=== PATIENT | male | born 1965 | race Caucasian/White ===

== ENCOUNTER → 2017-12-05 08:01 | Outpatient (CLI) | payer OTHER, SELFPAY | PROVIDERS: Family Provider Family Medicine; PCP Family Medicine; Visit Provider Family Medicine | DX: R07.89 Other chest pain (principal) | CPT/HCPCS: 93017 ==

== ENCOUNTER → 2019-05-27 16:21 | Outpatient (CLI) | payer OTHER, SELFPAY ==
--- NOTE | 2019-05-27 16:26 | XR_ITS ---
PROCEDURE: XR HAND LT MIN 3V CLINICAL INDICATION: LT HAND INJURY Crush injury to the left hand to the 4th digit COMPARISON: No exams were available for comparison FINDINGS: No obvious fracture or dislocation. There are osteoarthritic changes of the scapho trapezium and scapho trapezoid joint. A small calcific density is present lateral to the distal aspect of the scaphoid and may be due to some dystrophic periarticular calcification. Please correlate as the patient's area of pain and tenderness. There are small cystic areas of the lunate and capitate and trapezoid and the ulnar styloid process. There are mild osteoarthritic changes of the 1st metacarpophalangeal joint. Other findings:None. IMPRESSION: No acute fracture. Degenerative changes of the wrist Dictated by: Niall Gauthier MD 05/27/2019 17:05 Electronically signed by Niall Gauthier MD in [place] 05/27/2019 17:05
== END ==
PROVIDERS: PCP Family Medicine; Visit Provider Nurse Practitioner Family
DX: S69.90XA Unspecified injury of unspecified wrist, hand and finger(s), initial encounter (principal)
CPT/HCPCS: 73130

== ENCOUNTER 2019-09-26 20:03 | Emergency (ER) | payer OTHER, SELFPAY ==
[2019-09-26 20:03] VITALS: BP 145/97; PULSE 89; RESP 16; O2SAT 97; BMI 30.8
[2019-09-26 20:24] VITALS: BP 145/97; PULSE 89; RESP 16; TEMP 36.8; O2SAT 97; BMI 30.8
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
[2019-09-26 20:52] VITALS: BP 145/97; PULSE 89; RESP 16; TEMP 36.8; O2SAT 97
== END 2019-09-26 20:55 | disposition home or self-care (01) ==
LOC: ER 20:05 → UTC 20:18
PROVIDERS: Emergency Provider Nurse Practitioner; PCP Family Medicine
DX: S60.521A Blister (nonthermal) of right hand, initial encounter (principal); L08.9 Local infection of the skin and subcutaneous tissue, unspecified; E11.9 Type 2 diabetes mellitus without complications
CPT/HCPCS: 99201

== ENCOUNTER 2019-10-14 08:00 | Outpatient (RCR) | payer OTHER, SELFPAY ==
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
== END 2019-10-14 08:05 | disposition home or self-care (01) ==
LOC: PT 08:00
PROVIDERS: PCP Family Medicine; Visit Provider Family Medicine
DX: M50.30 Other cervical disc degeneration, unspecified cervical region (principal)
CPT/HCPCS: 97010; 97012; 97014; 97110; 97140; 97163; 97530; G0283

== ENCOUNTER → 2020-09-13 11:38 | Outpatient (CLI) | payer OTHER, SELFPAY ==
--- NOTE | 2020-09-13 11:45 | CT_ITS ---
PROCEDURE: CT ABDOMEN PELVIS WO CON CLINICAL INDICATION: ABD PAIN Right groin and right flank pain COMPARISON: CT ABDPELW/O CT ABD PELVIS W/O CONTRAST from 11/20/2012 TECHNIQUE: Axial images obtained with sagittal and coronal reformats. All CT scans at the facility use one or more dose reduction, viz: automated exposure control, ma/kV adjustment per patient size (including targeted exams where dose is matched to indication, i.e. head), or iterative reconstruction technique. FINDINGS: LOWER THORAX: There is minimal thickening of the pericardium anteriorly and inferiorly. 16 mm soft tissue density is noted in the subpleural fat in the right lung base and may be due to a lymph node. ABDOMEN & PELVIS: The liver, spleen, adrenal glands, and pancreas have an unremarkable appearance. Mild to moderate right hydronephrosis and right hydroureter noted secondary to a 7 mm stone in the mid aspect of the right ureter at the L4-5 level. There is mild stranding of the right perinephric and proximal periureteral fat. There are numerous bilateral renal calculi at 4 mm or less in both kidneys. No left ureteral calculi evident. Unremarkable appendix. No intestinal obstruction or free air. No pelvic mass or abnormal fluid collection. Tiny umbilical hernia containing fat. There are postsurgical changes of the lumbar spine at L4-5 with significant artifact. There is degenerative disc disease in the lower thoracic spine and lumbar spine. Metallic implantable device is present in the right paraspinal region at L2-L3 with a lead or catheter to the posterior paraspinal area at this region. There are degenerative changes of the hips. IMPRESSION: 1. 7 mm right mid ureteral stone with mild to moderate right hydroureteronephrosis and bilateral nephrolithiasis. 2. Postsurgical and degenerative changes of the lumbar spine as described above. Dictated by: Niall Gauthier MD 09/13/2020 12:33 Niall Gauthier MD in [place] 09/13/2020 12:33
== END ==
PROVIDERS: PCP Family Medicine; Visit Provider Nurse Practitioner Family
DX: R10.9 Unspecified abdominal pain (principal)
CPT/HCPCS: 74176

== ENCOUNTER → 2020-09-17 14:34 | Outpatient (CLI) | payer OTHER, SELFPAY ==
--- NOTE | 2020-09-17 14:39 | XR_ITS ---
PROCEDURE: XR KUB CLINICAL INDICATION: kidney stone COMPARISON: CT CT ABDOMEN PELVIS WO CON from 09/13/2020 FINDINGS: There are numerous bilateral small renal calculi. The largest stone on the left is approximately 6 mm. Stones on the right are 3-4 mm.. Degenerative changes are present in the lumbar spine with lumbar curvature convex left. There postsurgical changes at L4-5 and a neurostimulator device is also noted. The bowel gas pattern is nonspecific. IMPRESSION: Bilateral nephrolithiasis Dictated by: Niall Gauthier MD 10/27/2020 13:48 Niall Gauthier MD in [place] 10/27/2020 13:48
== END ==
PROVIDERS: PCP Family Medicine; Visit Provider Urology
DX: N20.0 Calculus of kidney (principal)
CPT/HCPCS: 74018

== ENCOUNTER → 2020-09-18 08:45 | Outpatient (CLI) | payer OTHER, SELFPAY ==
[2020-09-18 08:48] LABS: MANUAL DIFFERENTIAL MANUAL DIFFERENTIAL (MANUAL DIFF)
[2020-09-18 09:11] LABS: Basophils # 0.1 K/mm3 (0-0.2); Eosinophils # 0.7 K/mm3 (0.0-0.4); Eosinophils % 9.3 % (0.1-12.0); Hematocrit 44.3 % (42.0-52.0); Hemoglobin 14.9 g/dL (14.1-18.0); Lymphocytes # 2.5 K/mm3 (0.7-4.5); Lymphocytes % 31.3 % (10-50); Mean Corpuscular HGB Conc 33.7 g/dL (31.8-35.4); Mean Corpuscular Hemoglobin 30.2 pg (27.0-31.2); Mean Corpuscular Volume 89.5 fl (80-94); Mean Platelet Volume 8.6 fl (7.4-10.4); Monocytes # 0.5 K/mm3 (0.1-1.0); Monocytes % 6.3 % (1.7-9.3); Neutrophils # 4.1 K/mm3 (1.8-7.8); Neutrophils % 52.1 % (37.0-80.0); Platelet Count 180 K/mm3 (142-424); Red Blood Count 4.95 M/mm3 (4.60-6.20); Red Cell Distribution Width 12.8 % (11.5-17.5); White Blood Count 7.8 K/mm3 (4.8-10.8)
[2020-09-18 10:00] LABS: Chloride 105 mmol/L (98-107); Potassium 4.5 mmoL/L (3.5-5.1); Sodium 139 mmol/L (136-145)
[2020-09-18 10:03] LABS: Anion Gap 15.5 mEq/L (5-15); Blood Urea Nitrogen 41 mg/dl (9-20); Carbon Dioxide 23 mmol/L (22.0-30.0); Estimated Glomerular Filt Rate 52 ml/min (>60); GFR (African American) 63 ML/MIN (>60); Glucose 133 mg/dl (74-100)
[2020-09-18 10:10] LABS: Eosinophils % 5 % (0-3); Lymphocytes % 24 % (10-50); Monocytes % 10 % (2-9); Neutrophils % 61 % (42-76); Platelet Estimate Normal; RBC Morphology Normal; Total Cells Counted 100
== END ==
PROVIDERS: Visit Provider Urology
DX: Z01.812 Encounter for preprocedural laboratory examination (principal); Z11.52 Encounter for screening for COVID-19; N20.0 Calculus of kidney
CPT/HCPCS: 36415; 80048; 85007; 85014; 85018; 85048; 85049; U0003

== ENCOUNTER 2020-09-20 11:16 | Day surgery (SDC) | payer OTHER, SELFPAY ==
[2020-09-20] VITALS (10 sets, daily range): BP systolic 116–148; BP diastolic 57–94; PULSE 70–94; RESP 12–18; TEMP 36.7–38; O2SAT 90–97; BMI 32.7
[2020-09-20 12:27] LABS: POC Glucose,Bedside 139 (70-110)
--- NOTE | 2020-09-20 16:47 | FL_ITS ---
PROCEDURE: FLUORO UP TO 1 HOUR CLINICAL INDICATION: STONE RETRACTION COMPARISON: No exams were available for comparison FINDINGS: Fluoroscopy time: 2.7 minutes Two images are submitted during the procedure and nerve limited diagnostic quality. Ureteral stent has been placed with the proximal aspect curled in the right upper abdomen in the distal aspect of the lower pelvis on the right. Please correlate with fluoroscopic findings. IMPRESSION: Status post right ureteral stent placement Dictated by: Niall Gauthier MD 09/22/2020 07:43 Niall Gauthier MD in [place] 09/22/2020 07:43
[2020-09-20 16:58] LABS: POC Glucose,Bedside 139 (70-110)
--- NOTE | 2020-09-20 17:05 | P.OP_ITS ---
Date of procedure: 09/20/20 Pre-op Diagnosis:: Right proximal ureteral calculus Post-op Diagnosis:: Same Procedure performed:: Right ureteroscopy, laser lithotripsy, stone extraction, right stent placement Surgeon:: Onofre Harding MD FABRICATION MACHINE OPERATOR:: Other (che phillpis) Anesthesia: LMA Estimated blood loss (mL): 0 Clinical Note:: 55-year-old white male seen last week with history of right renal colic noted to have a 7 mm proximal right ureteral calculus on CT scan. He presents today for urologic management. Operative findings:: 7 mm stone still present in the upper right ureter. Right ureteroscopy was performed and the stone was fragmented and couple fragments were removed the smaller stone fragments should pass. Operative note:: Patient taken to the operating room after informed consent was obtained. He was placed on the operating table in the supine position and general anesthesia administered. Preoperative antibiotics and sequential compression devices were placed. Was then placed into the dorsal lithotomy position prepped draped in the standard surgical fashion. The 22 Rojelio passed into the urethral meatus and into the bladder without difficulty. The bladder was examined in a systematic fashion and there was no evidence of mucosal normalities, stones, diverticula or trabeculation. The ureteral orifices in their normal anatomic position. A 0.035 guidewire was passed through the scope and into the right ureteral orifice and under fluoroscopy the wire passed up to the level of the stone and is bladder was manipulated by the stone with minimal difficulty. A second wire was then placed. A 13/15 navigator ureteral sheath was then passed over one of the wires and the wire removed. Our flexible ureteroscope passed through the sheath and up to the level of the stone. There was some tortuosity right at the stone and still difficult to get up to it. Once we were able to get up to the stone the 200 nm laser fiber was passed through the scope and the stone broke and then the several smaller fragments. 1stone passed more proximally into the renal pelvis and couple of the smaller stones in the ureter were grasped with a 1.9 Mongolian nitinol stone basket and removed. The other stone fragments were deemed small enough to pass on their own. The ureteroscope then removed and our cystoscope was replaced and backloaded over the safety wire. A 6 x 26 Mongolian stent was passed over the wire and under fluoroscopy the wire removed and a good curl was noted proximally and distally. The string was left on for later removal. Urojet placed into the urethra. The patient tolerated seizure well there are no complications. Condition: stable Disposition: PACU Specimens:: Stone not sent Complications:: None
--- NOTE | 2020-09-20 17:21 | HMH.ANESCL ---
[facility] Anesthesia Checklist - Patient Identification Patient Identification: Arm Band - Structural Data Admitted From: Home Planned Operative Procedure/s: Ureterscopy Consent for Planned Operative Procedure(s) Verified: Yes Verified Documents: Surgical Consent, History and Physical - NPO Status Verified Time NPO: 00:00 - Additional verifications Anesthesia Reactions: No Hx Blood Transfusions: Yes Blood Transfusion Reaction: No - Airway Assessment C-Spine Mobility Assessed: Yes TMJ Mobility Assessed: Yes Dentition: Good Dentition - Neurological Assessment Level of Consciousness: Awake, Alert - Anesthesia Plan Anesthesia Risk discussed: Yes Anesthesia Plan: Verified ASA Class: III Anesthesia Type: General [facility] History Medical History: Reports:: Diabetes Mellitus Type 2 Denies:: Cancer, Diabetes Mellitus Type 1, Internal Pacemaker, MRSA, Seizures *Have you ever received a pneumonia vaccine?: No *Have you received a flu vaccine this season?: Yes Other Medical History: Denies: Blood Transfusion Reaction Anesthesia experience/problems:: None Laterality Cases: Bilateral: Tonsillectomy Other Surgeries: Yes: No Previous Surgery, Colonoscopy. No: Pacemaker Amputation: No Fractures: No - *Social History Last grade of school completed: High school graduate Smoking Status: Former smoker Smoking End Date: 06/2020 Alcohol Intake: former Substance Use Type: denies use *Occupational Status:: unemployed Housing: house Household Members: none *Travel in the last 8 weeks: None Family Hx:: Unable to obtain
--- NOTE | 2020-09-20 17:23 | HMH.ANESI ---
[facility] Anesthesia Record Part I Intake, IV Amount: 800 Estimated blood loss (mL): 5 Urine output (mL): 0 Blood Pressure: 141/78 SaO2: 93 Pulse Rate: 94 Respiratory Rate: 12 Temperature: 98.4 F Patient is:: Awake, Drowsy Stable to PACU at:: 16:55
--- NOTE | 2020-09-21 07:16 | P.PN_ITS ---
[facility] Anesthesia Record Part II Discharge Time: 17:15 Destination: Surgical Day Care (OP Surgery) PACU nurse assessment reviewed?: Yes Patient Condition:: Good Anesthesia Complications:: None Swallowing reflex intact?: Yes Cyanosis?: No Blood Pressure: 116/64 Pulse Rate: 77 Temperature: 98.4 F Mental Status: Alert & Oriented Pain level:: 0 Nausea and/or vomitting:: None Intake, IV Amount: 800
[2020-09-21 07:17] VITALS: BP 116/64; PULSE 77; TEMP 36.9
== END 2020-09-20 17:48 ==
PROVIDERS: PCP Family Medicine; Visit Provider Urology
PROC: (CPT 52352; principal; 2020-09-20 13:00)
DX: N20.1 Calculus of ureter (principal); E11.9 Type 2 diabetes mellitus without complications; Z79.899 Other long term (current) drug therapy; Z87.891 Personal history of nicotine dependence
CPT/HCPCS: 52353; 76000; 82962; 96374; C2617; J0131; J2405

== ENCOUNTER → 2020-09-28 11:10 | Outpatient (CLI) | payer OTHER, SELFPAY ==
--- NOTE | 2020-09-28 11:13 | XR_ITS ---
PROCEDURE: XR KUB CLINICAL INDICATION: CALCULUS OF KIDNEY COMPARISON: CT CT ABDOMEN PELVIS WO CON from 09/13/2020 CR XR KUB from 09/17/2020 FINDINGS: There are bilateral renal calculi as noted from the recent CT scan. A right ureteral stent is in place. Faint calcific density is present along the proximal portion of the stent suggesting a ureteral stone or small stone fragments measuring 3 and 4 mm to the right and to the left the ureteral stent. Degenerative changes lumbar spine with neurostimulator device and prior lumbar surgery at the L4-5 level. Lumbar scoliosis convex left. IMPRESSION: Bilateral nephrolithiasis. Right ureteral stent is in place with suspected small stones or stone along the proximal aspect of the right ureter Dictated by: Niall Gauthier MD 09/28/2020 12:43 Niall Gauthier MD in [place] 09/28/2020 12:43
== END ==
PROVIDERS: PCP Family Medicine; Visit Provider Urology
DX: N20.0 Calculus of kidney (principal)
CPT/HCPCS: 74018

== ENCOUNTER → 2020-10-22 12:54 | Outpatient (CLI) | payer OTHER, SELFPAY ==
--- NOTE | 2020-10-22 12:56 | XR_ITS ---
PROCEDURE: XR KUB CLINICAL INDICATION: KIDNEY STONE COMPARISON: CT CT ABDOMEN PELVIS WO CON from 09/13/2020 CR XR KUB from 09/28/2020 FINDINGS: There are numerous bilateral renal calculi. The right ureteral stent has been removed. No definite ureteral calculus apparent. Degenerative and postsurgical changes are present in the lumbar spine as before. IMPRESSION: Bilateral nephrolithiasis. No obvious ureteral calculus. Dictated by: Niall Gauthier MD 10/22/2020 13:38 Niall Gauthier MD in [place] 10/22/2020 13:38
== END ==
PROVIDERS: PCP Family Medicine; Visit Provider Urology
DX: N20.0 Calculus of kidney (principal)
CPT/HCPCS: 74018

== ENCOUNTER → 2021-05-30 09:37 | Outpatient (CLI) | payer OTHER, SELFPAY ==
[2021-05-31 06:41] LABS: Covid-19 Nasal PCR Sendout Lex NOT DETECTED
== END ==
PROVIDERS: PCP Family Medicine; Visit Provider Nurse Practitioner
DX: Z20.822 Contact with and (suspected) exposure to COVID-19 (principal)
CPT/HCPCS: C9803; U0004; U0005

== ENCOUNTER → 2022-04-28 11:52 | Outpatient (CLI) | payer OTHER, SELFPAY ==
--- NOTE | 2022-04-28 12:03 | XR_ITS ---
FINAL REPORT CLINICAL HISTORY: COVID FINDINGS: The heart size is normal. The mediastinum is within normal limits. There is mild bibasilar atelectasis or pneumonia. There is no pleural effusion. There is no pneumothorax. The bony thorax is intact. IMPRESSION: Mild bibasilar atelectasis or pneumonia. Reviewed, Interpreted and Dictated by Jose Roberto Aguilar III, MD Transcribed by Oscar Delgado Authenticated and [facility]
[2022-04-28 12:13] LABS: Influenza A, PCR Not Detected (NotDetected); Influenza B, PCR Not Detected (NotDetected)
[2022-04-28 12:52] LABS: Coronavirus 19, PCR Detected (NotDetected)
== END ==
PROVIDERS: PCP Family Medicine; Visit Provider Physician Assistant
DX: U07.1 COVID-19 (principal)
CPT/HCPCS: 71045; C9803; U0003; U0005

== ENCOUNTER → 2023-01-22 15:16 | Outpatient (CLI) | payer OTHER, SELFPAY ==
--- NOTE | 2023-01-22 15:23 | CT_ITS ---
FINAL REPORT TECHNIQUE: Thin section axial images were obtained through the lungs using a low-dose technique per lung cancer screening protocol. Reconstruction images were obtained using the axial data. Exam was performed using dose reduction technique. CLINICAL HISTORY: NICOTINE USE FORMER SMOKER, CURRENTLY VAPES, QUIT SMOKING 6 YRS AGO, SMOKED 2 PKS PER DAY X 20 YRS COMPARISON: None FINDINGS: CTDLvol: 2.9 DLP: 118.81 Former smoker pack year history Lungs: No acute pulmonary abnormality. No suspicious nodules. Evidence of prior granulomatous disease is present in the lung alvarado. Lymph nodes: No thoracic lymphadenopathy. Mediastinum: Heart size is normal. Pleura/pericardium: No pleural or pericardial effusion. Other: A nonobstructing right renal stone is noted. IMPRESSION: No suspicious pulmonary nodule or mass. Lung RADS: 1 Recommendation: 12-month follow-up LDCT Reviewed, Interpreted and Dictated by Tiffanie Shi MD Transcribed by Regine Olsen Authenticated and . [facility]
== END ==
PROVIDERS: PCP Family Medicine; Visit Provider Family Medicine
DX: Z72.0 Tobacco use (principal)
CPT/HCPCS: 71271

== ENCOUNTER 2023-06-14 07:57 | Day surgery (SDC) | payer OTHER, SELFPAY ==
[2023-06-13 10:51] VITALS: BMI 29.2
[2023-06-14] MEDS: LACTATED RINGERS 1000ML 1,000 ML 100 ML IV (08:20)
[2023-06-14 08:23] VITALS: BP 125/68; PULSE 77; RESP 18; TEMP 36.5; O2SAT 99
--- NOTE | 2023-06-14 08:34 | P.PNANES_ITS ---
[facility] Disclaimer: The information contained in this section may have been updated after the patient was seen, as this information can be updated by other users. Medical History Diabetes mellitus, type 2 History of COVID-19 History of gastroesophageal reflux (GERD) Hyperlipidemia Surgical History History of nasal surgery History of surgery Hx of colonoscopy Family History Other No significant family history Social History Smoking Status: Current every day smoker alcohol intake: former substance use type: denies use current occupational status: employed Travel in the last 8 weeks: None household members: none housing: house current occupational exposures/hazards: No caffeine: Yes [facility] Anesthesia Checklist Patient Identification Patient Identification: Arm Band and Verbal (Name & ) Structural Data Admitted From: Home Planned Operative Procedure/s: Colonoscopy Consent for Planned Operative Procedure(s) Verified: Yes NPO Status Verified Time NPO: 00:00 Additional verifications Anesthesia Reactions: No Hx Blood Transfusions: Yes Blood Transfusion Reaction: No Airway Assessment Mallampati Score:: Class II C-Spine Mobility Assessed: Yes TMJ Mobility Assessed: Yes Dentition: Good Dentition Neurological Assessment Level of Consciousness: Awake Hx Seizures: No Numbness or tingling in extremities: No Anesthesia Plan Anesthesia Risk discussed: Yes Anesthesia Plan: Verified ASA Class: II Anesthesia Type: MAC
[2023-06-14 09:01] VITALS: O2SAT 95
--- NOTE | 2023-06-14 09:11 | HMH.SCOPE ---
Procedure: Date: 06/14/23 Patient Date of :: 1965 Procedure Performed:: Screening Colonoscopy Indications:: Colon cancer screening Performing Provider:: Forest Staton MD Referring Provider:: Damon Smith Sedation:: Propofol Procedure:: After placing the patient in the left lateral decubitus position, the colonoscopy was gently inserted into the rectum and under direct visualization advanced to the cecum which was identified by transillumination in the right lower quadrant, identification of the ileocecal valve, appendiceal orifice, and cecal strap. Color, texture, mucosa, and anatomy of the colon were carefully examined with the scope. Findings:: Anal canal: normal Rectum: normal Sigmoid colon: normal without polyps or inflammatory changes Descending colon: normal without polyps or inflammatory changes Splenic flexure: normal Transverse colon: normal without polyps or inflammatory changes Hepatic flexure: normal Ascending colon: normal without polyps or inflammatory changes Cecum: normal Terminal ileum: not visualized Impression: Normal colonoscopy Recommendations:: Follow up examination in about TEN years or so, sooner if clinically indicated. Complications:: None Estimated blood obtained (mL): 0 Colonoscopy Component Colonoscopy Component Was a colonoscopy performed during today's procedure?: Yes Recommended follow up colonoscopy of at least 10 years?: Yes
[2023-06-14 09:13] VITALS: BP 109/66; PULSE 82; RESP 14; TEMP 36.4; O2SAT 92
[2023-06-14 09:23] VITALS: BP 90/66; PULSE 87; RESP 17; O2SAT 95
[2023-06-14 09:33] VITALS: BP 97/53; PULSE 86; RESP 17; O2SAT 96
[2023-06-14 09:41] VITALS: BP 97/56; PULSE 86; RESP 17; O2SAT 96
[2023-06-14 10:58] LABS: POC Glucose,Bedside 104 (70-110)
== END 2023-06-14 09:47 | disposition home or self-care (01) ==
PROVIDERS: PCP Psychiatry & Neurology Sleep Medicine; Visit Provider Internal Medicine Gastroenterology
PROC: (CPT 45378; principal; 2023-06-14 09:00)
DX: Z12.11 Encounter for screening for malignant neoplasm of colon (principal); E11.9 Type 2 diabetes mellitus without complications
CPT/HCPCS: 45378; 82962

== ENCOUNTER 2023-09-06 14:28 | Outpatient (CLI) | payer OTHER, SELFPAY ==
--- NOTE | 2023-09-06 14:38 | XR_ITS ---
FINAL REPORT CLINICAL HISTORY: RT SACROILIAC JOINT PAIN COMPARISON: None FINDINGS: 4 images of the right hip were obtained. There is no evidence of fracture or dislocation. There is moderate right hip degenerative change, mild left hip degenerative change. There is mild degenerative change of the sacroiliac joints bilaterally. Postoperative changes are noted in the lower lumbar spine. There is no soft tissue abnormality identified. IMPRESSION: Moderate right hip degenerative change, mild left hip degenerative change. There are also mild degenerative changes of the SI joints bilaterally. Postoperative changes lower lumbar spine. Reviewed, Interpreted and Dictated by Jose Roberto Aguilar III, MD Transcribed by Regine Olsen Authenticated and [facility]
== END 2023-09-06 23:59 | disposition home or self-care (01) ==
LOC: RAD 14:29
PROVIDERS: PCP Family Medicine; Visit Provider Family Medicine
DX: M25.551 Pain in right hip (principal); M53.3 Sacrococcygeal disorders, not elsewhere classified
CPT/HCPCS: 73502

== ENCOUNTER 2023-10-03 06:02 | Day surgery (SDC) | payer OTHER, SELFPAY ==
[2023-10-01 12:58] VITALS: BMI 29.9
--- NOTE | 2023-10-03 | XR_ITS ---
FINAL REPORT CLINICAL HISTORY: HIP INJ IN OR FT 7 SECONDS 2.01 mGy FINDINGS: FLUOROSCOPY LESS THAN 1 HOUR HISTORY: Fluoroscopy guidance. Fluoroscopic guidance was provided for hip injection in the OR. A single spot film was obtained. A total of 7 seconds of fluoroscopy time were used. Total DAP: 2.01 mGy IMPRESSION: As above. Reviewed, Interpreted and Dictated by Jose Roberto Aguilar III, MD Transcribed by María Ruiz Authenticated and . [facility]
[2023-10-03] MEDS: LACTATED RINGERS 1000ML 1,000 ML 25 ML IV (06:20)
[2023-10-03 06:25] VITALS: BP 117/74; PULSE 63; RESP 18; TEMP 36.6; O2SAT 97
[2023-10-03 06:41] LABS: POC Glucose,Bedside 162 (70-110)
[2023-10-03] MEDS: LIDOCAINE 1% 20ML MDV 20 ML (07:41)
[2023-10-03] MEDS: TRIAMCINOLONE ACET 40MG/ML VIAL 80 MG (07:41)
[2023-10-03 07:50] VITALS: BP 146/76; PULSE 77; RESP 18; TEMP 36.9; O2SAT 93
--- NOTE | 2023-10-03 07:52 | EXP.OP.NOTE ---
Date of procedure: 10/03/23 Pre-op Diagnosis:: Right hip osteoarthritis Post-op Diagnosis:: Same Procedure performed:: Right hip injection with arthrogram x-ray guidance for needle placement Surgeon:: Alistair Rivas DO MACHINE SKIVER:: Neri Up Anesthesia: MAC Estimated blood loss (mL): 0 Operative findings:: See dictation Operative note:: Patient is identified preoperatively. Right hip marked with yes my initials. Transferred operative suite placed upon the radiolucent bed. Right hip was then prepped and draped normal sterile fashion. Once prepped and draped final operative timeout performed to identify proper patient procedure and extremity. Everyone involved the case agreed. No counter indications to beginning. X-ray machine was brought into identify the right hip capsule. 18-gauge spinal needle was then directed on the proper trajectory into the hip capsule. Contrast with Isovue was injected and confirmed proper placement of the needle within the hip capsule. Once confirmed 80 mg of Kenalog 3 cc of 1% lidocaine injected to the hip capsule without complication. Needle removed Band-Aid placed. Patient waken from sedation taken recovery stable condition Condition: stable Disposition: PACU Complications:: None apparent
[2023-10-03 08:00] VITALS: BP 98/59; PULSE 76; RESP 18; TEMP 36.9; O2SAT 95
--- NOTE | 2023-10-03 08:08 | P.PNANES_ITS ---
[facility] Disclaimer: The information contained in this section may have been updated after the patient was seen, as this information can be updated by other users. Medical History History of COVID-19 History of gastroesophageal reflux (GERD) Diabetes mellitus, type 2 Hyperlipidemia Surgical History History of surgery BONE FUSION History of nasal surgery Hx of colonoscopy Family History Other No significant family history Social History Smoking Status: Current every day smoker alcohol intake: former substance use type: denies use current occupational status: employed Travel in the last 8 weeks: None household members: none housing: house current occupational exposures/hazards: No caffeine: Yes [facility] Anesthesia Checklist Patient Identification Patient Identification: Arm Band Structural Data Admitted From: Home Planned Operative Procedure/s: Right Hip Injection with Arthrogram Consent for Planned Operative Procedure(s) Verified: Yes Verified Documents: Surgical Consent and History and Physical NPO Status Verified Time NPO: 00:00 Additional verifications Anesthesia Reactions: No Hx Blood Transfusions: No Blood Transfusion Reaction: No Airway Assessment Mallampati Score:: Class II C-Spine Mobility Assessed: Yes TMJ Mobility Assessed: Yes Dentition: Good Dentition Neurological Assessment Level of Consciousness: Awake, Alert and Appropriate Anesthesia Plan Anesthesia Risk discussed: Yes Anesthesia Plan: Verified ASA Class: II Anesthesia Type: MAC
[2023-10-03 08:10] VITALS: BP 132/77; PULSE 66; RESP 18; TEMP 36.9; O2SAT 96
[2023-10-03 08:20] VITALS: BP 132/70; PULSE 63; RESP 18; TEMP 36.9; O2SAT 93
== END 2023-10-03 08:20 | disposition home or self-care (01) ==
PROVIDERS: PCP Family Medicine; Visit Provider Orthopaedic Surgery
PROC: (CPT 20610; principal; 2023-10-03 07:30)
DX: M16.11 Unilateral primary osteoarthritis, right hip (principal); E11.9 Type 2 diabetes mellitus without complications; Z79.84 Long term (current) use of oral hypoglycemic drugs; Z79.899 Other long term (current) drug therapy
CPT/HCPCS: 20610; 73502; 76000; 82962; J7120

== ENCOUNTER 2023-10-19 16:00 | Outpatient (RCR) | payer OTHER, SELFPAY ==
--- NOTE | 2023-09-18 09:14 | HMH.PTOPEV ---
PT Outpatient Evaluation Rehab PT Outpatient Evaluation Start: 09/18/23 07:54 Freq: Status: Active Protocol: Document 09/18/23 07:54 MALIKHedy (Rec: 09/18/23 09:14 ARCHANA [id number]) E-signed By Balbina Parker, PT Outpatient Therapy Subjective History Subjective History Pt is a 58 y/o male who reports onset of right-sided low back pain at least 6 months ago with gradual worsening overtime. Pt reports pain was localized in the right posterior hip for a couple weeks then he experienced onset of intermittent brief radiating pain down the right lateral leg to the ankle. Pt denies numbness/tingling or b/b dysfunction. Pt reports radiating pain occurs with certain movements such as repositioning himself in bed but does not occur that often. Pt had a right hip xray on 09/06/23 with impression of Moderate right hip degenerative change, mild left hip degenerative change. There are also mild degenerative changes of the SI joints bilaterally. Postoperative changes lower lumbar spine. Pt reports he was prescribed lidocaine patches and steroids which he states did not seem to help much with overall pain. Pt reports he is scheduled to see Dr. Rivas today regarding R hip pain. 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 Pt reports pain improves with application of ice to his back and resting his hands on his knees while at work. Medical History: Type II Diabetes, Hx lumbar fusion L5- S1 per pt (pt states he had a bone stimulator place >20 years ago he never had removed ) New diagnosis of cancer in past 12 No months? Chief Complaint Pain Symptom Type Throb,Sharp,Burning,Shooting Symptoms Relieved By Ice,Prescription Meds Symptoms Aggravated By Standing,Physical Activity, Walking,Lifting Current Functional Limitations Lifting,Housework,Sleeping, Standing,Squatting,Walking, Stairs Symptom Description Constant but Variable Level of pain today (0-10) 6 Pain scale - at its best (0-10) 6 Pain scale - at its worst (0-10) 8 Lumbopelvic Eval Posture Lumbar Spine Posture Standing Position Decreased Lordosis Gait Observation General Gait Pattern Observation Antalgic Gait Palapation tenderness bilateral lumbar spinal tenderness Yes buttock tenderness Yes: R piriformis, glute med/ min, hip flexor Lumbar/Sacral Palpation Findings Tenderness Accessory Movement L-spine Vertebrae Accessory Movements Central P/A [place] that Elicit Symptoms L4 bilateral L5 bilateral S1 bilateral Range of Motion Lumbar Spine Active Flexion Range of 75 Motion (degrees) Lumbar Spine Active Extension Range of 10 Motion (degrees) Left Lumbar Spine Lateral Flexion Active 10 Range of Motion (degrees) Right Lumbar Spine Lateral Flexion 10 Active Range of Motion (degrees) Manual Muscle Test Left Knee Extension Strength Grade 5 Normal Knee Flexion Strength Grade 5 Normal Hip Flexion Strength Grade 5 Normal Hip Abduction Strength Grade 4 Good Hip Adduction Strength Grade 4 Good Hip Extension Strength Grade 4- Good- Ankle Dorsiflexion Strength Grade 5 Normal Right Knee Extension Strength Grade 4 Good Knee Flexion Strength Grade 4 Good Hip Flexion Strength Grade 4 Good Hip Abduction Strength Grade 4- Good- Hip Adduction Strength Grade 4- Good- Hip Extension Strength Grade 4- Good- Ankle Dorsiflexion Strength Grade 5 Normal DTR Rt Patellar 1+ Lt Patellar 2+ Rt Gastroc/Soleus 2+ Lt Gastroc/Soleus 2+ Altered Sensation Bilateral Comment equal and intact to light touch sensation bilaterally Special Tests Hip Scouring (Quadrant) Test Positive Right Hip Piriformis Test Positive Right Unilateral Straight Leg Raise (Lasegue) Negative Left,Positive Right Test Gerber Test Positive Lumbar Long [place] Distraction Test/Manual Positive Traction Hip/Knee Eval ROM right Hip Flexion w/Knee Flexed Active Range 100 of Motion (degrees) Hip External Rotation Active Range of 32 Motion (degrees) Hip Internal Rotation Active Range of 20 Motion (degrees) Oswestry Index Section 1 Pain Intensity The pain comes and goes and is severe Section 2 Personal Care (Washing,Dresing) my way of washing or dressing even though it causes some pain Section 3 Lifting I can lift heavy weights, but it gives me extra pain Section 4 Walking I cannot walk more than 1/4 mile without increasing pain Section 5 Sitting Pain prevents me from sitting for more than one hour Section 6 Standing I cannot stand more than 1 hour without increasing pain Section 7 Sleeping Because of pain, my normal nights sleep is less than 2 hours sleep Section 8 Social Life Pain has restricted my social life and I do not go out often Section 9 Traveling I get extra pain while traveling, but it does not compel me to seek al Section 10 Changing Degreee of Pain My pain is gradually getting worse Score and Risk Level Oswestry Sc 27 Oswestry Risk Level Severe Disability Outpatient Therapy Assessment Impairments Problems/Impairmments Palpation Tenderness,Impaired Range of Motion,Impaired Strength,Impaired Walking, Impaired Standing,Impaired Lifting,Impaired Household Care,Impaired Stair Climbing, Impaired Squatting,Impaired Work Activities,Subjective C/O Pain,Impaired Self Care/Self Management Prognosis Rehab Potential Good Clinical Impression Consistent with Diagnosis Yes Short Term Goals Number of Weeks 3 Decrease Subjective C/O Pain Yes: Improve pain at worst to 6/10 to improve overall QOL Improve Self Care/Self Management Yes Patient to be Ind w/ HEP Yes Longterm Goals Number of Weeks 6 Increase Range of Motion Yes: Improve lumbar AROM flex to 80-90, ext & LF to 15-20; R hip IR to 30 Increase Strength Yes: Improve RLE MMT to 4+/5 grossly to assist with function Improve Gait Pattern without Assistive Yes: non-antalgic to decrease Device fall risk Improve Ability to Climb Stairs Yes: 1 flight with HR reciprocally to assist with community navigation Improve Oswestry Score Yes: Improve score to 22 or less to improve overall QOL Decrease Subjective C/O Pain Yes: Improve pain at worst to 4/10 to improve overall QOL Outpatient Therapy Plan of Care Treatment Plan May Include Therapeutic Exercise Including Home Yes Exercise Program Manual Therapy Techniques Yes Neuromuscular Re-education Yes Therapeutic Activities to Return to Yes Previous Functional/Work Level ADL/Self Care Education Yes Dry Needling Yes Thermal Modalities Yes Electrical Stimulation Yes Ultrasound/Phonophoresis Yes Iontophoresis Yes Massage Yes Eval/Re-Eval Yes Frequency Times per week 2 Duration Number of Weeks 4-6 Addendums This patient is a candidate for social No or vocational rehab? Patient/Guardian verbally acknowledges Yes understanding of treatment program and consents to further treatment? Patient/Guardian verbally acknowledges Yes understanding of diagnosis, prognosis and goals for treatment? Eval Complexity PT Charges 97236 - Low Complexity Shoulder/Elbow Eval Shoulder Objective Measurements Elbow Objective Measurements PHYSICIAN CERTIFICATION: I certify the specified therapy services for Anson Brown are required, authorized, and reviewed every 30 days.
== END 2023-10-19 17:00 | disposition home or self-care (01) ==
LOC: PT 16:00
PROVIDERS: Visit Provider Family Medicine
DX: M53.3 Sacrococcygeal disorders, not elsewhere classified (principal); M25.551 Pain in right hip
CPT/HCPCS: 97010; 97014; 97110; 97140; 97163; G0283

== ENCOUNTER 2024-01-17 14:34 | Outpatient (CLI) | payer OTHER, SELFPAY ==
--- NOTE | 2024-01-17 14:40 | XR_ITS ---
FINAL REPORT CLINICAL HISTORY: LEFT ELBOW PAIN SWOLLEN COMPARISON: None FINDINGS: LEFT ELBOW: 3 images of the left elbow were obtained. There is no evidence of fracture or dislocation. There is mild hypertrophic change of the medial joint margin. An ossific structure is adjacent to the lateral epicondyle, well-corticated, that may represent the sequela of prior trauma. There is soft tissue swelling posterior to the olecranon, measuring 1.5 cm in thickness. IMPRESSION: Soft tissue swelling posterior to the olecranon, measuring 1.5 cm in thickness. Mild degenerative change as described. Reviewed, Interpreted and Dictated by Kenneth Colunga MD Transcribed by Regine Olsen Authenticated and [facility]
== END 2024-01-17 23:59 | disposition home or self-care (01) ==
LOC: RAD 14:35
PROVIDERS: PCP Family Medicine; Visit Provider Physician Assistant
DX: M25.522 Pain in left elbow (principal); L03.114 Cellulitis of left upper limb
CPT/HCPCS: 73080

== ENCOUNTER 2024-02-05 14:11 | Outpatient (CLI) | payer OTHER, SELFPAY ==
--- NOTE | 2024-02-05 14:16 | XR_ITS ---
FINAL REPORT CLINICAL HISTORY: right hip pain COMPARISON: 09/06/2023 FINDINGS: RIGHT HIP Two views of the right hip demonstrate no acute fracture or dislocation. There is severe right hip degenerative change, slightly worse than seen in the prior exam of August 2023. There is mild lateral subluxation of the femoral head. No acute bony abnormality is identified. Postoperative and degenerative changes present in the lumbar spine. No soft tissue abnormality is seen. IMPRESSION: Severe degenerative change of the right hip, slightly worse than seen on the prior exam of August 2023. Reviewed, Interpreted and Dictated by Jose Roberto Aguilar III, MD Transcribed by Regine Olsen Authenticated and [facility]
== END 2024-02-05 23:59 | disposition home or self-care (01) ==
LOC: RAD 14:12
PROVIDERS: PCP Family Medicine; Visit Provider Physician Assistant Surgical
DX: M16.11 Unilateral primary osteoarthritis, right hip (principal)
CPT/HCPCS: 73502

== ENCOUNTER 2024-04-01 11:05 | Outpatient (CLI) | payer OTHER, SELFPAY ==
--- NOTE | 2024-04-01 11:12 | XR_ITS ---
FINAL REPORT CLINICAL HISTORY: left knee pain COMPARISON: None FINDINGS: Three views of the left knee reveal no evidence of fracture or dislocation. The bony alignment is normal. There is moderate degenerative change. Lateral subluxation of the tibia is seen in relation to the distal femur. There is severe medial compartment narrowing. A small joint effusion is present. No localized soft tissue abnormality is seen. IMPRESSION: Moderate to severe degenerative/chronic changes as above. Reviewed, Interpreted and Dictated by Jose Roberto Aguilar III, MD Transcribed by María Ruiz Authenticated and [facility]
--- NOTE | 2024-04-01 11:12 | XR_ITS ---
FINAL REPORT CLINICAL HISTORY: right knee pain COMPARISON: None FINDINGS: Three views of the right knee reveal no evidence of fracture or dislocation. The bony alignment is normal. There is mild degenerative change. There is no evidence of joint effusion. No localized soft tissue abnormality is identified. IMPRESSION: Mild degenerative change without acute abnormality identified. Reviewed, Interpreted and Dictated by Jose Roberto Aguilar III, MD Transcribed by María Ruiz Authenticated and [facility]
== END 2024-04-01 23:59 | disposition home or self-care (01) ==
LOC: RAD 11:06
PROVIDERS: PCP Family Medicine; Visit Provider Orthopaedic Surgery
DX: M25.562 Pain in left knee (principal); M17.11 Unilateral primary osteoarthritis, right knee
CPT/HCPCS: 73562

== ENCOUNTER 2024-09-30 06:41 | Outpatient (CLI) | payer OTHER, SELFPAY ==
--- NOTE | 2024-09-30 06:47 | CT_ITS ---
FINAL REPORT CLINICAL HISTORY: TOBACCO USE, former smoker, quit 10 years ago, smoked for 15 years, smoked 2ppd when pt smoked COMPARISON: 01/22/2023 FINDINGS: CTDI vol (mGy): 2.90 DLP: 106.[address] images of the chest were obtained using the low-dose protocol for screening. There is no evidence of mediastinal or hilar mass or adenopathy. No axillary mass or adenopathy is identified. On the lung window images, no pulmonary mass or suspicious nodule is identified. Linear opacity is seen in the posterior left upper lobe, favor atelectasis. There is no consolidation or pleural effusion. Prominent coronary artery calcifications are noted. Limited imaging of the upper abdomen demonstrates a stable, nonobstructing right renal stone. IMPRESSION: Lung RADS category 1 s . Recommend 12 month followup low-dose CT for further evaluation. Prominent coronary artery calcifications. Reviewed, Interpreted and Dictated by Tiffanie Shi MD Transcribed by Justyna Pickett Authenticated and [facility]
== END 2024-09-30 23:59 | disposition home or self-care (01) ==
LOC: RAD 06:42
PROVIDERS: PCP Family Medicine; Visit Provider Physician Assistant
DX: R91.8 Other nonspecific abnormal finding of lung field (principal); I25.10 Atherosclerotic heart disease of native coronary artery without angina pectoris; Z72.0 Tobacco use
CPT/HCPCS: 71271

== ENCOUNTER 2024-10-23 13:50 | Outpatient (RCR) | payer OTHER, SELFPAY | END 2024-10-23 23:59 | disposition home or self-care (01) | LOC: PT 13:50 | PROVIDERS: Visit Provider Orthopaedic Surgery | DX: Z47.89 Encounter for other orthopedic aftercare (principal); Z96.641 Presence of right artificial hip joint | CPT/HCPCS: 97162 ==

== ENCOUNTER 2024-11-18 11:00 | Outpatient (RCR) | payer OTHER, SELFPAY | END 2024-11-18 23:59 | disposition home or self-care (01) | LOC: PT 11:00 | PROVIDERS: Visit Provider Orthopaedic Surgery | DX: Z47.89 Encounter for other orthopedic aftercare (principal); Z96.641 Presence of right artificial hip joint | CPT/HCPCS: 97110; 97116; 97530 ==

== ENCOUNTER 2024-11-26 13:32 | Outpatient (CLI) | payer OTHER, SELFPAY ==
--- OUTSIDE RECORDS SUMMARY | 2024-11-10 07:15 | XMS_ITS ---
Author Organization [facility] Address [address] [place] [id number] Care Team Providers Care Rebeamer Name Role Phone Burke Smith Primary Care Provider Allergies No Known Allergies Results Component Value Reference Range Notes Glycohemoglobin A1c (in hous e) Reviewed date:11/10/2024 02:31:57 PM Interpretation: Performing Lab: Notes/Report: glycohemoglobin 6.9% 5 - 6.5 % REASON FOR VISIT 6 month checkup, Needs colon cancer screening, diabetic eye exam, & shingles vaccine Medications Medication SIG (Take, Route, Frequency, Duration) Notes Start Date End Date Status Tamsulosin HCl 0.4 MG TAKE 1 CAPSULE BY MOUTH AT BEDTIME; Duration: 30 Active traZODone HCl 50 MG 1 tablet at bedtime as needed Orally Once a day; Duration: 90 days Active Neurontin 600 MG 1 tablet Orally Four times a day; Duration: 30 days 10/17/2024 Active Triamterene-HCTZ 37.5-25 MG 1 tab(s) Orally Once a day; Duration: 90 days Active Atorvastatin Calcium 20 MG 1 tablet Orally Once a day; Duration: 90 days Active Ozempic (1 MG/DOSE) 4 MG/3ML INJECT 1 MG ONCE A WEEK SUBCUTANEOUSLY Subcutaneous once a week Active Omeprazole 40 MG TAKE 1 CAPSULE BY MO [facility] ONCE DAILY; Duration: 30 Active metFORMIN HCl 500 MG TAKE 1 TABLET BY MO UT ONCE DAILY; Duration: 30 Active Celecoxib 200 MG TAKE 1 CAPSULE BY MO UT ONCE DAILY WITH FOOD; Duration: 30 Active Albuterol Sulfate HFA 108 (90 Base) MCG/ACT INHALE 2 PUFF(S) BY MOUTH EVERY 6 HOURS NEEDED; Duration: 25 Active Mupirocin 2 % 1 application [place] ally Twice a day; Duration: 5 day(s) 05/12/2024 Active Fluticasone Propionate 50 MCG/ACT as directed in each nostril once a day; Duration: 30 day(s) 03/06/2022 Active Problems Problem Type SNOMED Code ICD Code Onset Dates Problem Status W/U Status Risk Notes Problem History of right hip replacement ([id number] [id number]) Status post right hip replacement (Z96.641) Active confirmed Vital Signs Weight 236.2 lbs 11/10/2024 Blood pressure systolic 120 mm Hg 11/11/19 25 Blood pressure diastolic 70 mm Hg 025 Heart Rate 63 /min 11/10/2024 Height 73 in 11/10/2024 BMI 31.16 kg/m2 11/10/2024 Encounters Encounter Location Date Provider Diagnosis [facility] [address] [place] [address] [address] [facility] [address] [place] [id number] 11/10/2024 Burke Smith Type 2 diabetes mellitus without complication, without long-term current use of insulin E11.9 and Status post right hip replacement Z96.641 Assessments Encounter Date Diagnosis (ICD Code) Assessment Notes Treatment Notes Treatment Clinical Notes Section Notes 11/10/2024 Type 2 diabetes mellitus without complication, without long-term current use of insulin (ICD-10 - E11.9) 11/10/2024 Status post right hip replacement (ICD-10 - Z96.641) Plan Of Treatment Next Appt Details Provider Name:Burke Waller , 11/27/2024 03:30:00 PM, Lorenzo Vera [facility] 36 [facility] [address], [place], [phone], Provider Name:Burke Waller , 01/12/2025 10:45:00 AM, [place] [address], [place], [phone], Progress Notes * ARRON BROWNDOB:[birth year] (59 yo M)Acc No.[id number]:11/10/2024 Progress Notes Patient: ARRON JACKSON Provider: Burke Smith M.D. :1965 A ge:59 Y S ex:Male Date:11/10/2024 Address:[address] [place] [address] [id number] Subjective: * Chief Complaints: * 1 . 6 month checkup. 2. Needs colon cancer screening, diabetic eye exam, & shingles vaccine. * HPI: H PI: 59 year old male presents with c/o Patient is here today for?Pt is here today for a 6 month check up. Pt sts he is doing well and has no concerns at this time. Pt sts he did have his hip replaced and sts he is doing very well after the surgery and sts he no longer has a limp when walking. Pt sts he is very happy. * ROS: D ERMATOLOGY: no R ivory. [...] - dr Harding 09/2020, colonoscopy, Dr. Staton, [facility] , , [facility] 10/22/2024. * Hospitalization/Major Diagno stic Procedure: H ER [...] application Externally Twice a day , Taking Albuterol Sulfate HFA 108 (90 [...] A WEEK SUBCUTANEOUSLY Subcutaneous once a week , Taking Tamsulosin HCl 0.4 MG Capsule TAKE 1 CAPSULE BY MOUTH AT BEDTIME , Taking Atorvastatin Calcium 20 MG Tablet 1 tablet Orally Once a day , Taking Triamterene-HCTZ 37.5-25 MG Tablet 1 tab(s) Orally Once a day , Taking Neurontin 600 MG Tablet 1 tablet Orally Four times a day , Taking traZODone HCl 50 MG Tablet 1 tablet at bedtime as needed Orally Once a day , Medication List reviewed and reconciled with the patient * Allergies: N .K.D.A. Objective: * Vitals: W t: 236.2, Temp: 98.6, BP: 120/70, HR: 63, Nurse: [facility], Ht: 73, BMI:31.16. * Examination: G eneral Examination: General Appearance: N AD. H EENT: u nremarkable, TM's pink and suggest effusion. O ral cavity: n o lesions, mucosa moist and WNL, no erythema.?Neck: s upple, no lymphadenopathy. C hest: n ormal shape and expansion. H eart: R SR. L ungs: c lear to auscultation. N eurologic Exam: I ntact, gait normal.?Peripheral pulses: n ormal . B ack: n ontender . Assessment: * Assessment: 1. T ype 2 diabetes mellitus without complication, without long-term current use of insulin - E11.9 (Primary) 2 . S tatus post right hip replacement - Z96.641 Plan: * Treatment: Value Reference Range g lycohemoglobin 6.9% 5 - 6.5 % * Malena Monet 11/10/2024 12 :44:53 PM EDT > Provider reviewed results while patient in office. * Procedure Codes: 8 3036 GLYCATED HEMOGLOBIN TEST, Modifiers: QW , [address] CAPILLARY BLOOD DRAW, 1036F TOBACCO NON-USER, 3044F HG A1C LEVEL LT 7.0%, G8783 BP SCR PRFRM RCMDD DEFIND SCR INTVL, 3074F SYST BP LT 130 MM HG, 3078F DIAST BP < 80 MM HG * Images: Billing Information: * Visit Code: 29921 Office Visit, Est Pt., Level 3. * Procedure Codes: 59573 GLYCATED HEMOGLOBIN TEST. Modifiers: QW [address]4525 CAPILLARY BLOOD DRAW. 1036F TOBACCO NON-USER. 3044F HG A1C LEVEL LT 7.0%. G8783 BP SCR PRFRM RCMDD DEFIND SCR INTVL. 3074F SYST BP LT 130 MM HG. 3078F DIAST BP < 80 MM HG. * Electronic signature of Burke Smith MD on 11/26/2024 at 01:35 PM EDT Sign off status: Pending * Provider: Burke Smith M.D. Date: 11/10/2024 Generated for Cecilio fofana/Blake/Parisitting on: 11/26/2024 01:35 PM EDT History and Physical Notes * HPI (History of Present Illness) Category Sub-Category Detail Notes Category Not es HPI Patient is here today for Pt is here today for a 6 month check up. Pt sts he is doing well and has no concerns at this time. Pt sts he did have his hip replaced and sts he is doing very well after the surgery and sts he no longer has a limp when walking. Pt sts he is very happy Examination Category Sub-Category Detail Notes Category Not es General Examination HEENT: unremarkable , TM's pink and suggest effusion Heart: RSR Lungs: clear to auscultatio n General Appearance: NAD Skin: Neurologic Exam: Intact, gait normal Neck: supple, no lymphaden opathy Oral cavity: no lesions, mucosa m oist and WNL, no erythema Peripheral pulses: normal Back: nontender Chest: normal shape and exp ansion
--- OUTSIDE RECORDS SUMMARY | 2024-11-17 06:45 | XMS_ITS ---
Author Organization [facility] Address [address] [facility] [address] [place] [id number] Care Team Providers Care Aquaculture Farm Manager Name Role Phone Burke Smith Primary Care Provider [phone] Haley Hester [phone] REASON FOR VISIT depression Encounters Encounter Location Date Provider Diagnosis [facility] [address] [place] [id number] 11/17/2024 Haley Hester Plan Of Treatment Next Appt Details Provider Name:Burke Waller er, 11/27/2024 03:30:00 PM, [address], [place], [place], [id number], Provider Name:Burke Waller er, 01/12/2025 10:45:00 AM, [address], [address], [place], [place], [phone], Progress Notes * NAOMIARRON CAPPSDOB:[birth year] (59 yo M)Acc No.[id number]:11/17/2024 Progress Notes Patient: ARRON JACKSON Provider: FRANKIE Izquierdo :1965 A ge:59 Y S ex:Male Date:11/17/2024 Address:[address], [place] Pcp:Burke Smith Subjective: * Chief Complaints: * 1 . Depression. * Medical History: Objective: * Vitals: Assessment: Plan: * Treatment: * Images: Billing Information: * Visit Code: * Procedure Codes: * Electronic signature of Stephanie Hester APRN on 11/26/2024 at 01:36 PM EDT Sign off status: Pending * Provider: FRANKIE Izquierdo Date: 11/17/2024 Generated for Cecilio fofana/Blake/Ernesto on: 11/26/2024 01:36 PM EDT
--- OUTSIDE RECORDS SUMMARY | 2024-11-20 06:30 | XMS_ITS ---
Author Organization [facility] Address [address] [place] [id number] Care Team Providers Care Product Communications Manager Name Role Phone Burke Smith Primary Care Provider [phone] Hina Odell Unavailable [phone] Allergies No Known Allergies REASON FOR VISIT patient thinks he is depressed Medications Medication SIG (Take, Route, Frequency, Duration) Notes Start Date End Date Status Albuterol Sulfate HFA 108 (90 Base) MCG/ACT INHALE 2 PUFF(S) BY MOUTH EVERY 6 HOURS NEEDED; Duration: 25 Active Omeprazole 40 MG TAKE 1 CAPSULE BY [facility] ONCE DAILY; Duration: 30 Active Celecoxib [...] 03/06/2022 Active Mupirocin 2 % 1 application Duplicator Punch Set Up Operator ally Twice a day; Duration: 5 day(s) 05/12/2024 Active Problems Problem Type SNOMED Code ICD Code Onset Dates Problem Status W/U Status Risk Notes Problem Mixed anxiety and depressive disorder (360712402) Depression with anxiety (F41.8) Active confirmed Problem Psychophysiologi jean marie insomnia (F51.04) Active confirmed Vital Signs Weight 230.6 lbs 11/20/2024 Blood pressure systolic 130 mm Hg 11/21/19 25 Blood pressure diastolic 70 mm Hg 025 Heart Rate 98 /min 11/20/2024 Height 73 in 11/20/2024 BMI 30.42 kg/m2 11/20/2024 Encounters Encounter Location Date Provider Diagnosis [facility] [address] [facility] [address] [place] [address], [place] [id number] 11/20/2024 Hina Odell Depression with anxi ety [...] Follow Up: 1 Week, Reason: Provider Name:Burke Waller er, 11/27/2024 03:30:00 PM, [address], [address], [place], [id number], Provider Name:Burke Waller er, 01/12/2025 10:45:00 AM, [address], [address], [place], [id number], Progress Notes * ARRON BROWNDOB:[birth year] (59 yo M)Acc No.[id number]:11/20/2024 Progress Notes Patient: ARRON JACKSON Provider: MIA Benitez :1965 A ge:59 Y S ex:Male Date:11/20/2024 Address:[address] [place] [address] [id number] Pcp:Burke Smith Subjective: * Chief Complaints: * [...] 09/2020, colonoscopy, Dr. Staton, [facility] , , [facility] 10/22/2024. * Hospitalization/Major Diagno stic Procedure: [...] F51.04 Plan: * Treatment: * Procedure Codes: 3 6416 CAPILLARY BLOOD DRAW, 76477 CBC WITH AUTO DIFF * Follow Up: 1 Week * Images: Billing Information: * Visit Code: 52900 Office Visit, Est Pt., Level 3. * Procedure Codes: 18930 CAPILLARY BLOOD DRAW. 79478 CBC WITH AUTO DIFF. * Electronic signature of MIA Mccullough on 11/26/2024 at 01:36 PM EDT Sign off status: Pending * Provider: MIA Benitez Date: 11/20/2024 Generated for Cecilio fofana/Blake/eTransmitting on: 11/26/2024 01:36 PM EDT History and Physical Notes * [...]
--- OUTSIDE RECORDS SUMMARY | 2024-11-26 13:35 | XMS_ITS | Encounter Summary ---
Author Organization [facility] Address [address] [place] [address] Care Team Providers Care Duty Engineer Name Role Phone Dany Smith MD Primary Care Provider [phone] Encounter Details Date Type Department Care Team (Late st Contact Info) Description 02/05/2024 Orders Only External Location [address] [place] [address] Provider, External Social History Tobacco Use Types Packs/Day Years Used Date Smoking Tobacco: Former Sex and Gender Information Value Date Recorded Sex Assigned at Male 05/07/2024 4:07 PM EST Legal Sex Male 7:47 PM EDT Gender Identity Not on file Sexual Orientation Not on file documented as of this encounter Plan of Treatment Not on file documented as of this encounter Procedures Procedure Name Priority Date/Time Associated Diagnosis Comments XR OUTSIDE IMAGES 02/05/2024 2:19 PM EDT documented in this encounter Results * XR OUTSIDE IMAGES (02/05/2024 2:19 PM EDT) Anatomical Region Laterality Modality Radiographic Shagufta ging 02/05/2024 2:19 PM EDT us External Provider IMG XR PROCEDURES Final Result documented in this encounter Visit Diagnoses Not on filedocumented in this encounter Care Teams Duty Engineer Relationship Specialty Start Date End Date Dany Smith MD [address] [place] [address] PCP - General 05/07/24 documented as of this encounter
--- OUTSIDE RECORDS SUMMARY | 2024-11-26 13:35 | XMS_ITS | Clinical Summary ---
Author Organization [facility] Address [address] [place] [address] Care Team Providers Care Head Sampler Name Role Phone Dany Smith MD Primary Care Provider [phone] Allergies No known active allergies Medications gabapentin (Neurontin) 300 MG capsule Take 1 capsule (300 mg) by mouth 3 (three) times a day. 08/09/2023 Active metFORMIN (Glucophage) 500 MG tablet TAKE 1 TABLET BY MOUTH ONCE DAILY for 30 10/06/2019 Active Ozempic, 0.25 or 0.5 MG/DOSE, 2 MG/3ML solution pen-injector 1 (one) time per week. On Fridays Active atorvastatin (Lipitor) 20 MG tablet daily. 10/06/2019 Active celecoxib (CeleBREX) 200 MG capsule TAKE 1 CAPSULE BY MOUTH ONCE DAILY WITH FOOD for 30 Active HYDROCHLOROTHIA ZIDE PO Take by mouth 1 (one) time each day. 10/06/2019 Active Neurontin 600 MG tablet Take 1 tablet (600 mg) by mouth 3 (three) times a day. 02/21/2024 Active tamsulosin (Flomax) 0.4 MG 24 hr capsule TAKE 1 CAPSULE BY MOUTH AT BEDTIME for 30 10/06/2019 Active triamterene-hyd roCHLOROthiazid e (Dyazide) 37.5-25 MG capsule Take 1 capsule by mouth daily. Active traZODone (Desyrel) 50 MG tablet Take 1 tablet (50 mg) by mouth nightly. Active omeprazole (PriLOSEC) [address] capsule Take 1 capsule (40 mg) by mouth daily. Do not crush or chew. Active gabapentin (Neurontin) 600 MG tablet Take 1 tablet (600 mg) by mouth 4 (four) times a day as needed. Active Ascorbic Acid (vitamin C) 500 MG tablet Take 1 tablet (500 mg) by mouth daily. Active Multiple Vitamins-Minera ls (MULTIVITAMIN MEN 50+ PO) Take by mouth daily. Active ibuprofen 200 MG tablet Take 2 tablets (400 mg) by mouth every 6 hours as needed for mild pain. Active Active Problems Problem Noted Date Diagnosed Date Primary osteoarthritis of right hip 05/20/2024 Family History Medical History Relation Name Comments Conversions - Other Father Parents mesothelioma Father Conversions - Other Mother Parents Heart attack Mother Anesthesia problems Neg Hx Malig Hyperthermia Neg Hx Relation Name Status Comments Father Mother Social History Tobacco Use Types Packs/Day Years Used Date Smoking Tobacco: Former Cigarettes Smokeless Tobacco: Never Tobacco Cessation:Counseling Given: Not Answered Comments:Quit smoker 2014 Alcohol Use Standard Drinks/Week Comments Not Currently 0 (1 standard drink = 0.6 oz pur e alcohol) alcoholism, 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 Sex and Gender Information Value Date Recorded Sex Assigned at Male 05/07/2024 4:07 PM EST Legal Sex Male 7:47 PM EDT Gender Identity Not on file Sexual Orientation Not on file Last Filed Vital Signs Vital Sign Reading Time Taken Comments Blood Pressure 117/75 06/16/2024 1:18 PM EST Pulse 102 06/16/2024 1:18 PM EST Temperature 37.3 C (99.1 F) 06/16/2024 1:18 PM EST Respiratory Rate 16 06/16/2024 1:18 PM EST Oxygen Saturation 95% 06/16/2024 1:18 PM EST Inhaled Oxygen Concentration - - Weight 109 kg (241 lb 2.9 oz) 06/16/2024 1:18 PM EST Height 188 cm (6' 2 ) 06/16/2024 1:18 PM EST Body Mass Index 30.97 06/16/2024 1:18 PM EST Plan of Treatment Health Maintenance Due Date Last Done Comments [facility]-Depression Screening 1965 [facility]-HIV Screening 1965 [facility]-Hepatitis C Screening 1965 [facility]-/Child/Adol SDOH Screenings 1965 [facility]- SDOH Screenings 1981 [facility]-Adult SDOH Screenings 1981 CT Colonography 2008 Colonoscopy 2008 FIT-DNA 2008 FIT 2008 FOBT 2008 Sigmoidoscopy 2008 [facility]-Colorectal Cancer Screening 2008 [facility]-Zoster Vaccines (1 of 2) 2013 [facility]-Pneumococcal Vaccine: 50+ Years (2 of 2 - PCV) 08/22/2018 08/22/2017 [id number] Vaccine (3 - Moderna risk series) 09/22/2020 08/25/2020, 07/28/2020 [facility]-RSV Vaccine: 60+ Years or (1 - Risk 60-74 years 1-dose series) 2023 [facility]-Influenza Vaccine (#1) 12/29/202401/31, 02/04/2022, 02/20/2021, Additional history exists [facility]-DTaP,Tdap,and Td Vaccines (2 - Td or Tdap) 08/23/2027 08/22/2017 [facility]-Obesity Intervention Completed 05/20/2024 HPV Vaccines Aged Out No longer eligi ble based on patient's age to complete this topic [facility]-HIB Vaccines Aged Out No longer e ligible based on patient's age to complete this topic [facility]-Hepatitis A Vaccines Aged Out No longer eligible based on patient's age to complete this topic [facility]-IPV Vaccines Aged Out No longer e ligible based on patient's age to complete this topic [facility]-Rotavirus Vaccines Aged Out No lo nger eligible based on patient's age to complete this topic Insurance [facility] Care Teams Head Sampler Relationship Specialty Start Date End Date Dany Smith MD [address] [place] [address] PCP - General 05/07/24
--- OUTSIDE RECORDS SUMMARY | 2024-11-26 13:35 | XMS_ITS | Encounter Summary ---
Author Organization [facility] Address [address] [place] [address] Care Team Providers Care Watch Repairer Name Role Phone Dany Smith MD Primary Care Provider [phone] Reason for Referral * Consultation (Routine) - Closed Specialty Diagnoses / Procedures Referred By Ifrah phelan Referred To Contact Orthopaedic Surgery Diagnoses Primary osteoarthritis of right hip Alistair Rivas DO [address] [place] [address] Phone: tel: fax: Jose Ang MD [address] [address] Phone: tel: fax: Referral ID Status Reason Start Date Expiration Date Visits Re quested Visits Authorized [id number] Closed 05/06/2024 11/05/2025 1 1 Encounter Details Date Type Department Care Team (Latest Contact Info) Description 05/06/2024 Community [facility] [address] [place] [address] Alistair Rivas DO [address] [place] [address] Primary osteoarthritis of right hip (Primary Dx) Social History Tobacco Use Types Packs/Day Years Used Date Smoking Tobacco: Former Sex and Gender Information Value Date Recorded Sex Assigned at Male 05/07/2024 4:07 PM EST Legal Sex Male 7:47 PM EDT Gender Identity Not on file Sexual Orientation Not on file documented as of this encounter Plan of Treatment Scheduled Referrals Name Type Priority Associated Diagnoses Orde r Schedule Ambulatory referral to Orthopaedics Joint Reconstruction Outpatient Referral Routine Primary osteoarthritis of right hip Expected: 05/06/2024 (Approximate), Expires: 05/06/2025 documented as of this encounter Visit Diagnoses Diagnosis Primary osteoarthritis of right hip- Primary documented in this encounter Care Teams Watch Repairer Relationship Specialty Start Date End Date Dany Smith MD [address] [place] [address] PCP - General 05/07/24 documented as of this encounter
--- OUTSIDE RECORDS SUMMARY | 2024-11-26 13:36 | XMS_ITS | Encounter Summary ---
Author Organization [facility] Address [address] [place] [address] Care Team Providers Care Tax Agent Name Role Phone Dany Smith MD Primary Care Provider [phone] Encounter Details Date Type Department Care Team (Late st Contact Info) Description 10/03/2023 Orders Only External Location [address] [place] [address] Alistair Rivas DO [address] [place] [id number] Social History Tobacco Use Types Packs/Day Years [...] Date/Time Associated Diagnosis Comments XR OUTSIDE IMAGES 10/03/2023 12:00 AM EDT documented in this encounter Results * XR OUTSIDE IMAGES (10/03/2023 12:00 AM EDT) Anatomical Region Laterality Modality Radiographic Shagufta ging 10/03/2023 us Alistair Rivas DO IMG XR PROCEDURES Final Result documented in this encounter Visit Diagnoses Not on filedocumented in this encounter Care Teams Tax Agent Relationship Specialty Start Date End Date Dany Smith MD [address] [place] [address] [place] [address] PCP - General 05/07/24 documented as of this encounter
--- OUTSIDE RECORDS SUMMARY | 2024-11-26 13:36 | XMS_ITS | Patient Health Record ---
Author Organization [facility] Address [address] [place] [id number] Care Team Providers Care Maid Supervisor Name Role Phone Burke Smith Primary Care Provider Klaudia Potts Unavailable [phone] Suraj Wiseman Unavailable [phone] Haley Hester Unavailable [phone] Hina Odell Unavailable [phone] Allergies No Known Allergies Results Component Value [...] - 38 platlet 190 100 - 400 P-Comprehensive Metabolic Pa rob (CMP) Reviewed date:09/18/2024 12:35:55 PM Interpretation: Performing Lab: Notes/Report: Test performed by [facility], [place] [address] [place] [address] , [address], [place] [address] Colton Cruz MD, Physical Plant Manager CLIA: [id number] Sodium 141 135-145 mmol/L Potassium 4.2 3.5-5.3 [...] Interpretation: Performing Lab: Notes/Report: Test performed by [facility], [address] , [address], [place] [address] Colton Cruz MD, Physical Plant Manager CLIA: [id number] Cholesterol 178 <200 mg/dL Triglycerides 193 <150 [...] developed and its performance characteristics determined by [facility]. It has not been cleared or approved by the [place] Food and Drug Administration. This test was performed in a CLIA certified laboratory and is intended for clinical purposes. Performed By: [facility] [address] [place] [address] Physical Plant Manager: Anders Wooten MD, PhD CLIA Number: [id number] Cotinine, Serum/Plasma <5 CT SCAN : CHEST, LUNG CANCER SCREENING LOW DOSE Reviewed date:10/10/2024 11:27:07 AM Interpretation: Performing Lab: Notes/Report: Glycohemoglobin A1c (in hous e) Reviewed date:11/10/2024 02:31:57 PM Interpretation: Performing Lab: Notes/Report: glycohemoglobin 6.9% 5 - 6.5 % Glycohemoglobin A1c (in hous e) Reviewed date:09/18/2024 12:35:55 PM Interpretation:7.8% Performing Lab: Notes/Report: 7.8% glycohemoglobin 7.8% 5 - 6.5 % P-Culture, Wound Aerobic w/G debbie Stain Reviewed date:01/30/2024 04:09:19 PM Interpretation:No growth Performing Lab: Notes/Report: Test performed by [facility] [address] [place], [place] [address] [place] , [address], [place] [address] Colton Cruz MD, Physical Plant Manager CLIA: [id number] Specimen Source Elbow - left elbow Gram Stain See Below Rare Polymorphonuclear leukocytes No organisms seen Culture, Wound Aerobic w/Gram Stain See Below Preliminary Report : No growth, reincubate Final Report : No growth X ray : Elbow, left Reviewed date:01/22/2024 10:55:04 AM Interpretation:soft tissue swelling, mild degenerative changes Performing Lab: Notes/Report: soft tissue swelling, mild degenerative changes P-Uric Acid Reviewed date:01/22/2024 03:47:20 PM Interpretation:Normal Performing Lab: Notes/Report: Test performed by [facility] [address] [place], [place] [address] [address], [address], [place] [address] Colton Cruz MD, Physical Plant Manager CLIA: [id number] Uric Acid 8.0 3.4-8.0 mg/dL P-Sed Rate (ESR) Reviewed date:01/22/2024 03:47:32 PM Interpretation:21 Performing Lab: Notes/Report: Test performed by [facility] [address] [place] [address] , [address], [place] [address] Colton Cruz MD, Physical Plant Manager CLIA: [id number] Erythrocyte Sedimentation Rate (ESR), Automated 21 <21 mm/hr CBC Venipuncture (in house) Reviewed date:01/18/2024 12:14:54 AM Interpretation: Performing Lab: Notes/Report: wbc 9.3 3.5 - 10 lymph 11.8 15 - 50 mid 3.6 2 - 15 gran 84.6 35 - 80 rbc 4.21 3.5 - 5.5 hgb 12.7 11.5 - 16.5 hct 37.9 35 - 55 mcv 89.9 75 - 100 mch 30.2 25 - 35 mchc 33.6 31 - 38 platlet 159 100 - 400 Glycohemoglobin A1c (in hous e) Reviewed date:05/12/2024 12:08:40 PM Interpretation: Performing Lab: Notes/Report: glycohemoglobin 6.9% 5 - 6.5 % P-Comprehensive Metabolic Pa rob (CMP) Reviewed date:05/14/2024 08:42:20 AM Interpretation:gluc 188, bun 27 Performing Lab: Notes/Report: Test performed by [facility] [address] [place] [address] , [place] [address] Colton Cruz MD, Physical Plant Manager CLIA: [id number] Sodium 138 135-145 mmol/L Potassium 4.1 3.5-5.3 mmol/L Chloride 102 97-108 mmol/L CO2 26 22-32 mmol/L Glucose 188 65-99 mg/dL BUN 27 8-23 mg/dL Creatinine 1.10 0.70-1.30 mg/dL Calcium 10.1 8.6-10.4 mg/dL eGFR by Creatinine 76 >59 mL/min/1.73m2 Protein 6.6 6.0-8.3 g/dL Albumin 4.3 3.5-5.3 g/dL Alkaline Phosphatase 73 40-129 IU/L ALT (SGPT) 12 <5-55 IU/L AST (SGOT) 12 <5-46 IU/L Bilirubin, Total 0.4 <0.2-1.2 mg/dL A/G Ratio 1.9 1.1-2.5 P-Lipid Panel Reviewed date:05/14/2024 08:42:20 AM Interpretation:hdl 37, chol/hdl 5.05, non-hdl 150, ldl/hdl 3.3 Performing Lab: Notes/Report: Test performed by [facility] [place] [address] [place] [address] , [address], [place] [address] Colton Cruz MD, Physical Plant Manager CLIA: [id number] Cholesterol 187 <200 mg/dL Triglycerides 141 <150 mg/dL HDL Cholesterol 37 >39 mg/dL Cholesterol / HDL Ratio 5.05 0.00-4.99 Ratio Non-HDL Cholesterol 150 <130 mg/dL LDL Cholesterol (Calculation) 122 <130 mg/dL LDL Cholesterol Levels* Less than 100 mg/dL Optimal 100 to 129 mg/dL Near Optimal/ Above Optimal 130 to 159 mg/dL Borderline High 160 to 189 mg/dL High 190 mg/dL and above Very High * Categories as recommended by the 2004 ATPIII guidelines LDL/HDL Ratio 3.3 <3.3 Ratio LDL Cholesterol Patient History Test Date: 10/18/2022 LDL Results: SEE COMMENT Units: mg/dL % Change: - Test Date: 05/12/2024 LDL Results: 122 Units: mg/dL % Change: - P-PSA Reviewed date:05/14/2024 08:42:20 AM Interpretation: Normal Performing Lab: Notes/Report: Test performed by [facility] [address] [place] [address] , [address], [place] [id number] Colton Cruz MD, Physical Plant Manager CLIA: [id number] PSA 0.32 <4.00 ng/mL Please note this is an ultrasensitive PSA assay with a lower limit of detection of 0.014 ng/mL. This test is performed by the [employer] ECLIA methodology. Values obtained with different assay methods or kits cannot be directly compared. P-Microalbumin/Creatinine, R andom Urine Sample Reviewed date:05/14/2024 08:42:20 AM Interpretation: Normal Performing Lab: Notes/Report: Test performed by [facility] [address] [place] [address] , [address], [place] [address] Colton Cruz MD, Physical Plant Manager CLIA: [id number] Albumin/Creatinine Ratio, Urine 6 0-30 ug/mg Microalbumin, Urine, Random 0.7 Creatinine, Urine 112.6 Reason For Referral Diagnosis 1 Coronary artery calc ification (I25.10) Referral Organization [facility] Referring Provider First Name Hina Referring Provider Last Name Jose R Referring Provider Speciality Physician Plant Health Manager Referred Provider Specialty Cardiovascul ar Disease General Notes Kailey Temple 2024 08:43:10 AM > faxed to [facility] Cardiology Referral Priority Routine Medications Medication SIG (Take, Route, Frequency, Duration) Notes Start Date End Date Status Zoloft 100 MG 1/2 tab x 2 weeks th en increase to 1 tab daily Orally Once a day; Duration: 30 days 11/20/2024 Active Neurontin 600 MG 1 tablet Orally Four times a day; Duration: 30 days 10/17/2024 Active hydrOXYzine HCl 25 MG 1 tab Orally 4 consuelo es a day, prn 11/20/2024 Active Atorvastatin Calcium 20 MG 1 tablet Orally Once a day; Duration: 90 days Active Triamterene-HCTZ 37.5-25 MG 1 tab(s) Orally Once a day; Duration: 90 days Active Albuterol Sulfate HFA 108 (90 Base) MCG/ACT INHALE 2 PUFF(S) BY MOUTH EVERY 6 HOURS NEEDED; Duration: 25 Active Omeprazole 40 MG TAKE 1 CAPSULE BY MO UT ONCE DAILY; Duration: 30 Active Celecoxib 200 MG 1 capsule Orally Onc e a day; Duration: 30 days Active Ozempic (1 MG/DOSE) 4 MG/3ML INJECT 1 MG ONCE A WEEK SUBCUTANEOUSLY Subcutaneous once a week Active Tamsulosin HCl 0.4 MG TAKE 1 CAPSULE BY MOUTH AT BEDTIME; Duration: 30 Active Fluticasone Propionate 50 MCG/ACT as directed in each nostril once a day; Duration: 30 day(s) 03/06/2022 Active metFORMIN HCl 500 MG 1 tablet with a fartun l Orally Once a day; Duration: 30 days Active Mupirocin 2 % 1 application Prop Setter ally Twice a day; Duration: 5 day(s) 05/12/2024 Active Immunizations Vaccine Route Administration Date Status Comme nts Tetanus Tdap-Adacel (over 7yrs) IM Intramuscular 08/22/2017 Administered PNEUMOVAX 23 VACCINE IM Intramuscular 08/22/2017 Administe red Fluzone Quad (6months&older) IM Intramuscular 02/07/2018 Administered Fluzone Quad (6months&older) IM Intramuscular 02/24/2019 Administered Fluzone PF Quad (6-35 months) Unknown 02/20/2021 Administered Fluzone PF Quad (6-35 months) Unknown 02/04/2022 Administered Fluzone PF Quad (6-35 months) Unknown 01/31/2023 Administered COVID 19 Moderna Unknown 07/28/2020 Administered COVID 19 Moderna Unknown 08/25/2020 Administered Problems Problem Type SNOMED Code ICD Code Onset Dates Problem Status W/U Status Risk Notes Problem Weight gain (812312329) Weight gain (R63.5) Active confirmed Problem Hypokalemia (75743900) Hypokalemia (E87.6) Active confirmed Problem Essential hypertension (18909735) Essential hypertension (I10) Active confirmed Problem Osteoarthritis of knee (831463501) DJD (degenerative joint disease) of knee (M17.9) Active confirmed Problem Cervical radiculopathy (88510076) Cervical radiculopathy (M54.12) Active confirmed Problem Mixed anxiety and depressive disorder (098465951) Depression with anxiety (F41.8) Active confirmed Problem BMI 30+ - obesity (679575926) BMI 32.0-32.9,adult (Z68.32) Active confirmed Problem Acute constipation (639058650) Acute constipation (K59.00) Active confirmed Problem Acute exacerbation of chronic obstructive airways disease (609806694) COPD exacerbation (J44.1) Active confirmed Problem Actinic keratosis (603956) Actinic keratosis (L57.0) Active confirmed Problem Mixed hyperlipidemia (229949702) Mixed hyperlipidemia (E78.2) Active confirmed Problem Primary insomnia (9496067) Primary insomnia (F51.01) Active confirmed Problem Osteoarthritis of hip (254113383) Osteoarthritis of hip, unspecified (M16.9) Active confirmed Problem Degeneration of cervical intervertebral disc (34084708) Degenerative disc disease, cervical (M50.30) Active confirmed Problem Disorder of prostate (94267163) Benign prostatic disease (N42.9) Active confirmed Problem Reactive depression (situational) (16351262) Situational depression (F43.21) Active confirmed Problem Chronic fatigue syndrome (22780085) Chronic fatigue (R53.82) Active confirmed Problem COPD - Chronic obstructive pulmonary disease (29150356) Chronic obstructive pulmonary disease, unspecified COPD type (J44.9) Active confirmed Problem Insomnia disorder related to another mental disorder (73203191) Psychophysiological insomnia (F51.04) Active confirmed Problem Carpal tunnel syndrome of left wrist (088840384311885) Carpal tunnel syndrome of left wrist (G56.02) Active confirmed Problem Dyslipidemia (341316377) Dyslipidemia (E78.5) Active confirmed Problem Low back pain (278881381) Acute left-sided low back pain without sciatica (M54.5) Active confirmed Problem Type II diabetes mellitus without complication (141656225) Type 2 diabetes mellitus without complication, without long-term current use of insulin (E11.9) Active confirmed Problem Pain in right sacroiliac joint (7875075027689531 7) Pain of right sacroiliac joint (M53.3) Active confirmed Problem Atrophic gastritis (56016662) Chronic gastritis without bleeding, unspecified gastritis type (K29.50) Active confirmed Problem Benign prostatic hypertrophy without outflow obstruction (056241406) Benign prostatic hyperplasia without lower urinary tract symptoms (N40.0) Active confirmed Problem History of right hip replacement (8604763168414780 ) Status post right hip replacement (Z96.641) Active confirmed Problem Anxiety depression (632752370) Anxiety with depression (F41.8) Active confirmed Problem Arthritis of right hip (0765220906707789 ) Arthritis of right hip (M16.11) Active confirmed Problem Osteoarthritis of knee (885615903) Arthropathy of knee (M17.10) Active confirmed Problem Allergic rhinitis (10670661) Allergic rhinitis, unspecified seasonality, unspecified trigger (J30.9) Active confirmed Problem Neck sprain (163267214) Neck sprain, initial encounter (S13.9XXA) Active confirmed Problem Chronic alcoholism in remission (917585351) Alcoholism in remission (F10.21) Active confirmed Problem Atherosclerotic heart disease of [place] coronary artery without angina pectoris (304440793736547) Coronary artery calcification (I25.10) Active confirmed Vital Signs Heart Rate 98 /min 11/20/2024 Blood pressure diastolic 70 mm Hg 11/20/2024 Height 73 in 11/20/2024 Blood pressure systolic 130 mm Hg 11/20/2024 Weight 230.6 lbs 11/20/2024 BMI 30.42 kg/m2 11/20/2024 Encounters Encounter Location Date Provider Diagnosis [facility] [address] [place], [place] [id number] 01/17/2024 Hina Crowdy Cellulitis of left e lbow L03.114 and Left elbow pain M25.522 [facility] [address] [place], [place] [id number] 01/18/2024 Suraj Cecil Left arm cellulitis L03.114 and Pain in left arm M79.602 [facility] [address] [place], [place] [id number] 01/24/2024 Burke Smith Olecranon bursitis o f left elbow M70.22 [facility] [address] [place], [place] [id number] 02/04/2024 Haley Hester [facility] L03.114 [facility] [address] [place] [id number] 05/12/2024 Burke Smith Type 2 diabetes sae itus without complication, without long-term current use of insulin E11.9 ; Benign prostatic disease N42.9 ; Essential hypertension I10 ; Alcoholism in remission F10.21 ; Arthritis of right hip M16.11 ; History of tobacco use Z87.891 ; Scalp abscess L02.811 and Mixed hyperlipidemia E78.2 [facility] 1210 [facility] [address] [place], [place] [id number] 07/18/2024 Burke Smith DJD (degenerative adolph int disease) of knee M17.9 [facility] [address] [place], [place] [id number] 08/12/2024 R Gopi Potts Tobacco use disorder Z72.0 and Osteoarthritis of hip, unspecified M16.9 [facility] [address] [place], [place] [id number] 09/10/2024 Hina Odell Osteoarthritis of hi p, unspecified M16.9 ; Type 2 diabetes mellitus without complication, without long-term current use of insulin E11.9 ; Essential hypertension I10 ; Mixed hyperlipidemia E78.2 ; Anxiety with depression F41.8 ; Chronic obstructive pulmonary disease, unspecified COPD type J44.9 ; Tobacco use disorder Z72.0 ; Primary insomnia F51.01 and BMI 32.0-32.9,adult Z68.32 [facility] [address] [place], [place] [id number] 11/10/2024 Burke Smith Type 2 diabetes sae itus without complication, without long-term current use of insulin E11.9 and Status post right hip replacement Z96.641 [place] [address] [address] [place], [place] [id number] 11/20/2024 Hina Odell Depression with anxi ety F41.8 and Psychophysiological insomnia F51.04 [facility] [address] [place] [id number] 11/25/2024 Burke Smith [facility] [address] [place], [place] [id number] 12/18/2023 J Damon Smith [facility] [address] [place], [place] [id number] 01/22/2024 Hina Odell [facility] [address] [place] [id number] 02/05/2024 J Damon Smith [facility] [address] [place], [place] [id number] 02/20/2024 J Damon Smith Degenerative disc di sease, cervical M50.30 [facility] [address] [place], [place] [id number] 02/20/2024 J Damon Smith [facility] [address] [place] [id number] 03/19/2024 J Damon Smith [facility] [address] [place] [id number] 05/09/2024 J Damon Smith [facility] [address] [place], [place] [id number] 05/14/2024 J Damon Smith [facility] [address] [place] [id number] 06/19/2024 J Damon Smith Degenerative disc di sease, cervical M50.30 [facility] [address] [place], [place] [id number] 07/14/2024 J Damon Smith [facility] [address] [place] [id number] 07/28/2024 J Damon Smith [facility] [address] [place] [id number] 08/25/2024 J Damon Smith [facility] [address] [place] [id number] 09/15/2024 Hina Odell [facility] [address] [place] [id number] 09/18/2024 Hinachris Odell [facility] [address] [place], [place] [id number] 10/10/2024 Hina Odell [facility] [address] [place], [place] [id number] 10/14/2024 Burke Smith Degenerative disc di sease, cervical M50.30 [facility] [address] [place], [place] [id number] 10/17/2024 Burke Smith Primary insomnia F51 .01 Assessments Encounter Date Diagnosis (ICD Code) Assessment Notes Treatment Notes Treatment Clinical Notes Section Notes 01/17/2024 Left elbow pain (ICD -10 - M25.522) 01/17/2024 Cellulitis of left elbow (ICD-10 - L03.114) CBC has a left shift and patient is running a LGF. The areas of redness were marked on his arm. He will start on abx, get an x-ray, and refrain from working tomorrow and f/u with Dr. Wiseman. 01/18/2024 Pain in left arm (ICD-10 - M79.602) 01/18/2024 Left arm cellulitis (ICD-10 - L03.114) 01/24/2024 Olecranon bursitis o f left elbow (ICD-10 - M70.22) 02/04/2024 Left arm cellulitis (ICD-10 - L03.114) Uric Acid noted to be 8; pt's elbow also assessed by Dr. Smith; suggessted to wear soft restraint with padding on the elbow 02/20/2024 Degenerative disc disease, cervical (ICD-10 - M50.30) 05/12/2024 Benign prostatic disease (ICD-10 - N42.9) 05/12/2024 Type 2 diabetes mellitus without complication, without long-term current use of insulin (ICD-10 - E11.9) 06/19/2024 Degenerative disc disease, cervical (ICD-10 - M50.30) 07/18/2024 DJD (degenerative adolph int disease) of knee (ICD-10 - M17.9) 08/12/2024 Tobacco use disorder (ICD-10 - Z72.0) He agrees to discontinue vaping. He feels he can do this on his own and does not want medication. He will return in 1 month for blood work to check his nicotine level. 08/12/2024 Osteoarthritis of hi p, unspecified (ICD-10 - M16.9) 09/10/2024 Osteoarthritis of hi p, unspecified (ICD-10 - M16.9) 09/10/2024 Type 2 diabetes mellitus without complication, without long-term current use of insulin (ICD-10 - E11.9) 10/14/2024 Degenerative disc disease, cervical (ICD-10 - M50.30) 10/17/2024 Primary insomnia (ICD-10 - F51.01) 11/10/2024 Type 2 diabetes mellitus without complication, without long-term current use of insulin (ICD-10 - E11.9) 11/10/2024 Status post right hi p replacement (ICD-10 - Z96.641) 11/20/2024 Depression with anxi ety (ICD-10 - F41.8) Patient will start on 1/2 tab daily x 2 weeks and then increase to a whole tab daily. Will stop the trazodone and try hydroxyzine. 11/20/2024 Psychophysiological insomnia (ICD-10 - F51.04) 09/10/2024 Essential hypertensi on (ICD-10 - I10) 05/12/2024 Essential hypertensi on (ICD-10 - I10) 05/12/2024 Alcoholism in remiss ion (ICD-10 - F10.21) 09/10/2024 Mixed hyperlipidemia (ICD-10 - E78.2) 09/10/2024 Anxiety with depress ion (ICD-10 - F41.8) 05/12/2024 Arthritis of right h ip (ICD-10 - M16.11) 05/12/2024 History of tobacco u se (ICD-10 - Z87.891) 09/10/2024 Chronic obstructive pulmonary disease, unspecified COPD type (ICD-10 - J44.9) 05/12/2024 Scalp abscess (ICD-1 0 - L02.811) 09/10/2024 Tobacco use disorder (ICD-10 - Z72.0) He has been off of nicotine for 30 days. Will check a level today. 09/10/2024 Primary insomnia (ICD-10 - F51.01) 09/10/2024 BMI 32.0-32.9,adult (ICD-10 - Z68.32) 05/12/2024 Mixed hyperlipidemia (ICD-10 - E78.2) Plan Of Treatment Pending Test Test Name Order Date Cologuard 03/06/2022 Next Appt Details Provider Name:Burke De Leon er, 11/27/2024 03:30:00 PM, [address], [address], [place], [id number], Provider Name:Burke Jose [facility] er, 01/12/2025 10:45:00 AM, [address], [address], [place], [id number], Insurance Providers Payer Name Payer Address Payer Phone Subscriber Number Group Number Insured Name Patient Relationship to Insured Coverage Start Date Coverage End Date [facility] [address] [place], [place] [id number] ARRON SALGADO Self - patient is the insured Medications Administered Medication Instructions Date of Administration Dosage Notes Depo- Medrol 40 mg/ml 11/03/2022 1.5 mL Medical (General) History Medical History History ICD Code recovering alcoholic and addict degenerative disc disease of the cervica l spine, diffuse Type 2 Diabetes mellitus COVID 19 vaccine, Jun/July 2020, Modern a 7mm renal stone right, with lithotripsy and removal, Dr. Harding Flu shot 2021 Surgical History Surgery Date(Month/Year) bone fusion in lower back left knee surgery nasal surgery kidney stone - dr Harding 09/2020 colonoscopy, Dr. Staton, [facility] , [facility] 10/22/2024 Hospitalization History Reason Date(Month/Year) [facility] ER Right hand/arm red, swollen, and infected 09/26/2019
--- OUTSIDE RECORDS SUMMARY | 2024-11-26 13:36 | XMS_ITS | Encounter Summary ---
Author Organization Healthcare Address [address] [place] [address] Care Team Providers Care Abalone Fisherman Name Role Phone Dany Smith MD Primary Care Provider [phone] Encounter Details Date Type Department Care Team (Late st Contact Info) Description 09/06/2023 Orders Only External Location [address] [place] [address] Provider, External Social History Tobacco Use Types [...] Date/Time Associated Diagnosis Comments XR OUTSIDE IMAGES 09/06/2023 2:48 PM EDT documented in this encounter Results * XR OUTSIDE IMAGES (09/06/2023 2:48 PM EDT) Anatomical Region Laterality Modality Radiographic Shagufta ging 09/06/2023 2:48 PM EDT External Provider IMG XR PROCEDURES Final Result documented in this encounter Visit Diagnoses Not on filedocumented in this encounter Care Teams Abalone Fisherman Relationship Specialty Start Date End Date Dany Smith MD [address] [place] [address] PCP - General 05/07/24 documented as of this encounter
--- NOTE | 2024-11-26 13:45 | CA_ITS ---
APPROVED REPORT EXAM: Comprehensive 2D, Doppler, and color-flow Echocardiogram Pediatric Orthodontist: Mayra Mcdowell RT(R) Ht: 6 ft 2 in Wt: 233lbs BSA: 2.32 BP: 127/77 mmHg Indications: Shortness of air 2D Dimensions LVEF (Hernandez's) 62.70 % M: 52 - 72 LV Volume 99.30 mL M: 62 - 150 LV Volume Index 42.8 mL/m2 M: 34 - 74 LA Volume 38.00 mL LA Volume Index 16.38 mL/m2 (M/F) 16-34 EF AP4 63.20 % EF AP2 62.2 % EF BP 62.7 % GL Strain -14.8 % M-Mode Dimensions RVDd 3.46 cm (0.9-2.6) LA Diam 4.57 cm (1.9-4.0) LVDd 3.28 cm (3.5-5.7) LVDs 2.11 cm (3.5-5.7) IVSd 0.84 cm (0.6-1.1) PWd 0.98 cm (0.6-1.1) EF (Teich) 66.40% FS 35.70% EDV (Teich) 43.50 mL ESV (Teich) 14.60 mL LV Diastology E Decel Time 227 (160-240 msec) E/A Ratio 0.7 Mitral Valve MV E Max Jagdeep. 72.0 (40-130 cm/s) MV A Velocity 109.0 (40-130 cm/s) E/A Ratio 0.66 MV PHT 66.0 ms Tricuspid Valve TR P. Velocity 260.00 cm/s Left Ventricle The left ventricle is normal size. Left ventricular systolic function is normal. The left ventricular ejection fraction is within the normal range. There is increased left ventricular wall thickness. There is normal LV segmental wall motion. Transmitral Doppler flow pattern suggests impaired LV relaxation. LVEF is 60%. Right Ventricle The right ventricle is normal size. The right ventricular systolic function is normal. Atria The left atrium size is normal. The right atrium size is normal. There is no color Doppler evidence of interatrial shunt. Aortic Valve The aortic valve is mildly thickened. There is no hemodynamically significant aortic valvular stenosis. No aortic regurgitation is present. Mitral Valve The mitral valve is normal in structure. No evidence of mitral valve stenosis. Trace mitral regurgitation is present. Tricuspid Valve The tricuspid valve leaflets are thin and pliable. Mild tricuspid regurgitation. RVSP is 25-30 mmHg. Pulmonic Valve The pulmonary valve is grossly normal in structure. Trace pulmonic valve regurgitation is present. Great Vessels The aortic root is normal in size. The ascending aorta is mildly dilated, measuring 3.9 cm in diameter. IVC is normal in size and collapses >50% with inspiration. Pericardium There is no pericardial effusion. Other Information Study Quality: Fair Conclusion Normal biventricular systolic function. Mild TR. Ascending aorta is mildly dilated, measuring 3.9 cm in diameter. Correlation with new or recent CTA chest is suggested. Electronically signed by : Eileen Lam MD 11/27/2024 11:46:07
== END 2024-11-26 23:59 | disposition home or self-care (01) ==
LOC: RT 13:32
PROVIDERS: PCP Family Medicine; Visit Provider Nurse Practitioner Family
DX: I07.1 Rheumatic tricuspid insufficiency (principal); I77.810 Thoracic aortic ectasia; I25.10 Atherosclerotic heart disease of native coronary artery without angina pectoris; R94.31 Abnormal electrocardiogram [ECG] [EKG]
CPT/HCPCS: 93306

== ENCOUNTER 2024-11-27 09:44 | Outpatient (CLI) | payer OTHER, SELFPAY ==
--- OUTSIDE RECORDS SUMMARY | 2024-10-16 10:42 | XMS_ITS | Encounter Summary ---
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 (08/28/2024) Alcohol Use Standard Drinks/Week Comments Not Asked 0 (1 standard drink = 0.6 oz pur e alcohol) not now Sex and Gender Information Value Date Recorded Sex Assigned at Not on file Legal Sex Male 1:46 PM CDT Gender Identity Not on file Sexual Orientation Not on file documented as of this encounter Last Filed Vital Signs Vital Sign Reading Time Taken Comments Blood Pressure 151/87 10/16/2024 10:58 AM EDT Pulse 82 10/16/2024 10:58 AM EDT Temperature 36.8 C (98.3 F) 10/16/2024 10:58 AM EDT Respiratory Rate 20 10/16/2024 10:58 AM EDT Oxygen Saturation 97% 10/16/2024 10:58 AM EDT Inhaled Oxygen Concentration - - Weight 108 kg (238 lb) 10/16/2024 10:58 AM EDT Height 188 cm (6' 2 ) 10/16/2024 10:58 AM EDT Body Mass Index 30.56 10/16/2024 10:58 AM EDT documented in this encounter Medications at Time of Discharge albuterol 90 mcg/actuation inhaler Inhale 2 puffs by mouth every 6 (six) hours as needed for shortness of breath. atorvastatin (LIPITOR) 20 MG tablet Take 1 tablet (20 mg total) by mouth daily. celecoxib (CeleBREX) 200 MG capsule Take 1 capsule (200 mg total) by mouth daily. gabapentin (NEURONTIN) 600 MG tablet Take 1 tablet (600 mg total) by mouth 3 (three) times daily. ibuprofen (MOTRIN) 200 MG tablet Take 1 tablet (200 mg total) by mouth every 6 (six) hours as needed for pain. metFORMIN (GLUCOPHAGE) 500 MG tablet Take 1 tablet (500 mg total) by mouth daily. mupirocin (BACTROBAN) 2 % ointment Apply 1 Application topically 3 (three) times daily. naproxen (NAPROSYN) 220 MG tablet Take 1 tablet (220 mg total) by mouth 2 (two) times daily with breakfast and dinner. omeprazole (PriLOSEC) 40 MG capsule Take 1 capsule (40 mg total) by mouth daily. Ozempic 1 mg/dose (4 mg/3 mL) pnij Inject 4 mg as directed once a week. tamsulosin (FLOMAX) 0.4 mg cap 24 hr capsule Take 1 capsule (0.4 mg total) by mouth daily. traZODone (DESYREL) 50 MG tablet Take 1 tablet (50 mg total) by mouth nightly. triamterene-hydr oCHLOROthiazide (MAXZIDE-25) 37.5-25 mg per tablet Take 1 tablet by mouth daily. documented as of this encounter H&P Notes * Rebecca Vazquez PA-C - 10/16/2024 11:00 AM EDT History of Present Illness History Of Present Illness Anson Brown is a pleasant 59 y.o. male presenting for preoperative clearance for Procedure Laterality Anesthesia RIGHT TOTALHIP ARTHROPLASTY, DIRECT ANTERIOR APPROACH Right General in setting of severe DJD. This has been ongoing for years but is getting progressively worse. Pain described as severe , sharp, stabs, unstable. Patient has failed conservative/nonoperative therapy therapy including: injections, nsaids. They have not fallen. They have not required the use of an assistive device. It is now to the point that it is affecting activities their of daily living and overall quality of life. The patient was evaluated by Dr. Aragon and was offered above and agreed to the procedure. Past Medical History Pertinent Positives: He has a past medical history of Arthritis, Diabetes mellitus (HCC), Enlarged prostate, Former cigarette smoker, GERD (gastroesophageal reflux disease), High cholesterol, Historyof alcohol abuse, History of bacterial meningitis in childhood, History of kidney stones, History of nicotine vaping, Hypertension, Insomnia, and Neuropathy. Pertinent Negatives: History of VTE, PE, malignant hyperthermia, or complications associated with general anesthesia. Surgical History He has a past surgical history that includes Colonoscopy; Lumbar fusion; Spinal cord stimulator implant; and Kidney stone surgery. Social History He reports that he has quit smoking. His smoking use included cigarettes. He does not have any smokeless tobacco history on file. No history on file for alcohol use and drug use. Family History Mom , questionable cardiac issues Dad , mesothelioma positive for right hip pain Denies family history of sudden cardiac arrest, CAD under age 50 in men, 55 in women. Denies familyhistory of coagulopathies. Allergies Patient has no known allergies. Medications Current Outpatient Medications Medication Instructions albuterol 90 mcg/actuation inhaler 2 puffs, inhalation, Every 6 hours PRN atorvastatin (LIPITOR) 20 mg, oral, Daily celecoxib (CELEBREX) 200 mg, oral, Daily gabapentin (NEURONTIN) 600 mg, oral, 3 times daily ibuprofen (MOTRIN) 200 mg, oral, Every 6 hours PRN metFORMIN (GLUCOPHAGE) 500 mg, oral, Daily mupirocin (BACTROBAN) 2 % ointment 1 Application, topical, 3 times daily naproxen (NAPROSYN) 220 mg, oral, 2 times daily with breakfast and dinner omeprazole (PRILOSEC) 40 mg, oral, Daily Ozempic 4 mg, injection, Weekly tamsulosin (FLOMAX) 0.4 mg, oral, Daily traZODone (DESYREL) 50 mg, oral, Every Night triamterene-hydroCHLOROthiazide (MAXZIDE-25) 37.5-25 mg per tablet 1 tablet, oral, Daily Review of Systems Endorses Denies chest pain, palpitations, or SOB. METS >4. Denies headaches, dizziness, and falls. Denies cough, Denies fever. Denies NVD. Denies easy bleeding or bruising. Denies recent illnesses. Denies sick contacts. Comprehensive ROS is otherwise negative. Vitals Blood pressure (!) 151/87, pulse 82, temperature 98.3 ??F (36.8 ??C), temperature source Temporal Artery, resp. rate 20, height 1.88 m (6' 2 ), weight 108 kg (238 lb), SpO2 97%. Physical Exam Physical Exam Constitutional: He is oriented to person, place, and time. He is positive for obesity. HENT: Head: Normocephalic. Nose: Nose normal. Mouth/Throat: Mucous membranes are moist. Eyes: Conjunctivae are normal. Cardiovascular: Normal rate and regular rhythm. No murmur heard. Pulmonary/Chest: Effort normal and breath sounds normal. Abdominal: Normal appearance. Musculoskeletal: Comments: Limping gait, walks slow Neurological: He is alert and oriented to person, place, and time. Psychiatric: His behavior is normal. Mood normal. Nursing note and vitals reviewed. Laboratory and Diagnostics Diagnostic Results Results for orders placed or performed during the hospital encounter of 10/16/24 MRSA Screen Specimen: Nares; Nasal Result Value Ref Range MRSA by PCR [facility] MRSA Detected by PCR (A) MRSA Not Detected by PCR aPTT Result Value Ref Range aPTT 25.0 22.0 - 32.0 seconds CBC with automated diff Result Value Ref Range WBC 6.3 3.9 - 10.0 K/??L RBC 4.43 (L) 4.63 - 6.08 M/??L Hemoglobin 12.9 11.2 - 15.7 GM/DL Hematocrit 39.1 (L) 40.1 - 51.0 % MCV 88 79 - 95 fL MCH 29.1 25.6 - 32.2 pg MCHC 33.0 32.3 - 36.5 GM/DL RDW 13.8 11.6 - 14.4 % Platelets 163 163 - 369 K/CU MM MPV 12.3 9.4 - 12.4 fL % Neutros 58 34 - 68 % % Lymphs 24 19 - 53 % % Monos 9 4 - 13 % % Eos 7 1 - 7 % % Baso 2 (H) 0 - 1 % # Neutros 3.66 1.56 - 6.13 K/??L # Lymphs 1.54 1.18 - 3.74 K/??L # Monos 0.57 0.24 - 0.82 K/??L # Eos 0.45 0.04 - 0.54 K/??L # Baso 0.10 (H) 0.01 - 0.08 K/??L Immature Granulocytes-Relative 0.20 0.00 - 0.60 % # IG 0.01 0.00 - 0.05 K/uL Comprehensive metabolic panel Result Value Ref Range Sodium 139 136 - 146 meq/L Potassium 4.1 3.5 - 5.1 meq/L Chloride 108 102 - 112 meq/L CO2 27 21 - 32 meq/L Calcium 10.1 8.5 - 10.1 mg/dL Glucose 144 (H) 74 - 106 mg/dL BUN 26 (H) 7 - 22 mg/dL Creatinine 1.12 0.70 - 1.30 mg/dL BUN/Creatinine 23 (H) 8 - 20 Albumin 4.1 3.4 - 5.0 g/dL Alkaline Phosphatase 85 27 - 136 U/L ALT 27 12 - 78 U/L AST 11 5 - 37 U/L Total Bilirubin 0.4 0.2 - 1.3 mg/dL Protein, Total 7.5 6.4 - 8.2 gm/dL Anion Gap 8 (L) 9 - 20 A/G Ratio 1.2 1.1 - 2.5 Globulin 3.4 1.5 - 4.5 g/dL Osmolality Calc 284.8 mOsm/kg eGFR (mL/min/1.73m2) >60 >=60 mL/min/1.73m2 Fructosamine(SENDOUT) Result Value Ref Range Fructosamine 307 (H) 205 - 285 umol/L Hemoglobin A1c Result Value Ref Range Hemoglobin A1C 7.0 (H) 4.2 - 6.3 % eAVG Glucose 154.2 mg/dL Prealbumin Result Value Ref Range Prealbumin 39 20 - 40 mg/dL Prothrombin time/INR Result Value Ref Range Protime 10.2 9.0 - 12.0 seconds INR 0.93 0.80 - 1.10 Vitamin D, 25-Hydroxy Result Value Ref Range Vitamin D 25-Hydroxy 46.42 30.0 - 100.0 ng/mL ECG 12 lead Result Value Ref Range VENTRICULAR RATE EKG/MIN 72 BPM ATRIAL RATE (MCT) 72 BPM AK Interval 164 ms QRS-INTERVAL (MSEC) 98 ms QT Interval 362 ms QTC Interval 396 ms P [place] 26 degrees R AXIS (MCT) -20 degrees T Wave [place] 62 degrees [place] Diagnosis Normal sinus rhythm Normal ECG Confirmed by Alycia LOPEZ SUZANNE ([id number]) on 10/17/2024 10:35:14 AM Assessment and Plan Assessment & Plan Active Problems: Preop examination 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 This Provider utilized the following risk calculators: STOPBANG score 4 RCRI score 1 pt is intermediate risk for intermediate risk surgery. EKG as interpreted by this provider as normal sinus rhythm. Severe DJD: Right hip pain: Patient offered surgical intervention as above. Instructed to discontinue NSAIDs 10days preoperatively, and transition to APAP/narcotics, if prescribed. Recovering alcoholic - Been sober for 15 years prior tobacco abuse, quit COPD -Denies home oxygen - Aware to bring inhaler day of procedure Hyperlipidemia - Continue statin neuropathy - Continue gabapentin Diabetes mellitus - Check A1c and fructosamine - Hold metformin 48 hours - Hold Ozempic 1 week per anesthesia guidelines GERD - Continue Prilosec History of kidney stones - On Flomax. Encouraged him to talk to primary care about needing it daily. He denies history of BPH Hypertension - Hold Maxide day of procedure Insomnia - Uses trazodone nightly Degenerative disc disease of the lumbar spine +mrsa swab, surgeon and team notified. Nicotine/cotinine pending to be followed by surgeon Proceed with surgery as scheduled on 10/[address] Aragon pending labs. Electronically signed by: Rebecca Vazquez PA-C, 10/16/2024 Attending: Dr Sheila Preston Cosigned by Deandre Preston MD at 10/28/2024 12:55 PM EDT documented in this encounter Procedure Notes * Opal Markham RN - 10/16/2024 11:00 AM EDTSummary: Meds albuterol 90 mcg/actuation inhaler Notes to patient: May use the morning of surgery if needed. Bring to hospital the day of surgery. atorvastatin 20 MG tablet Commonly known as: LIPITOR Medication Adjustments for Surgery: Continue until night before surgery celecoxib 200 MG capsule Commonly known as: CeleBREX Notes to patient: Stop today gabapentin 600 MG tablet Commonly known as: NEURONTIN Medication Adjustments for Surgery: Continue until night before surgery ibuprofen 200 MG tablet Commonly known as: MOTRIN Notes to patient: Stop Today metFORMIN 500 MG tablet Commonly known as: GLUCOPHAGE Medication Adjustments for Surgery: Stop 2 days before surgery Notes to patient: Last dose on 10/19/2024 mupirocin 2 % ointment Commonly known as: BACTROBAN Notes to patient: Apply thin layer of ointment to each nostril 3 times per day. Start on 10/17/2024 naproxen 220 MG tablet Commonly known as: NAPROSYN Notes to patient: Stop today omeprazole 40 MG capsule Commonly known as: PriLOSEC Medication Adjustments for Surgery: Continue until night before surgery Ozempic 1 mg/dose (4 mg/3 mL) Pnij Generic drug: semaglutide Medication Adjustments for Surgery: Stop 7 days before surgery Notes to patient: Last dose was 10/10/2024. Do not use any Ozempic injection until instructed to byyour doctor. tamsulosin 0.4 mg Cap 24 hr capsule Commonly known as: FLOMAX Medication Adjustments for Surgery: Continue until night before surgery traZODone 50 MG tablet Commonly known as: DESYREL Medication Adjustments for Surgery: Continue until night before surgery triamterene-hydroCHLOROthiazide 37.5-25 mg per tablet Commonly known as: MAXZIDE-25 Medication Adjustments for Surgery: Continue until night before surgery PRE-OPERATIVE BATHING INSTRUCTIONS Put clean sheets on your bed the night before surgery. Wear clean pajamas the night before surgery. Follow the Bethany-hex instructions given during your PAT visit. Please stop the following over the counter medication 10 days prior to surgery. Nonsteroidal Anti-Inflammatory Drugs (NSAIDs) Examples: Motrin, Advil, Ibuprofen, Naproxen, Aleve All non-essential vitamins and supplements especially garlic, vitamin E, multivitamin, fish oil If you have questions about specific medication not mentioned please ask or call your surgeon. You may take Tylenol for pain unless allergic or contraindicated by your surgeon. documented in this encounter Miscellaneous Notes * Plan of Care - Lali Santamaria RN - 10/16/2024 11:00 AM EDT Pre_Admit Note: 59 y/o Male scheduled for a Right Total Anterior Hip per Dr. Aragon on 10/22/24. Met and spoke with the patient to discuss discharge needs and to verify demographics and confirmed patient identify as well as demographics, contact information, pharmacy, and emergency field contact technician and PCP. Patient states friend will be transporting them from the hospital at discharge. STATUS: Patient lives Alone and is iADLS. PLAN: Home with Outpatient PT and patient choose [address] in [place]. DME: Patient has cane and shower chair at home. He will go to [facility] to pick the walker up CM: registered nurse hh case manager will continue to follow from surgery to discharge. TRANS: family will transport patient home Chronic Narcotic Use greater than 3 months: NO Current pain scale: 8/10 Signed by:Lali Santamaria RN * Plan of Care - Lali Santamaria RN - 10/16/2024 11:00 AM EDT Modified Risk Assessment and Predication Tool (RAPT) for therapy plan. Please Fill out the form andbring it with you to [facility]. Thank you! What is your age group?50- 65 years = 2 Gender : Male =2 How far on average can you walk? Two block or more =2 (A block is about 200 yards) Which Gait aid do you use? None =2 (More often than not) How often do you use outside help or None or one per week =1 rely on family members to assist with activities of daily living? (Home health, [id number], Sitter or shuttlecock assembler service) Will someone stay with you after surgery? (If not, please Yes =3 Notify a friend or family member that you will be needing Help for approximately 3 to 5 days after your total joint Replacement.) Total:12 Signed by: Lali Santamaria RN * Plan of Care - Lali Santamaria RN - 10/16/2024 11:00 AM EDT Orthopedic Nurse Navigator Assessment Attended [facility]:yes [facility] Type:In person [facility] Date: 10/16/24 Joint Charge Lpn Attended [facility]:yes Joint Charge Lpn Name:Suraj (friend) Type of Surgery: Right Total Anterior Hip Does Patient have a Walker?:no Anticipated Discharge Plan: with outpatient physical therapy Patient completed RAPT Score:12 Teaching/Learning Assessment Barriers to Learning: na Individuals Taught: Patient and Friend Baseline Knowledge of Topic:Good Readiness to Learn:Cooperative Learning Style Preferences Patient:Printed Materials and Verbal Explanation Education Topics Educated on Assistive Devices:yes Cell Saver:Verbalizes understanding DVT Prophylaxis:Verbalizes understanding Family Instructions:Verbalizes understanding Herbs/supplement Instructions:Verbalizes understanding Hip Precautions:Verbalizes understanding Lab Studies:Verbalizes understanding Medication Instructions:Verbalizes understanding NPO:Verbalizes understanding Ed-Occupational Therapy:Verbalizes understanding Pain Management:Verbalizes understanding Physical Prep:Verbalizes understanding Physical Therapy:Verbalizes understanding Plan of Care:Verbalizes understanding Positioning:Verbalizes understanding Post-op Activity/Exercise Regimen:Verbalizes understanding Postoperative Home Needs:Verbalizes understanding Post-op Orthopedic Equipment:Verbalizes understanding Procedure Information:Verbalizes understanding Respiratory Care:Verbalizes understanding Surgical Site:Verbalizes understanding Tubes/Drains/IV's:Verbalizes understanding Turn/Cough/Deep Breathe:Verbalizes understanding Weight Bearing:Verbalizes understanding Ed-Orthopedic Pre-Op, Other:Verbalizes understanding Education Topics,Orthopedic Devices, Ortho devices Education, Activity Restrictions:Verbalizes understanding Ambulatory Devices:Verbalizes understanding Elevate Extremity:Verbalizes understanding Hygiene:Verbalizes understanding Ice Application:Verbalizes understanding Immobilizer:Verbalizes understanding Isometric Exercises : Verbalizes understanding Mobility : Verbalizes understanding Pain Management :Verbalizes understanding Positioning : Verbalizes understanding Purpose : Verbalizes understanding Reportable Symptoms : Verbalizes understanding Rest : Verbalizes understanding ROM Exercise : Verbalizes understandingVerbalizes understanding Safety :Verbalizes understanding Self Care : Verbalizes understanding Skin Care : Verbalizes understanding Weight Bearing : Verbalizes understanding Signed by: Lali Santamaria RN documented in this encounter Plan of Treatment Not on file documented as of this encounter Procedures Procedure Name Priority Date/Time Associated Diagnosis Comments CBC W/ AUTO DIFF Routine 10/16/2024 10:5 3 AM EDT Preop examination NICOTINE & METS, S/P, QUANT(SENDOUT) Routine 10/16/2024 10:53 AM EDT Preop examination FRUCTOSAMINE(SENDOUT) Routine 10/16/2024 10:53 AM EDT Preop examination VITAMIN D, 25-HYDROXY Routine 10/16/2024 10:53 AM EDT Preop examination APTT Routine 10/16/2024 10:53 AM EDT Preop examination PROTHROMBIN TIME/INR Routine 10/16/2024 10:53 AM EDT Preop examination MRSA SCREEN Routine 10/16/2024 10:53 AM EDT Preop examination PREALBUMIN Routine 10/16/2024 10:53 AM EDT Preop examination HEMOGLOBIN A1C Routine 10/16/2024 10:53 AM EDT Preop examination COMPREHENSIVE METABOLIC PANEL Routine 10/16/2024 10:53 AM EDT Preop examination FS_MODEL_IP_ECG 12-LEAD Routine 10/16/2024 10:04 AM EDT Preop examination documented in this encounter Results * Vitamin D, 25-Hydroxy (10/16/2024 10:53 AM EDT) Pathologist [facility] Vitamin D 25-Hydroxy 46.42 30.0 - 100.0 ng/mL 10/16/2024 1:49 PM EDT [facility] Blood Venipuncture / Unknown 10/16/2024 10:53 AM EDT 10/16/2024 1:12 PM EDT Luís Thakur MD LAB BLOOD ORDERABLES [facility] Result Performing Organization Address [facility] Phone Number [address] [phone] * Prothrombin time/INR (10/16/2024 10:53 AM EDT) [facility] Protime 10.2 9.0 - 12.0 seconds 10/16/2024 1:31 PM EDT [facility] INR 0.93 0.80 - 1.10 10/16/2024 1:31 PM EDT [facility] Comment: Recommended therapeutic ranges using International Normalized Ratio (INR) are: INR RANGE 2.0 - 3.0 Routine oral anticoagulant therapy 2.5 - 3.5 Oral anticoagulant therapy for patients with thromboembolic events on standard doses of Coumadin and those with mechanical heart valves. Blood Venipuncture / Unknown 10/16/2024 10:53 AM EDT 10/16/2024 1:12 PM EDT Luís Thakur MD LAB BLOOD ORDERABLES [facility] Result Performing Organization Address [facility] [place] Phone Number [facility] [address] [employer] [place] [phone] * Prealbumin (10/16/2024 10:53 AM EDT) Prealbumin 39 20 - 40 mg/dL 10/16/2024 1:49 PM EDT [facility] Blood Venipuncture / Unknown 10/16/2024 10:53 AM EDT 10/16/2024 1:12 PM EDT Luís Thakur MD LAB BLOOD ORDERABLES [facility] Result [facility] [address] [phone] * Nicotine & Mets, S/P, Quant(SENDOUT) (10/16/2024 10:53 AM EDT) Cotinine, S/P, Quant <5 ng/mL 10/24/2024 1:51 AM EDT [facility] Nicotine, S/P, Quant <5 ng/mL 10/24/2024 1:51 AM EDT [facility] Comment: INTERPRETIVE INFORMATION: Nicotine and Metabolites, Serum or [...] developed and its performance characteristics determined by [facility]. It has not been cleared or approved by the [place] Food and Drug Administration. This test was performed in a CLIA certified laboratory and is intended for clinical purposes. Performed By: [facility] [address] [place] [id number] Vacuum Cooker Operator: Anders Wooten MD, PhD CLIA Number: [id number] Blood Venipuncture / Unknown 10/16/2024 10:53 AM EDT 10/16/2024 1:12 PM EDT us Luís Thakur MD LAB BLOOD ORDERABLES [facility] Result [facility] [address] [place] [address] [phone] * (ABNORMAL) MRSA Screen (10/16/2024 10:53 AM EDT) MRSA by PCR [facility] MRSA Detected by PCR(A) MRSA Not Detected by PCR DEVICE ID9 10/16/2024 4:45 PM EDT [facility] Nasal BOTH ANTERIOR NARES / Unknown 10/16/2024 10:53 AM EDT 10/16/2024 1:12 PM EDT us Luís Thakur MD MICROBIOLOGY - GENERAL OR DERABLES Final Result Performing Organization Address City/[facility]/ZIP Co de Phone Number [facility] [address] [place] [address] * (ABNORMAL) Hemoglobin A1c (10/16/2024 10:53 AM EDT) Hemoglobin A1C 7.0(H) 4.2 - 6.3 % 10/16/2024 1:36 PM EDT [facility] Comment: Hemoglobin A1C levels are related to mean glucose during the preceding 2-3 months. Less than 7% demonstrates glycemic control in diabetic patients. Hemoglobin AlC % Suggested Diagnosis > or = 6.5 Diabetic 5.7 - 6.4 Prediabetic <5.7 Non-diabetic eAVG Glucose 154.2 mg/dL 10/16/2024 1:36 PM EDT [facility] Blood Venipuncture / Unknown 10/16/2024 10:53 AM EDT 10/16/2024 1:13 PM EDT us Luís Thakur MD LAB BLOOD ORDERABLES [facility] Result [facility] [address] [place] [address], [facility] [phone] * (ABNORMAL) Fructosamine(SENDOUT) (10/16/2024 10:53 AM EDT) Fructosamine 307(H) 205 - 285 umol/L 10/19/2024 5:25 AM EDT [facility] Comment: INTERPRETIVE INFORMATION: Fructosamine Variations in levels of serum proteins (albumin and immunoglobulins) may affect fructosamine results. Performed By: [facility] [address] [place] [address] Vacuum Cooker Operator: Anders Wooten MD, PhD CLIA Number: [id number] Blood Venipuncture / Unknown 10/16/2024 10:53 AM EDT 10/16/2024 1:12 PM EDT Luís Thakur MD LAB BLOOD ORDERABLES [facility] Result Performing Organization Address City/[facility]/ZIP Co de Phone Number [facility] [address] [place] [address], [facility] [phone] * (ABNORMAL) Comprehensive metabolic panel (10/16/2024 10:53 AM EDT) Sodium 139 136 - 146 meq/L 10/16/2024 1:49 PM EDT [facility] Potassium 4.1 3.5 - 5.1 meq/L 10/16/2024 1:49 PM EDT [facility] Chloride 108 102 - 112 meq/L 10/16/2024 1:49 PM EDT [facility] CO2 27 21 - 32 meq/L 10/16/2024 1:49 PM EDT [facility] Calcium 10.1 8.5 - 10.1 mg/dL 10/16/2024 1:49 PM EDT [facility] Glucose 144(H) 74 - 106 mg/dL 10/16/2024 1:49 PM EDT [facility] BUN 26(H) 7 - 22 mg/dL 10/16/2024 1:49 PM T [facility] Creatinine 1.12 0.70 - 1.30 mg/dL 10/16/2024 1:49 PM T [facility] BUN/Creatinine 23(H) 8 - 20 10/16/2024 1:49 PM T [facility] Albumin 4.1 3.4 - 5.0 g/dL 10/16/2024 1:49 PM T [facility] Alkaline Phosphatase 85 27 - 136 U/L 10/16/2024 1:49 PM T [facility] ALT 27 12 - 78 U/L 10/16/2024 1:49 PM T [facility] AST 11 5 - 37 U/L 10/16/2024 1:49 PM [facility] Total Bilirubin 0.4 0.2 - 1.3 mg/dL 10/16/2024 1:49 PM [facility] Protein, Total 7.5 6.4 - 8.2 gm/dL 10/16/2024 1:49 PM [facility] Anion Gap 8(L) 9 - 20 10/16/2024 1:49 PM [facility] A/G Ratio 1.2 1.1 - 2.5 10/16/2024 1:49 PM [facility] Globulin 3.4 1.5 - 4.5 g/dL 10/16/2024 1:49 PM [facility] Osmolality Calc 284.8 mOsm/kg 1:49 PM [facility] eGFR (mL/min/1.73m2) >60 >=60 mL/min/1.7 3m2 10/16/2024 1:49 PM [facility] Comment:ESTIMATED GFR IS NOT ACCURATE CREATININE CLEARANCE IN PREDICTING GLOMERULAR FILTRATION RATE. ESTIMATED GFR IS NOT APPLICABLE FOR DIALYSIS PATIENTS. Blood Venipuncture / Unknown 10/16/2024 10:53 AM EDT 10/16/2024 1:12 PM EDT Luís Thakur MD LAB BLOOD ORDERABLES [facility] [address] [place] [address], [facility] [phone] * (ABNORMAL) CBC with automated diff (10/16/2024 10:53 AM EDT) WBC 6.3 3.9 - 10.0 K/ L 10/16/2024 1:26 PM EDT [facility] RBC 4.43(L) 4.63 - 6.08 M/ L 10/16/2024 1:26 PM EDT [facility] Hemoglobin 12.9 11.2 - 15.7 GM/DL 10/16/2024 1:26 PM EDT [facility] Hematocrit 39.1(L) 40.1 - 51.0 % 10/16/2024 1:26 PM EDT [facility] MCV 88 79 - 95 fL 10/16/2024 1:26 PM EDT [facility] MCH 29.1 25.6 - 32.2 pg 10/16/2024 1:26 PM EDT [facility] MCHC 33.0 32.3 - 36.5 GM/DL 10/16/2024 1:26 PM EDT [facility] RDW 13.8 11.6 - 14.4 % 10/16/2024 1:26 PM EDT [facility] Platelets 163 163 - 369 K/CU MM 10/16/2024 1:26 PM EDT [facility] MPV 12.3 9.4 - 12.4 fL 10/16/2024 1:26 PM EDT [facility] % Neutros 58 34 - 68 % 10/16/2024 1:26 PM EDT [facility] % Lymphs 24 19 - 53 % 10/16/2024 1:26 PM EDT [facility] % Monos 9 4 - 13 % 10/16/2024 1:26 PM EDT [facility] % Eos 7 1 - 7 % 10/16/2024 1:26 PM EDT [facility] % Baso 2(H) 0 - 1 % 10/16/2024 1:26 PM EDT [facility] # Neutros 3.66 1.56 - 6.13 K/ L 10/16/2024 1:26 PM EDT [facility] # Lymphs 1.54 1.18 - 3.74 K/ L 10/16/2024 1:26 PM EDT [facility] # Monos 0.57 0.24 - 0.82 K/ L 10/16/2024 1:26 PM EDT [facility] # Eos 0.45 0.04 - 0.54 K/ L 10/16/2024 1:26 PM EDT [facility] # Baso 0.10(H) 0.01 - 0.08 K/ L 10/16/2024 1:26 PM EDT [facility] Immature Granulocytes-Re lative 0.20 0.00 - 0.60 % 10/16/2024 1:26 PM EDT [facility] # IG 0.01 0.00 - 0.05 K/uL 10/16/2024 1:26 PM EDT [facility] Blood Venipuncture / Unknown 10/16/2024 10:53 AM EDT 10/16/2024 1:13 PM EDT Narrative [facility] - 10/16/2024 1:26 PM EDT When CBC w/ Auto Diff is ordered the lab will add a Manual Differential as a quality check at no additional charge if: Lymphocytes greater than seventy five percent with normal or increased WBC Monocytes greater than Fifteen percent Basophil greater than four percent Bands >10% or several immature myeloids are seen on scan Blast? Flag noted Atypical Lymph flag noted Luís Thakur MD LAB BLOOD ORDERABLES [facility] [address] [phone] * aPTT (10/16/2024 10:53 AM EDT) aPTT 25.0 22.0 - 32.0 seconds 10/16/2024 1:31 PM EDT [facility] Blood Venipuncture / Unknown 10/16/2024 10:53 AM EDT 10/16/2024 1:12 PM EDT Luís Thakur MD LAB BLOOD ORDERABLES [facility] [address] [place] [address], [facility] [phone] * ECG 12 lead (10/16/2024 10:04 AM EDT) VENTRICULAR RATE EKG/MIN 72 BPM GE MUSE ATRIAL RATE (MCT) 72 BPM GE MUSE AK Interval 164 ms GE MUSE QRS-INTERVAL (MSEC) 98 ms GE MUSE QT Interval 362 ms GE MUSE QTC Interval 396 ms GE MUSE P [place] 26 degrees GE MUSE R AXIS (MCT) -20 degrees GE MUSE T Wave [place] 62 degrees GE MUSE [place] Diagnosis Normal sinus rhythm Normal ECG Confirmed by Alycia LOPEZ SUZANNE ([id number]) on 10/17/2024 10:35:14 AM GE MUSE 10/16/2024 10:0 4 AM EDT 10/17/2024 10:35 AM EDT Luís Thakur MD ECG ORDERABLES Final Res ult Performing Organization Address City/[facility] Co de Phone Number GE MUSE documented in this encounter Visit Diagnoses Diagnosis Preop examination- Primary Unspecified pre-operative examination Preop examination Unspecified pre-operative examination 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) Neuropathy Mononeuritis of unspecified site Kidney stone Calculus of kidney 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) DM (diabetes mellitus) (HCC) Type II or unspecified type diabetes mellitus without mention of complication, not stated as uncontrolled Hyperlipidemia Other and unspecified hyperlipidemia DDD (degenerative disc disease), lumbar Degeneration of lumbar or lumbosacral intervertebral disc COPD (chronic obstructive pulmonary disease) (HCC) Chronic airway obstruction, not elsewhere classified Neuropathy Mononeuritis of unspecified site Kidney stone Calculus of kidney HTN (hypertension) Unspecified essential hypertension documented in this encounter Additional Health Concerns Infection Onset Date Last Indicated Resolved Time 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
--- OUTSIDE RECORDS SUMMARY | 2024-10-22 07:46 | XMS_ITS | Encounter Summary ---
Author Organization [facility] ([place], [place], [place], [place]) Address [address] [place] [address] Care Team Providers Care Pharmacy Salesperson Name Role Phone Dany Smith MD Primary Care Provider [phone] Reason for Visit * Auth/Cert (Routine) Specialty Diagnoses / Procedures Referred By Contac t Referred To Contact Diagnoses Unilateral primary osteoarthritis, right hip M16.11 Procedures NM ARTHRP ACETBLR/PROX FEM PROSTC AGRFT/ALGRFT ARTHROPLASTY, HIP, ANTERIOR APPROACH Geoff Aragon MD [address] [address] Phone: tel: fax: Referral ID Status Reason Start Date Expiration Date Visits Re quested Visits Authorized [id number] 09/29/2024 1 1 Encounter Details Date Type Department Care Team (Late st Contact Info) Description 10/22/2024 7:46 AM EDT - 10/22/2024 4:52 PM EDT Hospital Encounter [facility] Surgery Department [address] [place] [phone] Geoff Aragon MD [facility] [place] [address] Discharge Disposition: Home or Self Care Social History Tobacco Use Types Packs/Day Years Used Date Smoking Tobacco: Former Cigarettes Smokeless Tobacco: Current Tobacco Cessation:Ready to Q uit: Not Asked; Counseling Given: Not Answered Comments:Quit vaping approx 45 [...] Sign Reading Time Taken Comments Blood Pressure 147/76 10/22/2024 4:50 PM EDT Pulse 78 10/22/2024 4:50 PM EDT Temperature 36.4 C (97.5 F) 10/22/2024 3:27 PM EDT Respiratory Rate 16 10/22/2024 4:50 PM EDT Oxygen Saturation 93% 10/22/2024 4:50 PM EDT Inhaled Oxygen Concentration - - Weight 108 kg (238 lb) 10/22/2024 8:30 AM EDT Height - - Body Mass Index 30.56 10/16/2024 10:58 AM EDT documented in this encounter Discharge Instructions * Discharge Instructions* Noy Tovar RN - 10/22/2024 3:12 PM EDT [facility] What to expect after the Procedure: After the procedure, it is common to have: Pain and swelling. A small amount of blood or clear fluid coming from your incision for up to 7 days It is normal to have a moderate amount of bleeding from the site of the drain that was pulled on the morning after surgery. You can hold pressure on the area for 3-5 minutes and cover with a bandage as needed. Diet: Resume usual diet No alcoholic beverages while taking pain medication Drink 8-10 glasses of water a day to prevent constipation from pain medication Increase fiber to help prevent constipation. Straining can cause increased pressure and pain in your incision area Increase protein to promote healing Driving: Do not drive until your health care provider approves. Ask your health care provider when it is safe to drive if you have an immobilizer on your knee. Do not drive or operate heavy machinery while taking prescription pain medicine. Do not drive for 24 hours if you received a sedative. Activity: Do not lift anything that is heavier than 10 lb (4.5 kg) until your health care provider approves. No strenuous activity Avoid high-impact activities, including running, jumping rope, and jumping jacks. Avoid sitting for a long time without moving. Get up and move around at least every few hours. Keep legs elevated while seated and place surgery leg on 2-3 pillows, this will decrease swelling Continue using walker until cleared by physical therapy Bathing: Do not take baths, swim, or use a hot tub for one month after surgery. May shower on the third day after surgery by covering the incision with Glad Brand Press and Seal saran wrap. After showering, dry off completely BEFORE removing saran wrap. Use Press and Seal saran wrap to shower for one month after surgery You must be seated to shower until you are no longer using the walker Other: Use ice therapy for 20-30 minutes at a time and leave off for 20-30 minutes at a time. Always keep a towel or cloth between the ice pack and your skin Continue to use Incentive Spirometer 10 times an hour while awake for one month to help prevent pneumonia Leave Mepilex dressing on until follow-up appointment. ASA 81mg twice a day for 45 days. Contact a health care provider if: You have more redness, swelling, or pain around your incision. You have more fluid or blood coming from your incision. Your incision or drain site feels warm to the touch. You have pus or a bad smell coming from your incision. You have a fever. Your incision breaks open after your health care provider removes your sutures, skin glue, or adhesive tape. Your prosthesis feels loose. You have knee pain that does not go away. Get help right away if you have: Pain or swelling in your calf or thigh Shortness of breath or difficulty breathing chest pain DVT: Blood Clot Blood clots are a common risk after an orthopedic surgery Symptoms: Swelling of your leg or arm, especially if one side is much worse. Warmth and redness of your leg or arm, especially if one side is much worse. Pain in your arm or leg. If the clot is in your leg, symptoms may be more noticeable or worse when you stand or walk. A feeling of pins and needles, if the clot is in the arm. The symptoms of a DVT that has traveled to the lungs (pulmonary embolism, PE) usually start suddenly and include: Shortness of breath while active or at rest. Coughing or coughing up blood or blood-tinged mucus. Chest pain that is often worse with deep breaths. Rapid or irregular heartbeat. Feeling light-headed or dizzy. Fainting. Feeling anxious. Sweating. There may also be pain and swelling in a leg if that is where the blood clot started. How is this prevented? Exercise regularly. For at least 30 minutes every day, engage in: -Activity that involves moving your arms and legs. -Activity that encourages good blood flow through your body by increasing your heart rate. Exercise your arms and legs every hour during long-distance travel (over 4 hours). Drink plenty of water and avoid drinking alcohol while traveling. Avoid sitting or lying in bed for long periods of time without moving your legs. Maintain a weight that is appropriate for your height. Ask your healthcare provider what weight is healthy for you. If you are a woman who is over 35 years of age, avoid unnecessary use of medicines that contain estrogen. These include control pills. Do not smoke, especially if you take estrogen medicines. If you need help quitting, ask your healthcare provider. Wear compression stockings (if told by your healthcare provider) to help prevent blood clots from forming. High Fiber/High Protein Diet High fiber foods: To prevent constipation Grains Whole-grain breads. Multigrain cereal. Oats and oatmeal. Brown rice. Barley. Bulgur wheat. Millet. Bran muffins. Popcorn. Brickeys wafer crackers. Vegetables Sweet potatoes. Spinach. Kale. Artichokes. Cabbage. Broccoli. Green peas. Carrots. Squash. Fruits Berries. Pears. Apples. Oranges. Avocados. Prunes and raisins. Dried figs. Meats and Other Protein Sources [place], kidney, sheldon, and soybeans. Split peas. Lentils. Nuts and seeds. Dairy Fiber-fortified yogurt. Beverages Fiber-fortified soy milk. Fiber-fortified orange juice. Other Fiber bars. High-protein foods: To promote healing High-protein foods contain 4 grams (4 g) or more of protein per serving. They include: Beef, ground sirloin (cooked) -- 3 oz have 24 g of protein. Cheese (hard) -- 1 oz has 7 g of protein. Chicken breast, boneless and skinless (cooked) -- 3 oz have 13.4 g of protein. Cottage cheese -- 1/2 cup has 13.4 g of protein. Egg -- 1 egg has 6 g of protein. Fish, filet (cooked) -- 1 oz has 6-7 g of protein. Garbanzo beans (canned or cooked) -- 1/2 cup has 6-7 g of protein. Kidney beans (canned or cooked) -- 1/2 cup has 6-7 g of protein. Whitney (cooked) -- 3 oz has 24 g of protein. Milk -- 1 cup (8 oz) has 8 g of protein. Nuts (peanuts, pistachios, almonds) -- 1 oz has 6 g of protein. Peanut butter -- 1 oz has 7-8 g of protein. Pork tenderloin (cooked) -- 3 oz has 18.4 g of protein. Pumpkin seeds -- 1 oz has 8.5 g of protein. Soybeans (roasted) -- 1 oz has 8 g of protein. Soybeans (cooked) -- 1/2 cup has 11 g of protein. Soy milk -- 1 cup (8 oz) has 5-10 g of protein. Soy or vegetable stefania -- 1 stefania has 11 g of protein. [place] seeds -- 1 oz has 5.5 g of protein. Tofu (firm) -- 1/2 cup has 20 g of protein. Tuna (canned in water) -- 3 oz has 20 g of protein. Yogurt -- 6 oz has 8 g of protein. Fall Prevention Use night lights. Install grab bars by the toilet and in the tub and shower. Do not use towel bars as grab bars. Use non-skid mats or decals on the floor of the tub or shower. If you need to sit down while you are in the shower, use a plastic, non-slip stool. Keep the floor dry. Immediately clean up any water that spills on the floor. Remove soap buildup in the tub or shower on a regular basis. Remove throw rugs and other tripping hazards from the floor. Place frequently used items in [id number] places Keep electrical cables out of the way. Do not leave any items on the stairs. Make sure that there are handrails on both sides of the stairs. Fix handrails that are broken or loose. Make sure that handrails are as long as the stairways. Check any carpeting to make sure that it is firmly attached to the stairs. Fix any carpet that is loose or worn. Avoid throwing rugs at the top or bottom of stairways, or secure the rugs with carpet tape to prevent them from moving. Wear closed-toe shoes that fit well and support your feet. Wear shoes that have rubber soles or lowheels. Use mobility aids as needed, such as canes, walkers, scooters, and crutches. Turn on lights if it is dark. Replace any light bulbs that burn out. Set up furniture so that there are clear paths. Keep the furniture in the same spot. Be aware of any and all pets. Review your medicines with your healthcare provider. Some medicines can cause dizziness or changes in blood pressure, which increase your risk of falling. Hand Washing You should wash your hands whenever you think they are dirty. You should also wash your hands: After: Working or playing outside. Touching an animal or its toys or leash. Handling livestock. Using the bathroom. Using household scouring train operator or toxic chemicals. Touching or taking out the garbage. Touching anything dirty around your home. Handling soiled clothes or rags. Taking care of a sick child. This includes touching used tissues, toys, and clothes. Sneezing, coughing, or blowing your nose. Using public transportation. Shaking hands. Using a phone, including your mobile phone. Touching money. Before and after: Preparing food. Feeding a baby or young child. Eating. Visiting or taking care of someone who is sick. Changing a diaper. Changing a bandage (dressing) or taking care of an injury or wound. Giving or taking medicine. If soap and clean water are not available, use an alcohol-based wipe, spray, or hand gel. Use a hand-sanitizing agent that contains at least 60% alcohol. If you are preparing food, hand sanitizers are not recommended as a substitute for hand washing. Walker Use To Walk With a Front-Wheeled Walker: 1. Slide your front-wheeled walker one step-length in front of you. Your toes should be further forward than the back legs of your walker. 2. Hold on to the walker for support, and step your weaker (surgery) leg into the middle of the walker. 3. Step your stronger leg forward to land next to your weaker leg. 4. Repeat the process for each step. Always keep both feet within the width of the walker's legs or wheels. When using your walker, you should not feel like you need to lean forward or to the side to keep your hands on the hand ccnp. Make sure you are following any weight-bearing instructions that your health care provider has given you. Be careful not to let the walker get too far ahead of you as you walk. If your walker does not glide well over carpet, consider cutting an X into two tennis balls and placing the balls over the back legs of your walker. To Use a Walker to Step Up: 1. Put all four legs of the walker on the curb or step. 2. Get your feet as close to the curb or step as you can. 3. Test the steadiness of the walker by pressing down on the hand ccnp. 4. If the walker is steady, press down on it with your hands as you step up with your stronger leg. 5. Step up with your weaker leg. To Use a Walker to Step Down: 1. Put all four legs of the walker on the surface that is lower than the curb or step. 2. Get your feet as close to the curb or step as you can. 3. Test the steadiness of the walker by pressing down on the hand ccnp. 4. If the walker is steady, press down on it with your hands as you step down with your weaker leg. 5. Step down with your stronger leg. VERONIQUE DRESSING TEACHING 1. What is a Veronique dressing? a. VERONIQUE negative pressure wound dressings are designed to allow an even distribution of negative pressure on the surface of a closed surgical incision. The system is also designed to be portable. 2. How long does a Veronique dressing stay on? a. The VERONIQUE 7 dressing (with AIRLOCK? Technology) has a wear time of up to 7 days depending on exudate (drainage) levels. 3. Is Veronique dressing a vac dressing? a. VERONIQUE is a canister-free, single-use negative pressure wound therapy system consisting of a single-use sterile pump and two multi-layered adhesive dressings. 4. Can you shower with Veronique dressing? a. The PICOTM Dressing is water resistant. Light showering is permissible; however, the pump should be disconnected (see Precautions) and placed in a safe location where it will not get wet. The dressing should not be exposed to a direct spray or submerged in water. 5. Why does veronique dressing buzz? a. If the green light is flashing, the machine is OK. A constant buzzing may mean: The machine has lost a seal. The battery is . The dressing is saturated (full) and needs to be changed. b. Air leaks. If a high air leak has been detected, an orange leak indicator will flash. You will hear the pump make a buzzing sound as it tries to get to the right vacuum. Smooth down around the outside of your dressing including the strips with your hands to remove any creases. 6. Why is my Veronique dressing blinking green and orangeThe GREEN OK and ORANGE? battery indicators are flashing; this means there is 24 hours or less of battery life remaining. Tochange the batteries: Press/hold the ORANGE Power button to stop the therapy. Remove battery cover (back of the machine) and batteries. 7. The VERONIQUE pumps contain a MAGNET. Keep the VERONIQUE pumps at least 4 inches (10 cm) away from other medical devices at all times. As with all electrical medical equipment, failure to maintain appropriate distance may disrupt the operation of nearby medical devices. For full product and safety information, please see the Instructions for Use. * Discharge Instr - Other Orders* Annemarie Delgado RN - 10/22/2024 1:54 PM EDT Keep wounds dry Remove LUIS ANTONIO wrap post op day 2 Leave mepilex/ veronique dressing until post op day 7 Roxicodone given at 2:00 pm. Plan next dose accordingly. * Attachments The following attachments cannot be sent through Care Everywhere. * General Anesthesia Adult Care After (Faroese) documented in this encounter Medications at Time [...] mouth daily. documented as of this encounter Progress Notes * Noy Tovar RN - 10/22/2024 3:49 PM EDT Patient ambulated 200 ft from bed to bathroom and back with minimal assistance. He ate 70% of meal tray with no nausea. Pain is well controlled. He voided 250 cc. * Lali Santamaria RN - 10/20/2024 2:13 PM EDT [address] in [facility] is temporally closed. Called and spoke to the patient about which other outpatient PT he would like to use. Patient choose [facility] outpatient PT in [place]. Phone . Fax order to . Patient is set up for outpatient PT on 10/23/24 at 2:00 pm. documented in this encounter H&P Notes * Geoff Aragon MD - 10/22/2024 9:01 AM EDT H&P reviewed. The patient was examined and there are no changes to the H&P. Source Note - Geoff Aragon MD - 10/21/2024 12:55 PM EDT documented in this encounter OR Notes * Op Note - Geoff Aragon MD - 10/22/2024 2:10 PM EDT Date: 10/22/2024 Procedures: Procedure(s): Direct anterior right total hip replacement Diagnosis: Pre-Op Diagnosis Codes: * Unilateral primary osteoarthritis, right hip [M16.11] Post-Op Diagnosis Codes: * Unilateral primary osteoarthritis, right hip [M16.11] Indications: Anson Brown is an 59 y.o. male . The risks, benefits, and alternatives of the above procedure were discussed and the patient has elected to proceed. Surgeons: Surgeons and Role: * Geoff Aragon MD - Primary Findings: Procedure Details: The patient was seen in the preoperative area. The site of surgery was properly noted/marked if necessary per policy. The patient has been actively warmed in preoperative area. Preoperative antibiotics have been ordered and given within 1 hours of incision. Venous thrombosis prophylaxis have been ordered including bilateral sequential compression devices patient was placed in the supine position on the Jewell table bony prominences padded with sterile prep Timeout timeout IV antibiotics given TXAgiven and then after sterile prep and drape timeout incision made 4 to 6 inches length just lateraldistal to the anterior superior iliac spine subcutaneous nerve branches protected the deep fascia of the tensor was opened longitudinally and the rectus tensor interval was opened down to the circumflex vessels which were cauterized divided and the deep fascia opened exposing capsule capsulotomy performed blunt retractors placed on the femoral neck neck osteotomy osteotomy under fluoroscopy control was made and the disease femoral head removed soft tissue from the periphery and bed of the acetabulum was removed and then sequential reaming up to size 54 acetabular component with good bleeding bone press-fit fixation was achieved of the 54 cup liner with the extension anterior superior was placed to accept a 40+35 ceramic femoral head component we then extra rotated extended the leg and released the capsule off the proximal femur and trochanter foot to allow the elevator to bring the femur to proper position for broaching sequential broaching up to a size 7 extended offset MONROE-coated collared stem was placed equal leg lengths with a +35 were noted and good stability on the table final implants were placed and then the hip reduced confirming equal leg lengths and stability bleeding con trolled irrigation local anesthetic layered closure sterile dressing ice pack and transfer the patient to the recovery in good condition good condition Anesthesia: General Estimated Blood Loss: * No values recorded between 10/22/2024 11:06 AM and 10/22/2024 2:10 PM * Total IV Fluids: mL Drains: * No LDAs found * Specimens: Specimens (From admission, onward) None Complications: None * No complications entered in OR log * Disposition: PACU - hemodynamically stable. Condition: stable Attending Attestation: I was present and scrubbed for the entire procedure. documented in this encounter Plan of Treatment Not on file documented as of this encounter Procedures Procedure Name Priority Date/Time Associated Diagnosis Comments NOVA GLUCOSE POC Routine 10/22/2024 1:13 PM EDT FL < 1 HOUR Routine 10/22/2024 12:30 PM EDT NM ARTHRP ACETBLR/PROX FEM PROSTC AGRFT/ALGRFT 10/22/2024 11:06 AM EDT Unilateral primary osteoarthritis, right hip Case Notes EXACTECH, HANA TABLE, C-ARM NOVA GLUCOSE POC Routine 10/22/2024 7:59 AM EDT EKG-SCANNED 10/22/2024 documented in this encounter Results * (ABNORMAL) Glucose, Nova Meter (10/22/2024 1:13 PM EDT) POC-GLUCOSE 218(H) 70 - 110 mg/dL 10/22/2024 1:15 PM EDT [facility] Comment:In the event of poor peripheral blood flow, venous or arterial blood should be used due to the potential of erroneous results. Photoengraving Helper [id number] 10/22/2024 1:15 PM EDT [facility] Blood WHOLE BLOOD / Unknown 10/22/2024 1:13 PM EDT 10/22/2024 1:15 PM EDT Narrative [facility] - 10/22/2024 1:15 PM EDT Photoengraving Helper ID is - [id number] us Geoff Aragon MD POINT OF CARE TEST ORDERABLES Fi nal Result [facility] [address] [phone] * Fluoroscopy less than 1 hour (10/22/2024 12:30 PM EDT) Anatomical Region Laterality Modality X-Ray 10/22/2024 3:29 PM EDT Impressions 10/22/2024 3:40 PM EDT Please see postoperative report. Images reviewed, interpreted, and dictated by Dr. Rocio Ignacio. Transcribed by Willis Simons PA-C. Narrative 10/22/2024 3:40 PM EDT FLUOROSCOPY WITH FILMS HISTORY: right hip replacement Fluoroscopic guidance was provided under the direction of the clinical service for intraoperative procedure. 2 digital spot radiographs were obtained for hip arthroplasty. Fluoroscopy time was 0.28 minutes. RADIATION DOSE: Reference air kerma 5 mGy. Procedure Note Chicho Ignacio MD - 10/22/2024 FLUOROSCOPY WITH FILMS HISTORY: right hip replacement Fluoroscopic guidance was provided under the direction of the clinical service for intraoperative procedure. 2 digital spot radiographs were obtained for hip arthroplasty. Fluoroscopy time was 0.28 minutes. RADIATION DOSE: Reference air kerma 5 mGy. IMPRESSION: Please see postoperative report. Images reviewed, interpreted, and dictated by Dr. Rocio Ignacio. Transcribed by Willis Simons PA-C. Geoff Aragon MD IMG FLUOROSCOPY ORDERABLES Final Result * (ABNORMAL) Glucose, Nova Meter (10/22/2024 7:59 AM EDT) POC-GLUCOSE 150(H) 70 - 110 mg/dL 10/22/2024 8:03 AM EDT [facility] Comment:In the event of poor peripheral blood flow, venous or arterial blood should be used due to the potential of erroneous results. Photoengraving Helper [id number] 10/22/2024 8:03 AM EDT [facility] Blood WHOLE BLOOD / Unknown 10/22/2024 7:59 AM EDT 10/22/2024 8:03 AM EDT Narrative [facility] - 10/22/2024 8:03 AM EDT Photoengraving Helper ID is - [id number] Geoff Aragon MD POINT OF CARE TEST ORDERABLES Fi nal Result [facility] [address] [phone] * EKG-SCANNED (10/22/2024) Narrative 10/22/2024 Ordered by an unspecified provider. us Default Scanning Provider SCAN ORDERS Final Result documented in this encounter Visit Diagnoses Not on filedocumented in this encounter Administered Medications Inactive Administered Medications - up to 3 most recent administrations Medication Order MAR Action Action Date Dose Rate Site albuterol 2.5 mg /3 mL (0.083 %) nebulizer solution 2.5 mg 2.5 mg Once as needed, nebulization, wheezing, Starting on Sun10/22/24 at 1239, For 1 dose, RESPIRATORY THERAPY TREATMENT , PACU, What is the respiratory therapy Modality? Small volume Nebulization ceFAZolin (ANCEF) IVPB 2 g/50 mL D5W (premix) 2 g Every 8 hours scheduled, intravenous, Administer over 30 Minutes, First dose on Sun10/22/24 at 1600, For 2 doses, PACU Cont. to Floor/ICU, Please choose an indication: Surgical Prophylaxis IVPB Started 10/22/2024 3:41 PM EDT 2 g 100 mL/hr diphenhydrAMINE (BENADRYL) injection 12.5 mg 12.5 mg Once as needed, intravenous, itching, Starting on Sun10/22/24 at 1239, For 1 dose, Maximum cumulative dose 100 mg, PACU electrolyte-R (NORMOSOL-R) infusion at 100 mL/hr, intravenous, Continuous, Starting on Sun10/22/24 at 0830, Pre-op New Bag 10/22/2024 12:56 PM EDT 100 mL/hr 100 mL/hr Continued by Anesthesia 10/22/2024 11:06 AM EDT 100 mL/hr 100 mL/hr New Bag 10/22/2024 9:08 AM EDT 100 mL/hr 100 mL/hr famotidine (PEPCID) tablet 20 mg 20 mg Once, oral, On Sun10/22/24 at 0830, For 1 dose, Pharmacist to renally dose if CrCl is less than 50 mL/min or on CRRT., Pre-op Given 10/22/2024 9:11 AM EDT 20 m g fentaNYL PF (SUBLIMAZE) injection 25 mcg 25 mcg Every 5 min PRN, intravenous, moderate to severe pain (4-10), Starting on Sun10/22/24 at 1239, For 4 doses, Maximum cumulative dose 100 mcg without speaking to anesthesia provider, PACU Given 10/22/2024 1:40 PM EDT 25 mcg Given 10/22/2024 1:35 PM EDT 25 mcg Given 10/22/2024 1:30 PM EDT 25 mcg hydrALAZINE (APRESOLINE) injection 5 mg 5 mg Every 10 min PRN, intravenous, high blood pressure (specify), htn, Starting on Sun10/22/24 at 1239, For 2 doses, Hold if SBP less than 140 mmHg, DBP less than 70 mmHg, or patient is on pressor. Look-alike/Sound-alike medication, PACU HYDROmorphone (DILAUDID) injection 0.5 mg 0.5 mg Every 10 min PRN, intravenous, severe pain (7-10), Starting on Sun10/22/24 at 1239, For 4 doses, Maximum cumulative dose 2 mg without verifying with anesthesia provider Use if fentanyl ineffective at controlling pain., PACU Given 10/22/2024 2:23 PM EDT 0.5 mg ipratropium-albuteroL (DUO-NEB) 0.5 mg-3 mg(2.5 mg base)/3 mL nebulizer solution 3 mL 3 mL Once as needed, nebulization, wheezing, Wheezing in patient with COPD or emphysema, Starting on Sun10/22/24 at 1239, For 1 dose, RESPIRATORY THERAPY TREATMENT Protect from Light, PACU, What is the respiratory therapy Modality? Small volume Nebulization labetaloL (TRANDATE, NORMODYNE) injection 5 mg 5 mg Every 5 min PRN, intravenous, hypertension (sbp greater than 140), Starting on Sun10/22/24 at 1239, For 4 doses, Hold if SBP less than 140 mmHg, DBP less than 70 mmHg, or HR less than 60 bpm, PACU ondansetron (ZOFRAN) injection 4 mg 4 mg Once as needed, intravenous, nausea, vomiting, Starting on Sun10/22/24 at 0756, For 1 dose, For IV push, give over 2 - 5 minutes., Pre-op ondansetron (ZOFRAN) injection 4 mg 4 mg Once as needed, intravenous, nausea, vomiting, Starting on Sun10/22/24 at 1239, For 1 dose, 1st line for nausea For IV push, give over 2 - 5 minutes., PACU oxyCODONE (ROXICODONE) immediate release tablet 5 mg 5 mg Once as needed, oral, moderate pain (4-6), Starting on Sun10/22/24 at 1239, For 1 dose, Once patient is taking PO Look-alike/Sound-alike medication, PACU Given 10/22/2024 1:57 PM EDT 5 mg pregabalin (LYRICA) capsule 150 mg 150 mg Once, oral, On Sun10/22/24 at 0830, For 1 dose, Pre-op Given 10/22/2024 9:10 AM EDT 150 mg promethazine (PHENERGAN) 6.25 mg in sodium chloride 0.9 % (NS) 50 mL IVPB 6.25 mg Every 10 min PRN, intravenous, at 150 mL/hr, nausea, Starting on Sun10/22/24 at 1239, For 5 doses, ., PACU racemic epinephrine 2.25 % nebulizer solution 0.5 mL 0.5 mL Once as needed, nebulization, wheezing, For stridor, Starting on Sun10/22/24 at 1239, For 1 dose, Administer via Small Volume Nebulizer RESPIRATORY THERAPY TREATMENT , PACU sodium chloride flush 10 mL 10 mL As needed, intravenous, line care, Starting on Sun10/22/24 at 0756, Every 8 hours and PRN to flush, Pre-op documented in this encounter Active and Recently Administered Medications Times are shown in EDT. Scheduled Medication Order 10/20/2024 10/21/2024 10/22/2024 ceFAZolin (ANCEF) IVPB 2 g/50 mL D5W (premix) (COMPLETED) 2 g Once, intravenous, Administer over 30 Minutes, On Sun10/22/24 at 0830, For 1 dose, Administer within 60 minutes of incision or procedure start., Pre-op, Please choose an indication: Surgical Prophylaxis 0909 (Handoff - Prov ider: Neo Cristina RN)1114 (Given - Provider: Xena Hernandez CRNA) ceFAZolin (ANCEF) IVPB 2 g/50 mL D5W (premix) (CANCELED) 2 g Every 8 hours scheduled, intravenous, Administer over 30 Minutes, First dose on Sun10/22/24 at 1600, For 2 doses, PACU Cont. to Floor/ICU, Please choose an indication: Surgical Prophylaxis 1541 (IVPB Started - Provider: Noy Tovar RN)1611 (Due: IVPB Stopped - Provider: Noy Tovar RN) famotidine (PEPCID) tablet 20 mg (COMPLETED) 20 mg Once, oral, On Sun10/22/24 at 0830, For 1 dose, Pharmacist to renally dose if CrCl is less than 50 mL/min or on CRRT., Pre-op 0911 (Given - Provid er: Neo Cristina RN) pregabalin (LYRICA) capsule 150 mg (COMPLETED) 150 mg Once, oral, On Sun10/22/24 at 0830, For 1 dose, Pre-op 0910 (Given - Provid er: Neo Cristina RN) tranexamic acid in NaCl,iso-os 1,000 mg/100 mL (10 mg/mL) IVPB 1,000 mg (COMPLETED) 1,000 mg Once, intravenous, On Sun10/22/24 at 0830, For 1 dose, Infuse at a maximum rate of 100 mg/minute. Administer immediately preop for surgical prophylaxis: Orthopedic, Pre-op 1119 (Given - Provid er: Xena Hernandez CRNA) tranexamic acid in NaCl,iso-os 1,000 mg/100 mL (10 mg/mL) IVPB 1,000 mg (COMPLETED) 1,000 mg Once, intravenous, On Sun10/22/24 at 0830, For 1 dose, Administer over 10 Minutes. Administer Intraprocedure. To be given at beginning of wound closure if Surgeon determines necessary. For surgical prophylaxis: Orthopedic, Pre-op 1224 (Given - Provid er: Xena Hernandez CRNA) Continuous Medication Order 10/20/2024 10/21/2024 10/22/2024 electrolyte-R (NORMOSOL-R) infusion at 100 mL/hr, intravenous, Continuous, Starting on Sun10/22/24 at 0830, Pre-op 0908 (New Bag - Prov ider: Neo Cristina RN)1106 (Continued by Anesthesia - Provider: Xena Hernandez CRNA)1256 (New Bag - Provider: Xena Hernandez CRNA)1314 (Anesthesia Volume Adjustment - Provider: Xena Hernandez CRNA) PRN Medication Order 10/20/2024 10/21/2024 10/22/2024 albuterol 2.5 mg /3 mL (0.083 %) nebulizer solution 2.5 mg 2.5 mg Once as needed, nebulization, wheezing, Starting on Sun10/22/24 at 1239, For 1 dose, RESPIRATORY THERAPY TREATMENT , PACU, What is the respiratory therapy Modality? Small volume Nebulization bupivacaine-EPINEPHrine PF (MARCAINE w/EPI) 0.25 %-1:200,000 injection (CANCELED) As needed, Starting on Sun10/22/24 at 1200, Intra-op 1220 (Given - Provid er: Geoff Aragon MD) diphenhydrAMINE (BENADRYL) injection 12.5 mg 12.5 mg Once as needed, intravenous, itching, Starting on Sun10/22/24 at 1239, For 1 dose, Maximum cumulative dose 100 mg, PACU fentaNYL PF (SUBLIMAZE) injection 25 mcg (COMPLETED) 25 mcg Every 5 min PRN, intravenous, moderate to severe pain (4-10), Starting on Sun10/22/24 at 1239, For 4 doses, Maximum cumulative dose 100 mcg without speaking to anesthesia provider, PACU 1325 (Given - Provid er: Annemarie Delgado RN)1330 (Given - Provider: Annemarie Delgado RN)1335 (Given - Provider: Annemarie Delgado RN)1340 (Given - Provider: Annemarie Delgado RN) hydrALAZINE (APRESOLINE) injection 5 mg 5 mg Every 10 min PRN, intravenous, high blood pressure (specify), htn, Starting on Sun10/22/24 at 1239, For 2 doses, Hold if SBP less than 140 mmHg, DBP less than 70 mmHg, or patient is on pressor. Look-alike/Sound-alike medication, PACU HYDROmorphone (DILAUDID) injection 0.5 mg 0.5 mg Every 10 min PRN, intravenous, severe pain (7-10), Starting on Sun10/22/24 at 1239, For 4 doses, Maximum cumulative dose 2 mg without verifying with anesthesia provider Use if fentanyl ineffective at controlling pain., PACU 1423 (Given - Provid er: Annemarie Delgado RN) ipratropium-albuteroL (DUO-NEB) 0.5 mg-3 mg(2.5 mg base)/3 mL nebulizer solution 3 mL 3 mL Once as needed, nebulization, wheezing, Wheezing in patient with COPD or emphysema, Starting on Sun10/22/24 at 1239, For 1 dose, RESPIRATORY THERAPY TREATMENT Protect from Light, PACU, What is the respiratory therapy Modality? Small volume Nebulization labetaloL (TRANDATE, NORMODYNE) injection 5 mg 5 mg Every 5 min PRN, intravenous, hypertension (sbp greater than 140), Starting on Sun10/22/24 at 1239, For 4 doses, Hold if SBP less than 140 mmHg, DBP less than 70 mmHg, or HR less than 60 bpm, PACU ondansetron (ZOFRAN) injection 4 mg 4 mg Once as needed, intravenous, nausea, vomiting, Starting on Sun10/22/24 at 0756, For 1 dose, For IV push, give over 2 - 5 minutes., Pre-op ondansetron (ZOFRAN) injection 4 mg 4 mg Once as needed, intravenous, nausea, vomiting, Starting on Sun10/22/24 at 1239, For 1 dose, 1st line for nausea For IV push, give over 2 - 5 minutes., PACU oxyCODONE (ROXICODONE) immediate release tablet 5 mg (COMPLETED) 5 mg Once as needed, oral, moderate pain (4-6), Starting on Sun10/22/24 at 1239, For 1 dose, Once patient is taking PO Look-alike/Sound-alike medication, PACU 1357 (Given - Provid er: Annemarie Delgado RN) promethazine (PHENERGAN) 6.25 mg in sodium chloride 0.9 % (NS) 50 mL IVPB 6.25 mg Every 10 min PRN, intravenous, at 150 mL/hr, nausea, Starting on Sun10/22/24 at 1239, For 5 doses, ., PACU racemic epinephrine 2.25 % nebulizer solution 0.5 mL 0.5 mL Once as needed, nebulization, wheezing, For stridor, Starting on Sun10/22/24 at 1239, For 1 dose, Administer via Small Volume Nebulizer RESPIRATORY THERAPY TREATMENT , PACU sodium chloride (NS) 0.9 % irrigation solution (CANCELED) As needed, Starting on Sun10/22/24 at 1106, Intra-op 1106 (Given - Provid er: Geoff Aragon MD)1107 (Given - Provider: Geoff Aragon MD) sodium chloride flush 10 mL(Linked Group 1) 10 mL As needed, intravenous, line care, Starting on Sun10/22/24 at 0756, Every 8 hours and PRN to flush, Pre-op Linked Groups Order Group 1: Insert Peripheral IV (CANCELED) STAT, Once, On Sun10/22/24 at 0757, For 1 occurrence, Pre-op And Saline Lock IV (CANCELED) Routine, Once, On Sun10/22/24 at 0757, For 1 occurrence, Pre-op And sodium chloride flush 10 mLJump to med 10 mL As needed, intravenous, line care, Starting on Sun10/22/24 at 0756, Every 8 hours and PRN to flush, Pre-op documented in this encounter Additional Health Concerns Infection Onset Date Last Indicated Resolved Time MRSA (C) 10/16/2024 10/16/2024 documented as of this encounter Care Teams Pharmacy Salesperson Relationship Specialty Start Date End Date Dany Smith MD [address] [facility] [address] [place] [phone] PCP - General Family Medicine 10/16/24 documented as of this encounter
--- OUTSIDE RECORDS SUMMARY | 2024-10-22 11:06 | XMS_ITS | Encounter Summary ---
Author Organization [employer] ([place], [place], [place], [place]) Address [address] [place] [address] Care Team Providers Care Emissions Engineer Name Role Phone Dany Smith MD Primary Care Provider [phone] Reason for Visit * Auth/Cert (Routine) Specialty Diagnoses / Procedures Referred By Ifrah phelan Referred To Contact Diagnoses Unilateral primary osteoarthritis, right hip M16.11 Procedures MI ARTHRP ACETBLR/PROX FEM PROSTC AGRFT/ALGRFT ARTHROPLASTY, HIP, ANTERIOR APPROACH Geoff Aragon MD [address] [facility] 2nd [place] [address] Phone: tel: fax: Referral ID Status Reason Start Date Expiration Date Visits Re quested Visits Authorized [id number] 09/29/2024 1 1 Encounter Details Date Type Department Care Team (Late st Contact Info) Description 10/22/2024 11:06 AM EDT Anesthesia Event [facility] Surgery Department [address] [place] [phone] Xena Hernandez CRNA [address] [place] [address] Ifeanyi Torrez MD [address] [place] [address] Anesthesia Record Procedure Summary Procedure Name Responsible Anesthesiologist Anesthesia Start Time Anesthesia Stop Time RIGHT TOTALHIP ARTHROPLASTY, DIRECT ANTERIOR APPROACH (Right: Hip) Xena Hernandez CRNA 10/22/24 1106 10/22/24 1314 Events Date Time Event Comment 10/22/2024 1106 An Start Patient identif ied and chart reviewed. 1106 An Start Data Anesthesia mac linn and monitors checked. 1107 Pre-Induction Eval FDA anest hesia machine pre-use checkout completed. Patient status reassessed prior to start of anesthesia care. 1107 Quick Note Erroneous infor mation slaving over into epic. Epic ticket in. No solution at this point. 1112 An Induction 1113 An Intubation 1114 Anesthesia Ready 1133 an vineet now 1304 An Extubation 1305 an stop data 1313 Handoff to Receiving I compl eted my handoff to the receiving clinician during which we: 1. Identified the patient. 2. Identified the responsible provider. 3. Reviewed the pertinent medical history. 4. Discussed the surgical course. 5. Reviewed intra-op anesthesia management and issues during anesthesia. 6. Set expectations for post-procedure period. 7. Allowed opportunity for questions and acknowledgement of understanding. 1314 An Stop Meds Name Total fentaNYL (SUBLIMAZE) injection 100 mcg hydromorphone (DILAUDID) injection 1 mg/ mL 1 mg lidocaine (XYLOCAINE) injection 2% 100 m g propofol (DIPRIVAN) injection 10 mg/mL b olus 250 mg rocuronium (ZEMURON) 100 mg/10 mL inject ion 60 mg dexamethasone (PF) injection 10 mg/mL 8 mg ondansetron (ZOFRAN) injection vial 4 mg neostigmine (PROSTIGMINE) 1 mg/mL inject ion 4 mg glycopyrrolate (ROBINUL) injection 0.6 m g ketamine injection 10 mg/mL 20 mg ceFAZolin (ANCEF) IVPB 2 g/50 mL D5W (pr emix) 2 g electrolyte-R (NORMOSOL-R) infusion 213. 33 mL tranexamic acid in NaCl,iso-os 1,000 mg/ 100 mL (10 mg/mL) IVPB 1,000 mg 1,000 mg tranexamic acid in NaCl,iso-os 1,000 mg/ 100 mL (10 mg/mL) IVPB 1,000 mg 1,000 mg * Agents Name O2 N2O Air SEVOFLURANE * Blood No blood administrations on file. Lines, Drains, and Airways Type Details Placement Removal Wound 10/22/24; 1227; Inci tracy; Hip; Right 10/22/24 1227 by Roscoe Jauregui RN Peripheral IV Placement Date: 09/29 09/21; Placement Time: 0845; Orientation: Left; Location: Antecubital; Inserted by: Burke Cristina RN; Insertion attempts: 2; Securement Method: Taped; Removal Date: 10/22/24; Removal Time: 16510/22/24 0845 by Neo Cristina RN 10/22/24 1651 by Noy Tovar RN ETT Placement Date 10/22; Placement Time 1113 (created via procedure documentation); Airway Size 7.5; Airway Cuffed Yes; Removal Date 10/22/24; Removal Time 1304 10/22/24 1113 by Xena Hernandez CRNA 10/22/24 1304 by Xena Hernandez CRNA documented in this encounter Social History Tobacco Use Types Packs/Day Years Used Date Smoking Tobacco: Former Cigarettes Smokeless Tobacco: Current Comments:Quit vaping approx 45 days ago. (08/28/2024) Alcohol Use Standard Drinks/Week Comments Not Asked 0 (1 standard drink = 0.6 oz pur e alcohol) not now Sex and Gender Information Value Date Recorded Sex Assigned at Not on file Legal Sex Male 1:46 PM CDT Gender Identity Not on file Sexual Orientation Not on file documented as of this encounter OR Notes * Anesthesia Postprocedure Evaluation - Xena Hernandez CRNA - 10/22/2024 1:14 PM EDT Patient: nAson Brown Procedure Summary Date: 10/22/24 Room / Location: [facility] Anesthesia Start: 1106 Anesthesia Stop: Procedure: RIGHT TOTALHIP ARTHROPLASTY, DIRECT ANTERIOR APPROACH (Right: Hip) Diagnosis: Unilateral primary osteoarthritis, right hip (M16.11) Surgeons: Geoff Aragon MD Responsible Provider: Xena Hernandez CRNA Anesthesia Type: general ASA Status: 2 Anesthesia Type: general Vitals Value Taken Time BP 116/65 10/22/24 1312 Temp 97.8 10/22/24 1314 Pulse 86 10/22/24 1313 Resp 16 10/22/24 1314 SpO2 90 % 10/22/24 1313 Vitals shown include unfiled device data. Wt 108 kg (238 lb) BMI 30.56 kg/m?? Anesthesia Post Evaluation Patient location during evaluation: PACU Patient participation: complete - patient participated Level of consciousness: awake Pain score: 0 Pain management: adequate Multimodal analgesia pain management approach Airway patency: patent Two or more strategies used to mitigate risk of obstructive sleep apnea Cardiovascular status: stable Respiratory status: oral airway and face mask Hydration status: stable No notable events documented. Xena Hernandez CRNA 10/22/2024 1:14 PM EDT * Anesthesia Procedure Notes - Xena Hernadnez CRNA - 10/22/2024 11:23 AM EDT Associated Order(s): Intubation Intubation Authorized by: Xena Hernandez CRNA Performed by: Xena Hernandez CRNA Date/Time: 10/22/2024 11:13 AM Urgency: elective Indications and Patient Condition Indications for airway management: anesthesia and airway protection Spontaneous Ventilation: absent Sedation level: general anesthesia Preoxygenated: yes Patient position: sniffing no Mask difficulty assessment: 1 - vent by mask no Final Airway Details Final airway type: endotracheal airway Endotracheal tube type: ETT Cuffed: yes Successful intubation technique: direct laryngoscopy Facilitating devices/methods: intubating stylet Endotracheal tube insertion site: oral Blade: Clarissa Blade size: #3 ETT size (mm): 7.5 Cormack-Lehane Classification: grade I - full view of glottis Placement verified by: chest auscultation and capnometry Cuff volume (mL): 8 Measured from: teeth ETT to teeth (cm): 21 Number of attempts at approach: 1 Number of other approaches attempted: 0 * Anesthesia Preprocedure Evaluation - Gustavo Woody MD - 10/22/2024 8:21 AM EDT ANESTHESIA PREOPERATIVE EVALUATION Patient: Anson Brown Date/Time: 10/22/24 1115 Procedure: RIGHT TOTALHIP ARTHROPLASTY, DIRECT ANTERIOR APPROACH (Right) Location: [facility] Surgeons: Geoff Aragon MD There were no vitals filed for this visit. No Known Allergies Current Outpatient Medications Medication Instructions albuterol 90 [...] mg per tablet 1 tablet, oral, Daily INPATIENT MEDICATIONS ceFAZolin 2 g intravenous Once famotidine 20 mg oral Once pregabalin 150 mg oral Once tranexamic 1,000 mg intravenous Once tranexamic 1,000 mg intravenous Once Problem List as of 10/22/2024 Cardiovascular and Mediastinum HTN (hypertension) Coronary artery calcification Respiratory COPD (chronic obstructive pulmonary disease) ([facility]) Digestive GERD (gastroesophageal reflux disease) Endocrine DM (diabetes mellitus) ([facility]) Nervous and Auditory Neuropathy Musculoskeletal and Integument DDD (degenerative disc disease), lumbar Arthritis of right hip Genitourinary Kidney stone Other Preop examination Alcoholism in remission ([facility]) Hyperlipidemia Anxiety with depression Situational depression Dyslipidemia Past Surgical History: Procedure Laterality Date COLONOSCOPY KIDNEY STONE SURGERY LUMBAR FUSION with hardware. SPINAL CORD STIMULATOR IMPLANT Social History Tobacco Use Smoking status: Former Types: Cigarettes Smokeless tobacco: Current Tobacco comments: Quit vaping approx 45 days ago. (08/28/2024) Echo Results (last 7 days) No results found for the last 168 hours. Chemistry Component Value Date/Time NA 139 10/16/2024 1053 K 4.1 10/16/2024 1053 CL 108 10/16/2024 1053 CO2 27 10/16/2024 1053 BUN 26 (H) 10/16/2024 1053 CREATININE 1.12 10/16/2024 1053 Component Value Date/Time CALCIUM 10.1 10/16/2024 1053 ALKPHOS 85 10/16/2024 1053 AST 11 10/16/2024 1053 ALT 27 10/16/2024 1053 BILITOT 0.4 10/16/2024 1053 Lab Results Component Value Date WBC 6.3 10/16/2024 HGB 12.9 10/16/2024 HCT 39.1 (L) 10/16/2024 MCV 88 10/16/2024 PLT 163 10/16/2024 Clinical information reviewed: No data recorded Physical Exam Airway Mallampati: III Cardiovascular Rhythm: regular Rate: normal Dental Pulmonary - normal exam Abdominal - normal exam Other findings: Last Ozempic 10/10 (12 days ago) Teeth intact No gerd Anesthesia Plan ASA 2 general The patient is not a current smoker. intravenous induction Anesthetic plan and risks discussed with patient. Plan discussed with ENVIRONMENTAL TECHNICIAN. documented in this encounter Plan of Treatment Not on file documented as of this encounter Procedures Procedure Name Priority Date/Time Associated Diagnosis Comments ANESTHESIA INTUBATION Routine 10/22/2024 11:13 AM EDT documented in this encounter Results * AN SINGLE LUMEN INTUBATION (10/22/2024 11:13 AM EDT) Xena Newton CRNA - 10/22/2024 11:13 AM EDT Xena Hernandez CRNA 10/22/2024 11:23 AM Intubation Authorized by: Xena Hernandez CRNA Performed by: Xena Hernandez CRNA Date/Time: 10/22/2024 11:13 AM Urgency: elective Indications and Patient Condition Indications for airway management: anesthesia and airway protection Spontaneous Ventilation: absent Sedation level: general anesthesia Preoxygenated: yes Patient position: sniffing no Mask difficulty assessment: 1 - vent by mask no Final Airway Details Final airway type: endotracheal airway Endotracheal tube type: ETT Cuffed: yes Successful intubation technique: direct laryngoscopy Facilitating devices/methods: intubating stylet Endotracheal tube insertion site: oral Blade: Clarissa Blade size: #3 ETT size (mm): 7.5 Cormack-Lehane Classification: grade I - full view of glottis Placement verified by: chest auscultation and capnometry Cuff volume (mL): 8 Measured from: teeth ETT to teeth (cm): 21 Number of attempts at approach: 1 Number of other approaches attempted: 0 Xena Hernandez BLAIRE ANESTHESIA ORDERABLES Final R esult documented in this encounter Visit Diagnoses Not on filedocumented in this encounter Administered Medications Inactive Administered Medications - up to 3 most recent administrations Medication Order MAR Action Action Date Dose Rate Site ceFAZolin (ANCEF) IVPB 2 g/50 mL D5W (premix) 2 g Once, intravenous, Administer over 30 Minutes, On Sun10/22/24 at 0830, For 1 dose, Administer within 60 minutes of incision or procedure start., Pre-op, Please choose an indication: Surgical Prophylaxis Given 10/22/2024 11:14 AM EDT 2 g dexAMETHasone PF injection As needed, intravenous, Starting on Sun10/22/24 at 1112, Anesthesia Intra-op Given 10/22/2024 11:12 AM EDT 8 mg electrolyte-R (NORMOSOL-R) infusion at 100 mL/hr, intravenous, Continuous, Starting on Sun10/22/24 at 0830, Pre-op New Bag 10/22/2024 12:56 PM EDT 100 mL/hr 100 mL/hr Continued by Anesthesia 10/22/2024 11:06 AM EDT 100 mL/hr 100 mL/hr New Bag 10/22/2024 9:08 AM EDT 100 mL/hr 100 mL/hr fentaNYL PF (SUBLIMAZE) injection As needed, intravenous, Starting on Sun10/22/24 at 1112, Anesthesia Intra-op Given 10/22/2024 11:34 AM EDT 50 mcg Given 10/22/2024 11:12 AM EDT 50 mcg glycopyrrolate (ROBINUL) injection As needed, intravenous, Starting on Sun10/22/24 at 1229, Anesthesia Intra-op Given 10/22/2024 12:29 PM EDT 0.6 mg HYDROmorphone (DILAUDID) injection As needed, intravenous, Starting on Sun10/22/24 at 1210, Anesthesia Intra-op Given 10/22/2024 12:56 PM EDT 0.5 mg Given 10/22/2024 12:10 PM EDT 0.5 mg ketamine (KETALAR) injection As needed, intravenous, Starting on Sun10/22/24 at 1136, Anesthesia Intra-op Given 10/22/2024 12:34 PM EDT 10 mg Given 10/22/2024 11:36 AM EDT 10 mg lidocaine (XYLOCAINE) injection 2% As needed, intravenous, Starting on Sun10/22/24 at 1112, Anesthesia Intra-op Given 10/22/2024 11:12 AM EDT 100 mg neostigmine methylsulfate (PROSTIGMINE) injection As needed, intravenous, Starting on Sun10/22/24 at 1229, Anesthesia Intra-op Given 10/22/2024 12:29 PM EDT 4 mg ondansetron (ZOFRAN) injection As needed, intravenous, Starting on Sun10/22/24 at 1229, Anesthesia Intra-op Given 10/22/2024 12:29 PM EDT 4 mg propofol (DIPRIVAN) injection 10 mg/mL bolus As needed, intravenous, Starting on Sun10/22/24 at 1112, Anesthesia Intra-op Given 10/22/2024 12:59 PM EDT 50 mg Given 10/22/2024 11:12 AM EDT 200 mg rocuronium (ZEMURON) injection As needed, intravenous, Starting on Sun10/22/24 at 1112, Anesthesia Intra-op Given 10/22/2024 12:05 PM EDT 10 mg Given 10/22/2024 11:12 AM EDT 50 mg tranexamic acid in NaCl,iso-os 1,000 mg/100 mL (10 mg/mL) IVPB 1,000 mg 1,000 mg Once, intravenous, On Sun10/22/24 at 0830, For 1 dose, Infuse at a maximum rate of 100 mg/minute. Administer immediately preop for surgical prophylaxis: Orthopedic, Pre-op Given 10/22/2024 11:19 AM EDT 1,000 mg tranexamic acid in NaCl,iso-os 1,000 mg/100 mL (10 mg/mL) IVPB 1,000 mg 1,000 mg Once, intravenous, On Sun10/22/24 at 0830, For 1 dose, Administer over 10 Minutes. Administer Intraprocedure. To be given at beginning of wound closure if Surgeon determines necessary. For surgical prophylaxis: Orthopedic, Pre-op Given 10/22/2024 12:24 PM EDT 1,000 mg documented in this encounter Additional Health Concerns Infection Onset Date Last Indicated Resolved Time MRSA (C) 10/16/2024 10/16/2024 documented as of this encounter Care Teams Emissions Engineer Relationship Specialty Start Date End Date Dany Smith MD [address] [facility] [address] [place] [phone] PCP - General Family Medicine 10/16/24 documented as of this encounter
--- OUTSIDE RECORDS SUMMARY | 2024-10-22 11:15 | XMS_ITS | Encounter Summary ---
Author Organization [facility] ([place], [place], [place], [place]) Address [address] [place] [address] Care Team Providers Care Color Technician Name Role Phone Dany Smith MD Primary Care Provider [phone] Reason for Visit * Auth/Cert (Routine) Specialty Diagnoses / Procedures Referred By Contac t Referred To Contact Diagnoses Unilateral primary osteoarthritis, right hip M16.11 Procedures NE ARTHRP ACETBLR/PROX FEM PROSTC AGRFT/ALGRFT ARTHROPLASTY, HIP, ANTERIOR APPROACH Geoff Aragon MD [address] [address] Phone: tel: fax: Referral ID Status Reason Start Date Expiration Date Visits Re quested Visits Authorized [id number] 09/29/2024 1 1 Encounter Details Date Type Department Care Team (Late st Contact Info) Description 10/22/2024 11:15 AM EDT - 10/22/2024 1:49 PM EDT Surgery [facility] Surgery Department [address] [place] [phone] Geoff Aragon MD [facility] [place] [address] RIGHT TOTALHIP ARTHROPLASTY, DIRECT ANTERIOR APPROACH Social History Tobacco Use Types Packs/Day Years [...] Sign Reading Time Taken Comments Blood Pressure 143/85 10/22/2024 1:45 PM EDT Pulse 74 10/22/2024 1:45 PM EDT Temperature 36.3 C (97.4 F) 10/22/2024 8:30 AM EDT Respiratory Rate 16 10/22/2024 1:45 PM EDT Oxygen Saturation 91% 10/22/2024 1:45 PM EDT Inhaled Oxygen Concentration - - [...] Barley. Bulgur wheat. Millet. Bran muffins. Popcorn. [place] wafer crackers. Vegetables Sweet potatoes. Spinach. Kale. Artichokes. Cabbage. Broccoli. Green peas. Carrots. Squash. Fruits Berries. Pears. Apples. Oranges. Avocados. Prunes and raisins. Dried figs. Meats and Other Protein Sources [place], kidney, sheldon, and soybeans. Split peas. Lentils. [...] 1 stefania has 11 g of protein. [place] seeds -- 1 oz has 5.5 g [...] the floor. Place frequently used items in vsjr-qs-qedqx places Keep electrical cables out of the [...] Handling livestock. Using the bathroom. Using household pulp drier firer or toxic chemicals. Touching or taking out [...] to keep your hands on the hand apple picker. Make sure you are following any weight-bearing [...] walker by pressing down on the hand apple picker. 4. If the walker is steady, press [...] walker by pressing down on the hand apple picker. 4. If the walker is steady, press [...] Everywhere. * General Anesthesia Adult Care After ([place]) documented in this encounter Medications at Time [...] Santamaria RN - 10/20/2024 2:13 PM EDT [address] in [facility] is temporally closed. Called and spoke to the patient about which other outpatient PT he would like to use. Patient choose [facility] outpatient PT in [place]. Phone . Fax order to . Patient [...] placed in the supine position on the Bailey table bony prominences padded with sterile prep [...] 1 HOUR Routine 10/22/2024 12:30 PM EDT NE ARTHRP ACETBLR/PROX FEM PROSTC AGRFT/ALGRFT 10/22/2024 11:06 AM EDT Unilateral primary osteoarthritis, right hip Case Notes EXACTECH, HANA TABLE, C-ARM NOVA GLUCOSE POC Routine 10/22/2024 7:59 AM EDT EKG-SCANNED 10/22/2024 documented in this encounter Results * (ABNORMAL) Glucose, Nova Meter (10/22/2024 1:13 PM EDT) POC-GLUCOSE 218(H) 70 - 110 mg/dL 10/22/2024 1:15 PM EDT [facility] Comment:In the event of poor peripheral blood flow, venous or arterial blood should be used due to the potential of erroneous results. Credit Report Checker [id number] 10/22/2024 1:15 PM EDT [facility] Blood WHOLE BLOOD / Unknown 10/22/2024 1:13 PM EDT 10/22/2024 1:15 PM EDT Narrative [facility] - 10/22/2024 1:15 PM EDT Credit Report Checker ID is - [id number] us Geoff Aragon MD POINT OF CARE TEST ORDERABLES Fi nal Result [facility] [address] [phone] * Fluoroscopy less than 1 hour (10/22/2024 [...] - 110 mg/dL 10/22/2024 8:03 AM EDT [facility] Comment:In the event of poor peripheral blood flow, venous or arterial blood should be used due to the potential of erroneous results. Credit Report Checker [id number] 10/22/2024 8:03 AM EDT [facility] Blood WHOLE BLOOD / Unknown 10/22/2024 7:59 AM EDT 10/22/2024 8:03 AM EDT Narrative [facility] - 10/22/2024 8:03 AM EDT Credit Report Checker ID is - [id number] Geoff Aragon MD POINT OF CARE TEST ORDERABLES Fi nal Result [facility] [address] [phone] * EKG-SCANNED (10/22/2024) Narrative 10/22/2024 Ordered by an unspecified provider. us Default Scanning Provider SCAN ORDERS Final Result documented in this encounter Visit Diagnoses Diagnosis Unilateral primary osteoarthritis, right hip documented in this encounter Administered Medications Inactive Administered [...] bupivacaine-EPINEPHrine PF (MARCAINE w/EPI) 0.25 %-1:200,000 injection As needed, Starting on Sun10/22/24 at 1200, Intra-op Given 10/22/2024 12:20 PM EDT 60 mLs ceFAZolin (ANCEF) IVPB 2 g/50 mL D5W [...] PACU Given 10/22/2024 2:23 PM EDT 0.5 m g ipratropium-albuteroL (DUO-NEB) 0.5 mg-3 mg(2.5 mg base)/3 [...] sodium chloride (NS) 0.9 % irrigation solution As needed, Starting on Sun10/22/24 at 1106, Intra-op Given 10/22/2024 11:07 AM EDT 3,000 mLs Given 10/22/2024 11:06 AM EDT 3,000 mLs sodium chloride flush 10 mL 10 mL [...] Pre-op, Please choose an indication: Surgical Prophylaxis 09 (Handoff - Prov ider: Neo Cristina RN)1114 (Given - Provider: Xena Hernandez CRNA) ceFAZolin (ANCEF) IVPB 2 g/50 mL D5W (premix) (CANCELED) 2 g Every 8 hours scheduled, intravenous, Administer over 30 Minutes, First dose on Sun10/22/24 at 1600, For 2 doses, PACU Cont. to Floor/ICU, Please choose an indication: Surgical Prophylaxis 1541 (IVPB Started - Provider: Noy Tovar, RAFIQ)1611 (Due: IVPB Stopped - Provider: Noy Tovar [...] Sun10/22/24 at 0830, For 1 dose, Pre-op 09 (Given - Provid er: Neo Cristina RN) [...] documented as of this encounter Care Teams Color Technician Relationship Specialty Start Date End Date Dany Smith MD [address] [facility] [address] [place] [id number] PCP - General Family Medicine 10/16/24 documented as of this encounter
--- OUTSIDE RECORDS SUMMARY | 2024-11-17 06:45 | XMS_ITS ---
Author Organization [facility] Address [address] [facility] [address] [place] [id number] Care Team Providers Care Assistant Merchandiser Name Role Phone Burke Smith Primary Care Provider Haley Hester [phone] REASON FOR VISIT depression Encounters Encounter Location Date Provider Diagnosis [facility] [address] [place] [id number] 11/17/2024 Haley Hester Plan Of Treatment Next Appt Details Provider Name:Burke Waller er, 11/27/2024 03:30:00 PM, [address], [place], [place], [phone], Provider Name:Burke Waller er, 01/12/2025 10:45:00 AM, [address], [place], [place], [phone], Progress Notes * NAOMIARRON CAPPSDOB:[birth year] (59 yo M)Acc No.[id number]:11/17/2024 Progress Notes Patient: ARRON JACKSON Provider: FRANKIE Izquierdo :1965 A ge:59 Y S ex:Male Date:11/17/2024 Address:[address], [place] Pcp:Burke Smith Subjective: * Chief Complaints: * 1 . Depression. * Medical History: Objective: * Vitals: Assessment: Plan: * Treatment: * Images: Billing Information: * Visit Code: * Procedure Codes: * Electronic signature of Stephanie Hester APRN on 11/27/2024 at 09:46 AM EDT Sign off status: Pending * Provider: FRANKIE Izquierdo Date: 11/17/2024 Generated for Cecilio fofana/Blake/Ernesto on: 11/27/2024 09:46 AM EDT
--- OUTSIDE RECORDS SUMMARY | 2024-11-20 06:30 | XMS_ITS ---
Author Organization [facility] Address [address] [place] [id number] Care Team Providers Care Secretary Book Keeper Name Role Phone Burke Smith Primary Care Provider Hina Odell Unavailable [phone] Allergies No Known Allergies REASON FOR VISIT patient thinks he is depressed Medications Medication SIG (Take, Route, Frequency, Duration) Notes Start Date End Date Status Albuterol Sulfate HFA 108 (90 Base) MCG/ACT INHALE 2 PUFF(S) BY MOUTH EVERY 6 HOURS NEEDED; Duration: 25 Active Omeprazole 40 MG TAKE 1 CAPSULE BY [facility] ONCE DAILY; Duration: 30 Active Celecoxib 200 MG 1 capsule Orally Onc e a day; Duration: 30 days Active metFORMIN HCl 500 MG 1 tablet with a fartun l Orally Once a day; Duration: 30 days Active Zoloft 100 MG 1/2 tab x 2 weeks th en increase to 1 tab daily Orally Once a day; Duration: 30 days 11/20/2024 Active Neurontin 600 MG 1 tablet Orally Four times a day; Duration: 30 days 10/17/2024 Active Atorvastatin Calcium 20 MG 1 tablet Orally Once a day; Duration: 90 days Active Triamterene-HCTZ 37.5-25 MG 1 tab(s) Orally Once a day; Duration: 90 days Active Tamsulosin HCl 0.4 MG TAKE 1 CAPSULE BY MOUTH AT BEDTIME; Duration: 30 Active hydrOXYzine HCl 25 MG 1 tab Orally 4 consuelo es a day, prn 11/20/2024 Active Ozempic (1 MG/DOSE) 4 MG/3ML INJECT 1 MG ONCE A WEEK SUBCUTANEOUSLY Subcutaneous once a week Active Fluticasone Propionate 50 MCG/ACT as directed in each nostril once a day; Duration: 30 day(s) 03/06/2022 Active Mupirocin 2 % 1 application Phd Intern ally Twice a day; Duration: 5 day(s) 05/12/2024 Active Problems Problem Type SNOMED Code ICD Code Onset Dates Problem Status W/U Status Risk Notes Problem Mixed anxiety and depressive disorder (455700059) Depression with anxiety (F41.8) Active confirmed Problem Insomnia disorder related to another mental disorder (65849357) Psychophysiological insomnia (F51.04) Active confirmed Vital Signs Blood pressure systolic 130 mm Hg 11/21/19 25 Blood pressure diastolic 70 mm Hg 025 Heart Rate 98 /min 11/20/2024 Height 73 in 11/20/2024 Weight 230.6 lbs 11/20/2024 BMI 30.42 kg/m2 11/20/2024 Encounters Encounter Location Date Provider Diagnosis [facility] [address] [facility] [address] [place], [place] [id number] 11/20/2024 Hina Odell Depression with anxi ety F41.8 and Psychophysiological insomnia F51.04 Assessments Encounter Date Diagnosis (ICD Code) Assessment Notes Treatment Notes Treatment Clinical Notes Section Notes 11/20/2024 Depression with anxi ety (ICD-10 - F41.8) Patient will start on 1/2 tab daily x 2 weeks and then increase to a whole tab daily. Will stop the trazodone and try hydroxyzine. 11/20/2024 Psychophysiological insomnia (ICD-10 - F51.04) Plan Of Treatment Medication Medication Name Sig Start Date Stop Date Notes traZODone HCl 50 MG 1 tablet at bedtime as needed Orally Once a day Zoloft 100 MG 1/2 tab x 2 weeks th en increase to 1 tab daily Orally Once a day; Duration: 30 days 11/20/2024 hydrOXYzine HCl 25 MG 1 tab Orally 4 times a day, prn 10/29 Treatment Notes Assessment Notes Depression with anxiety Patient will sta rt on 1/2 tab daily x 2 weeks and then increase to a whole tab daily. Will stop the trazodone and try hydroxyzine. Next Appt Details Follow Up: 1 Week, Reason: Provider Name:Burke kent, 11/27/2024 03:30:00 PM, [address], [address], [place], [id number], Provider Name:Burke CurryDamon Sridhar er, 01/12/2025 10:45:00 AM, [address], [address], [place], [id number], Progress Notes * ARRON BROWNDOB:[birth year] (59 yo M)Acc No.[id number]:11/20/2024 Progress Notes Patient: ARRON JACKSON Provider: MIA Benitez :1965 A ge:59 Y S ex:Male Date:11/20/2024 Address:[address] [place] [address] [id number] Pcp:Burke Smith Subjective: * Chief Complaints: * 1 . Patient thinks he is depressed. * HPI: P sychology: 59 year old male presents with c/o depression P t thinks he may be depressed. Pt states that for about 3 weeks he has not wanted to leave his house and does not feel like doing anything. He is also anxious. He used to take zoloft and feels like he may need to be started back on it.. * ROS: D ERMATOLOGY: no R ivory. [...] - dr Harding 09/2020, colonoscopy, Dr. Staton, [facility] , , [facility] 10/22/2024. * Hospitalization/Major Diagno stic Procedure: H [...] application Externally Twice a day , Taking Ozempic (1 MG/DOSE) 4 MG/3ML [...] as needed Orally Once a day , Taking Celecoxib 200 MG Capsule 1 capsule Orally Once a day , Taking Albuterol Sulfate HFA 108 (90 Base) MCG/ACT Aerosol Solution INHALE 2 PUFF(S) BY MOUTH EVERY 6 HOURS NEEDED , Taking Omeprazole 40 MG Capsule Delayed Release TAKE 1 CAPSULE BY MOUTH ONCE DAILY , Taking metFORMIN HCl 500 MG Tablet 1 tablet with a meal Orally Once a day , Medication List reviewed and reconciled with the patient * Allergies: N .K.D.A. Objective: * Vitals: W t: 230.6, Temp: 97.9, BP: 130/70, HR: 98, Nurse: pe, Ht: 73, BMI:30.42. * Examination: P sychology: General Appearance: N AD. G rooming : a dequate.?Eye contact : d ecreased. M ood : d epressed, anxious, tearful. H eart: R SR.?Lungs: c lear to auscultation. N eurologic Exam: I ntact, gait normal. ? Assessment: * Assessment: 1. D epression with anxiety - F41.8 (Primary) 2 . P sychophysiological insomnia - F51.04 Plan: * Treatment: * Procedure Codes: 1 036F TOBACCO NON-USER, 3075F SYST BP GE 130 - 139MM HG, 3078F DIAST BP < 80 MM HG * Follow Up: 1 Week * Images: Billing Information: * Visit Code: 93030 Office Visit, Est Pt., Level 3. * Procedure Codes: 1036F TOBACCO NON-USER. 3075F SYST BP GE 130 - 139MM HG. 3078F DIAST BP < 80 MM HG. * Electronic signature of MIA Mccullough on 11/27/2024 at 09:47 AM EDT Sign off status: Pending * Provider: MIA Benitez Date: 11/20/2024 Generated for Cecilio fofana/Blake/Viralransmitting on: 11/27/2024 09:47 AM EDT History and Physical Notes * HPI (History of Present Illness) Category Sub-Category Detail Notes Category Not es Psychology depression Pt thinks he may be depressed. Pt states that for about 3 weeks he has not wanted to leave his house and does not feel like doing anything. He is also anxious. He used to take zoloft and feels like he may need to be started back on it. Examination Category Sub-Category Detail Notes Category Not es Psychology Heart: RSR Lungs: clear to auscultatio n General Appearance: NAD Neurologic Exam: Intact, gait normal Grooming : adequate Eye contact : decreased Mood : depressed, anxious, tearful
--- OUTSIDE RECORDS SUMMARY | 2024-11-27 09:45 | XMS_ITS | Encounter Summary ---
Author Organization Healthcare Address [address] [place] [address] Care Team Providers Care Milling Machine Operator Name Role Phone Dany Smith MD Primary Care Provider [phone] Encounter Details Date Type Department Care Team (Late st Contact Info) Description 02/05/2024 Orders Only External Location [address] [place] [address] Provider, External Social History Tobacco Use Types [...] on filedocumented in this encounter Care Teams Milling Machine Operator Relationship Specialty Start Date End Date Dany Smith MD [address] [place] [address] PCP - General 05/07/24 documented as of this encounter
--- OUTSIDE RECORDS SUMMARY | 2024-11-27 09:45 | XMS_ITS | Encounter Summary ---
Author Organization [facility] Address [address] [place] [address] Care Team Providers Care Sewing Machine Repairer Helper Name Role Phone Dany Smith MD Primary Care Provider [phone] Reason for Referral * Consultation (Routine) - Closed Specialty Diagnoses / Procedures Referred By Ifrah phelan Referred To Contact Orthopaedic Surgery Diagnoses Primary osteoarthritis of right hip Alistair Rivas DO [address] [place] [address] Phone: tel: fax: Jose Ang MD [address] [address] Phone: tel: fax: Referral ID Status Reason Start Date Expiration Date Visits Re quested Visits Authorized [id number] Closed 05/06/2024 11/05/2025 1 1 Encounter Details Date Type Department Care Team (Latest Contact Info) Description 05/06/2024 Community [facility] [address] [place] [address] Alistair Rivas DO [address] [place] [address] Primary osteoarthritis of right hip (Primary Dx) [...] Primary documented in this encounter Care Teams Sewing Machine Repairer Helper Relationship Specialty Start Date End Date Dany Smith MD [address] [place] [address] PCP - General 05/07/24 documented as of this encounter
--- OUTSIDE RECORDS SUMMARY | 2024-11-27 09:46 | XMS_ITS | Patient Health Record ---
[facility] [address] [place] [id number] Care Team Providers Care Waffle Machine Operator Name Role Phone Burke Smith Primary Care Provider [phone] Klaudia Potts Unavailable [phone] Suraj Wiseman Unavailable [phone] Haley Hester Unavailable [phone] Hina Odell Unavailable [phone] Allergies No Known Allergies Results Component Value Reference Range Notes Glycohemoglobin A1c (in hous e) Reviewed date:11/10/2024 02:31:57 PM Interpretation: Performing Lab: Notes/Report: glycohemoglobin 6.9% 5 - 6.5 % P-Culture, Wound Aerobic w/G debbie Stain Reviewed date:01/30/2024 04:09:19 PM Interpretation:No growth Performing Lab: Notes/Report: Test performed by [facility], [employer] [address] [place] [address] , [address], [place] [address] Colton Cruz MD, Office Support Clerk CLIA: [id number] Specimen Source Elbow - left elbow Gram Stain See Below Rare Polymorphonuclear leukocytes No organisms seen Culture, Wound Aerobic w/Gram Stain See Below Preliminary Report : No growth, reincubate Final Report : No growth CBC Venipuncture (in house) Reviewed date:01/18/2024 12:14:54 [...] - 38 platlet 159 100 - 400 P-Sed Rate (ESR) Reviewed date:01/22/2024 03:47:32 PM Interpretation:21 Performing Lab: Notes/Report: Test performed by [facility] [address] [place] [address] , [address], [place] [address] Colton Cruz MD, Office Support Clerk CLIA: [id number] Erythrocyte Sedimentation Rate (ESR), Automated 21 <21 mm/hr P-Uric Acid Reviewed date:01/22/2024 03:47:20 PM Interpretation:Normal Performing Lab: Notes/Report: Test performed by [facility] [address] [place] [address] , [address], [place] [address] Colton Cruz MD, Office Support Clerk CLIA: [id number] Uric Acid 8.0 3.4-8.0 mg/dL X ray : Elbow, left Reviewed date:01/22/2024 10:55:04 AM Interpretation:soft tissue swelling, mild degenerative changes Performing Lab: Notes/Report: soft tissue swelling, mild degenerative changes Glycohemoglobin A1c (in hous e) Reviewed date:09/18/2024 12:35:55 PM Interpretation:7.8% Performing Lab: Notes/Report: 7.8% glycohemoglobin 7.8% 5 - 6.5 % CT SCAN : CHEST, LUNG CANCER SCREENING LOW DOSE Reviewed date:10/10/2024 11:27:07 AM Interpretation: Performing Lab: Notes/Report: CBC Venipuncture (in house) Reviewed date:09/11/2024 03:53:42 [...] Interpretation: Performing Lab: Notes/Report: Test performed by [facility] [address] [place] [address] [address], [place] [address] Colton Cruz MD, Office Support Clerk CLIA: [id number] Sodium 141 135-145 mmol/L Potassium 4.2 3.5-5.3 [...] Interpretation: Performing Lab: Notes/Report: Test performed by [facility] [address] [place] [address] [address], [place] [address] Colton Cruz MD, Office Support Clerk CLIA: [id number] Cholesterol 178 <200 mg/dL Triglycerides 193 <150 [...] developed and its performance characteristics determined by [facility]. It has not been cleared or approved by the US Food and Drug Administration. This test was performed in a CLIA certified laboratory and is intended for clinical purposes. Performed By: [facility] [address] [place] [address] Office Support Clerk: Anders Wooten MD, PhD CLIA Number: [id number] Cotinine, Serum/Plasma <5 Glycohemoglobin A1c (in hous e) Reviewed date:05/12/2024 12:08:40 PM Interpretation: Performing Lab: Notes/Report: glycohemoglobin 6.9% 5 - 6.5 % P-Comprehensive Metabolic Pa rob (CMP) Reviewed date:05/14/2024 08:42:20 AM Interpretation:gluc 188, bun 27 Performing Lab: Notes/Report: Test performed by [facility], [address] , [address], [place] [address] Colton Cruz MD, Office Support Clerk CLIA: [id number] Sodium 138 135-145 mmol/L Potassium 4.1 3.5-5.3 [...] 3.3 Performing Lab: Notes/Report: Test performed by [facility], [employer] [address] [place] [address] , [address], [place] [address] Colton Cruz MD, Office Support Clerk CLIA: [id number] Cholesterol 187 <200 mg/dL Triglycerides 141 <150 [...] Normal Performing Lab: Notes/Report: Test performed by [facility] [address] [place] [address] , [address], [place] [id number] Colton Cruz MD, Office Support Clerk CLIA: [id number] PSA 0.32 <4.00 ng/mL Please note this is an ultrasensitive PSA assay with a lower limit of detection of 0.014 ng/mL. This test is performed by the [facility] ECLIA methodology. Values obtained with different assay methods or kits cannot be directly compared. P-Microalbumin/Creatinine, R andom Urine Sample Reviewed date:05/14/2024 08:42:20 AM Interpretation: Normal Performing Lab: Notes/Report: Test performed by [facility] [address] [place] [address] , [address], [place] [address] Colton Cruz MD, Office Support Clerk CLIA: [id number] Albumin/Creatinine Ratio, Urine 6 0-30 ug/mg Microalbumin, Urine, Random 0.7 Creatinine, Urine 112.6 Reason For Referral Diagnosis 1 Coronary artery calc ification (I25.10) Referral Organization [facility] Referring Provider First Name Hina Referring Provider Last Name Jose R Referring Provider Speciality Physician Geoscience Laboratory Technician Referred Provider Specialty Cardiovascul ar Disease General Notes Kailey Temple 2024 08:43:10 AM > faxed to [facility] Cardiology Referral Priority Routine Medications Medication SIG [...] days Active Mupirocin 2 % 1 application Sole Inker ally Twice a day; Duration: 5 day(s) [...] W/U Status Risk Notes Problem Weight gain (010086028) Weight gain (R63.5) Active confirmed Problem Hypokalemia (85277100) Hypokalemia (E87.6) Active confirmed Problem Essential hypertension (76394728) Essential hypertension (I10) Active confirmed Problem Osteoarthritis of knee (020015244) DJD (degenerative joint disease) of knee (M17.9) Active confirmed Problem Cervical radiculopathy (52298973) Cervical radiculopathy (M54.12) Active confirmed Problem Mixed anxiety and depressive disorder (394245387) Depression with anxiety (F41.8) Active confirmed Problem BMI 30+ - obesity (638606915) BMI 32.0-32.9,adult (Z68.32) Active confirmed Problem Acute constipation (669050093) Acute constipation (K59.00) Active confirmed Problem Acute exacerbation of chronic obstructive airways disease (893470311) COPD exacerbation (J44.1) Active confirmed Problem Actinic keratosis (115195) Actinic keratosis (L57.0) Active confirmed Problem Mixed hyperlipidemia (265225360) Mixed hyperlipidemia (E78.2) Active confirmed Problem Primary insomnia (5051023) Primary insomnia (F51.01) Active confirmed Problem Osteoarthritis of hip (664430166) Osteoarthritis of hip, unspecified (M16.9) Active confirmed Problem Degeneration of cervical intervertebral disc (13102207) Degenerative disc disease, cervical (M50.30) Active confirmed Problem Disorder of prostate (47262060) Benign prostatic disease (N42.9) Active confirmed Problem Reactive depression (situational) (85465750) Situational depression (F43.21) Active confirmed Problem Chronic fatigue syndrome (08180102) Chronic fatigue (R53.82) Active confirmed Problem COPD - Chronic obstructive pulmonary disease (63422026) Chronic obstructive pulmonary disease, unspecified COPD type (J44.9) Active confirmed Problem Insomnia disorder related to another mental disorder (19287056) Psychophysiological insomnia (F51.04) Active confirmed Problem Carpal tunnel syndrome of left wrist (625821286893532) Carpal tunnel syndrome of left wrist (G56.02) Active confirmed Problem Dyslipidemia (446692744) Dyslipidemia (E78.5) Active confirmed Problem Low back pain (163812647) Acute left-sided low back pain without sciatica (M54.5) Active confirmed Problem Type II diabetes mellitus without complication (062459801) Type 2 diabetes mellitus without complication, without long-term current use of insulin (E11.9) Active confirmed Problem Pain in right sacroiliac joint (4512857191235715 7) Pain of right sacroiliac joint (M53.3) Active confirmed Problem Atrophic gastritis (05656900) Chronic gastritis without bleeding, unspecified gastritis type (K29.50) Active confirmed Problem Benign prostatic hypertrophy without outflow obstruction (306571493) Benign prostatic hyperplasia without lower urinary tract symptoms (N40.0) Active confirmed Problem History of right hip replacement (2427360637396045 ) Status post right hip replacement (Z96.641) Active confirmed Problem Anxiety depression (012321295) Anxiety with depression (F41.8) Active confirmed Problem Arthritis of right hip (1619272879538777 ) Arthritis of right hip (M16.11) Active confirmed Problem Osteoarthritis of knee (159913791) Arthropathy of knee (M17.10) Active confirmed Problem Allergic rhinitis (32764920) Allergic rhinitis, unspecified seasonality, unspecified trigger (J30.9) Active confirmed Problem Neck sprain (274197681) Neck sprain, initial encounter (S13.9XXA) Active confirmed Problem Chronic alcoholism in remission (390241062) Alcoholism in remission (F10.21) Active confirmed Problem Atherosclerotic heart disease of [place] coronary artery without angina pectoris (250278812700444) Coronary artery calcification (I25.10) Active confirmed Vital Signs Heart Rate 98 /min 11/20/2024 Blood pressure diastolic 70 mm Hg 11/20/2024 Height 73 in 11/20/2024 Blood pressure systolic 130 mm Hg 11/20/2024 Weight 230.6 lbs 11/20/2024 BMI 30.42 kg/m2 11/20/2024 Encounters Encounter Location Date Provider Diagnosis [facility] [address] [place], [place] [id number] 01/17/2024 Hina Crowdy Cellulitis of left e lbow L03.114 and Left elbow pain M25.522 [facility] [address] [place], [place] [id number] 01/18/2024 Suraj Conde Left arm cellulitis L03.114 and Pain in left arm M79.602 [facility] [address] [place], [place] [id number] 01/24/2024 Burke Smith Olecranon bursitis o f left elbow M70.22 [facility] [address] [place], [place] [id number] 02/04/2024 Haley Hester Left arm cellulitis L03.114 [facility] [address] [place] [id number] 05/12/2024 Burke Smith Type 2 diabetes sae itus without complication, without long-term current use of insulin E11.9 ; Benign prostatic disease N42.9 ; Essential hypertension I10 ; Alcoholism in remission F10.21 ; Arthritis of right hip M16.11 ; History of tobacco use Z87.891 ; Scalp abscess L02.811 and Mixed hyperlipidemia E78.2 [facility] [address] [facility] [address] [place], [place] [id number] 07/18/2024 Burke Smith DJD (degenerative adolph int disease) of knee M17.9 [facility] [address] [place], [place] [id number] 08/12/2024 R Gopi Potts Tobacco use disorder Z72.0 and Osteoarthritis of hip, unspecified M16.9 [facility] [address] [place], [place] [id number] 09/10/2024 Hina Odell Osteoarthritis of hi p, unspecified M16.9 ; Type 2 diabetes mellitus without complication, without long-term current use of insulin E11.9 ; Essential hypertension I10 ; Mixed hyperlipidemia E78.2 ; Anxiety with depression F41.8 ; Chronic obstructive pulmonary disease, unspecified COPD type J44.9 ; Tobacco use disorder Z72.0 ; Primary insomnia F51.01 and BMI 32.0-32.9,adult Z68.32 [facility] [address] [place], [place] [id number] 11/10/2024 Burke Smith Type 2 diabetes sae itus without complication, without long-term current use of insulin E11.9 and Status post right hip replacement Z96.641 [place] [address] [address] [place], [place] [id number] 11/20/2024 Hina Odell Depression with anxi ety F41.8 and Psychophysiological insomnia F51.04 [facility] [address] [place] [id number] 11/25/2024 Burke Smith [facility] [address] [place], [place] [id number] 12/18/2023 J Damon Smith [facility] [address] [place], [place] [id number] 01/22/2024 Hina Odell [facility] [address] [place], [place] [id number] 02/05/2024 J Damon Smith [facility] [address] [place], [place] [id number] 02/20/2024 J Damon Smith Degenerative disc di sease, cervical M50.30 [facility] [address] [place], [place] [id number] 02/20/2024 J Damon Smith [facility] [address] [place] [id number] 03/19/2024 J Damon Smith [facility] [address] [place] [id number] 05/09/2024 J Damon Smith [facility] [address] [place] [id number] 05/14/2024 J Damon Smith [facility] [address] [place], [place] [id number] 06/19/2024 J Damon Smith Degenerative disc di sease, cervical M50.30 [facility] [address] [place], [place] [id number] 07/14/2024 J Damon Smith [facility] [address] [place], [place] [id number] 07/28/2024 J Damon Smith [facility] [address] [place], [place] [id number] 08/25/2024 J Damon Smith [facility] [address] [place], [place] [id number] 09/15/2024 Hina Odell [facility] [address] [place] [id number] 09/18/2024 Hinachris Odell [facility] [address] [place], [place] [id number] 10/10/2024 Hina Odell [facility] [address] [place], [place] [id number] 10/14/2024 Burke Smith Degenerative disc di sease, cervical M50.30 [facility] [address] [place], [place] [id number] 10/17/2024 Burke Smith Primary insomnia F51 .01 [address], [place], [id number], Provider Name:Burke Jose [facility] er, 01/12/2025 10:45:00 AM, [address], [place], [id number], Insurance Providers Payer Name Payer Address Payer Phone Subscriber Number Group Number Insured Name Patient Relationship to Insured Coverage Start Date Coverage End Date [facility] [address] [place], [place] [id number] ARRON SALGADO Self - patient is [...] - dr Harding 09/2020 colonoscopy, Dr. Staton, [facility] , [facility] 10/22/2024 Hospitalization History Reason Date(Month/Year) [facility] ER Right hand/arm red, swollen, and infected 09/26/2019
--- OUTSIDE RECORDS SUMMARY | 2024-11-27 09:46 | XMS_ITS | Encounter Summary ---
Author Organization Healthcare Address [address] [place] [address] Care Team Providers Care Raker Buffing Wheel Name Role Phone Dany Smith MD Primary Care Provider [phone] Encounter Details Date Type Department Care Team (Late st Contact Info) Description 09/06/2023 Orders Only External Location [address] [place] [address] Provider, External Social History Tobacco Use Types [...] on filedocumented in this encounter Care Teams Raker Buffing Wheel Relationship Specialty Start Date End Date Dany Smith MD [address] [place] [address] PCP - General 05/07/24 documented as of this encounter
--- OUTSIDE RECORDS SUMMARY | 2024-11-27 09:46 | XMS_ITS | Encounter Summary ---
Author Organization Healthcare Address [address] [place] [address] Care Team Providers Care Oil Furnace Installer Name Role Phone Dany Smith MD Primary Care Provider Encounter Details Date Type Department Care Team (Late st Contact Info) Description 10/03/2023 Orders Only External Location [address] [place] [address] Alistair Rivas DO [address] [place] [id number] Social History Tobacco Use Types Packs/Day Years [...] on filedocumented in this encounter Care Teams Oil Furnace Installer Relationship Specialty Start Date End Date Dany Smith MD [address] [place] [address] PCP - General 05/07/24 documented as of this encounter
--- OUTSIDE RECORDS SUMMARY | 2024-11-27 09:46 | XMS_ITS | Clinical Summary ---
Author Organization [facility] Address [address] [place] [address] Care Team Providers Care Mold Sprayer Name Role Phone Dany Smith MD Primary Care Provider [phone] Allergies No known active allergies Medications gabapentin [...] (2 of 2 - PCV) 08/22/2018 08/22/2017 [id number] Vaccine (3 - Moderna risk series) 09/22/2020 [...] patient's age to complete this topic Insurance [facility] Care Teams Mold Sprayer Relationship Specialty Start Date End Date Dany Smith MD [address] [place] [address] PCP - General 05/07/24
--- OUTSIDE RECORDS SUMMARY | 2024-11-27 09:46 | XMS_ITS | Referral Summary ---
Author Organization [employer] ([place], [place], [place], [place]) Address [address] [place] [address] Care Team Providers Care Coding Team Lead Name Role Phone Dany Smith MD Primary Care Provider [phone] Encounters Date Type Department Care Team Description 10/22/2024 11:15 AM EDT - 10/22/2024 1:49 PM EDT Surgery [facility] Surgery Department [address] [place] [address] Geoff Aragon MD RIGHT TOTALHIP ARTHROPLASTY, DIRECT ANTERIOR APPROACH 10/22/2024 11:06 AM EDT Anesthesia Event [facility] Surgery Department [address] [place] [address] Xena Hernandez CRNA Littles, Joel T, MD 10/22/2024 7:46 AM EDT - 10/22/2024 4:52 PM EDT Hospital Encounter [facility] Surgery Department [address] [place] [address] Geoff Aragon MD Discharge Disposition: Home or Self Care 10/21/2024 Surgery Prep [facility] Surgery Department [address] [place] [address] Geoff Aragon MD 10/20/2024 Travel 10/16/2024 Travel 10/16/2024 10:42 AM EDT - 10/16/2024 11:59 PM EDT Hospital Encounter [facility] Preadmission Testing [address] [facility] [address] [place] [address] Dany Smith MD Preop examination (Primary Dx); 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 Active celecoxib (CeleBREX) 200 MG capsule Take 1 capsule (200 mg total) by mouth daily. Active triamterene-hyd roCHLOROthiazid e (MAXZIDE-25) 37.5-25 mg per tablet Take 1 tablet by mouth daily. Active tamsulosin (FLOMAX) 0.4 mg cap 24 hr capsule Take 1 capsule (0.4 mg total) by mouth daily. Active omeprazole (PriLOSEC) 40 MG capsule Take 1 capsule (40 mg total) by mouth daily. Active mupirocin (BACTROBAN) 2 % ointment Apply 1 Application topically 3 (three) times daily. Active albuterol 90 mcg/actuation inhaler Inhale 2 puffs by mouth every 6 (six) hours as needed for shortness of breath. Active metFORMIN (GLUCOPHAGE) 500 MG tablet Take 1 tablet (500 mg total) by mouth daily. Active gabapentin (NEURONTIN) 600 MG tablet Take 1 tablet (600 mg total) by mouth 3 (three) times daily. Active atorvastatin (LIPITOR) 20 MG tablet Take 1 tablet (20 mg total) by mouth daily. Active traZODone (DESYREL) 50 MG tablet Take 1 tablet (50 mg total) by mouth nightly. Active ibuprofen (MOTRIN) 200 MG tablet Take 1 tablet (200 mg total) by mouth every 6 (six) hours as needed for pain. Active naproxen (NAPROSYN) 220 MG tablet Take 1 tablet (220 mg total) by mouth 2 (two) times daily with breakfast and dinner. Active Active Problems Problem Noted Date Diagnosed Date Anxiety with depression 10/22/2024 Situational depression 10/22/2024 Coronary artery calcification 10/22/2024 Dyslipidemia 10/22/2024 Arthritis of right hip 10/22/2024 Preop examination 10/16/2024 Alcoholism in remission 10/16/2024 DM (diabetes mellitus) 10/16/2024 Hyperlipidemia 10/16/2024 DDD (degenerative disc disease), lumbar 10/17/19 COPD (chronic obstructive pulmonary disease) Neuropathy 10/16/2024 GERD (gastroesophageal reflux disease) Kidney stone 10/16/2024 HTN (hypertension) 10/16/2024 Social History Tobacco Use Types Packs/Day Years Used Date Smoking Tobacco: Former Cigarettes Smokeless Tobacco: Current Tobacco Cessation:Counseling Given: Not Answered Comments:Quit vaping [...] (238 lb) 10/22/2024 8:30 AM EDT Height 188 cm (6' 2 ) 10/16/2024 10:58 AM EDT Body Mass Index 30.56 10/16/2024 10:58 AM EDT Plan of Treatment Not on file Medical Devices Implanted Type Area Interactive Marketing Strategist Device Identifier Shelf Expiration Date Model / Serial / Lot Plate And Screws For Lumbar Fusion IMPLANTS Pwdr Cellerate Clgn 1gm Strl [id number] - [id number] Implanted:Qty : 1 on 10/22/2024 by Geoff Aragon MD at [facility] IMPLANTS Right: Hip [employer] 09/11/2026 WCI--SA CRXP / [id number] / Pain Mgmt/Stimulat or Pain Mgmt/Stimulat or Cup Clstr-Hole Altn Pcg6 54mm [id number] - [id number] Implanted:Qty : 1 on 10/22/2024 by Geoff Aragon MD at [facility] [employer] Right: Hip [employer] 09/26/2033 -0654 / [id number] / Liner Ext Cov Grp6 40mm 0 - [id number] Implanted:Qty : 1 on 10/22/2024 by Geoff Aragon MD at [facility] [employer] Right: Hip [employer] 04/24/202740 / [id number] / Stem Fem Pf Sz6 104mm - [id number] Implanted:Qty : 1 on 10/22/2024 by Geoff Aragon MD at [facility] [employer] Right: Hip [employer] 10/13/2028 / [id number] / Head Fem 40mm 04/12 3.5mm - [id number] Implanted:Qty : 1 on 10/22/2024 by Geoff Aragon MD at [facility] [employer] Right: Hip [employer] 10/16/2028 / [id number] / Procedures Procedure Name Priority Date/Time Associated Diagnosis Comments NOVA GLUCOSE POC Routine 10/22/2024 1:13 PM EDT FL < 1 HOUR Routine 10/22/2024 12:30 PM EDT ANESTHESIA INTUBATION Routine 10/22/2024 11:13 AM EDT [place] ARTHRP ACETBLR/PROX FEM PROSTC AGRFT/ALGRFT 10/22/2024 11:06 AM EDT Unilateral primary osteoarthritis, right hip Case Notes EXACTECH, HANA TABLE, C-ARM NOVA GLUCOSE POC Routine 10/22/2024 7:59 AM EDT EKG-SCANNED 10/22/2024 VITAMIN D, 25-HYDROXY Routine 10/16/2024 10:53 AM EDT Preop examination PROTHROMBIN TIME/INR Routine 10/16/2024 10:53 AM EDT Preop examination PREALBUMIN Routine 10/16/2024 10:53 AM EDT Preop examination NICOTINE & METS, S/P, QUANT(SENDOUT) Routine 10/16/2024 10:53 AM EDT Preop examination HEMOGLOBIN A1C Routine 10/16/2024 10:53 AM EDT Preop examination FRUCTOSAMINE(SENDOUT ) Routine 10/16/2024 10:53 AM EDT Preop examination COMPREHENSIVE METABOLIC PANEL Routine 10/16/2024 10:53 AM EDT Preop examination CBC W/ AUTO DIFF Routine 10/16/2024 10:5 3 AM EDT Preop examination APTT Routine 10/16/2024 10:53 AM EDT Preop examination MRSA SCREEN Routine 10/16/2024 10:53 AM EDT Preop examination FS_MODEL_IP_ECG 12-LEAD Routine 10/16/2024 10:04 AM EDT Preop examination from Last 3 Months Results * (ABNORMAL) Glucose, Nova Meter (10/22/2024 1:13 PM EDT) Only the most recent of2 resultswithin the time period is included. [facility] POC-GLUCOSE 218(H) 70 - 110 mg/dL 10/22/2024 1:15 PM EDT [facility] Comment:In the event of poor peripheral blood flow, venous or arterial blood should be used due to the potential of erroneous results. Licensed Professional Counselor [phone] 10/22/2024 1:15 PM EDT [facility] Blood WHOLE BLOOD / Unknown 10/22/2024 1:13 PM EDT 10/22/2024 1:15 PM EDT Narrative [facility] - 10/22/2024 1:15 PM EDT Licensed Professional Counselor ID is - [id number] Geoff Aragon MD POINT OF CARE TEST ORDERABLES Fi nal Result [address] [phone] * Fluoroscopy less than 1 hour (10/22/2024 [...] MD IMG FLUOROSCOPY ORDERABLES Final Result * AN SINGLE LUMEN INTUBATION (10/22/2024 11:13 AM EDT) Narrative Xena Hernandez CRNA - 10/22/2024 11:13 AM EDT Xena [...] 1 Number of other approaches attempted: 0 us Xena Hernandez CRNA ANESTHESIA ORDERABLES Final R esult * EKG-SCANNED (10/22/2024) Narrative 10/22/2024 Ordered by an unspecified provider. us Default Scanning Provider SCAN ORDERS Final Result * (ABNORMAL) CBC with automated diff (10/16/2024 10:53 AM EDT) WBC 6.3 3.9 - 10.0 K/ L 10/16/2024 1:26 PM EDT [facility] RBC 4.43(L) 4.63 - 6.08 M/ L 10/16/2024 1:26 PM EDT [facility] Hemoglobin 12.9 11.2 - 15.7 GM/DL 10/16/2024 1:26 PM EDT [facility] Hematocrit 39.1(L) 40.1 - 51.0 % 10/16/2024 1:26 PM EDT [facility] MCV 88 79 - 95 fL 10/16/2024 1:26 PM EDT [facility] MCH 29.1 25.6 - 32.2 pg 10/16/2024 1:26 PM EDT [facility] MCHC 33.0 32.3 - 36.5 GM/DL 10/16/2024 1:26 PM EDT [facility] RDW 13.8 11.6 - 14.4 % 10/16/2024 1:26 PM EDT [facility] Platelets 163 163 - 369 K/CU MM 10/16/2024 1:26 PM EDT [facility] MPV 12.3 9.4 - 12.4 fL 10/16/2024 1:26 PM EDT [facility] % Neutros 58 34 - 68 % 10/16/2024 1:26 PM EDT [facility] % Lymphs 24 19 - 53 % 10/16/2024 1:26 PM EDT [facility] % Monos 9 4 - 13 % 10/16/2024 1:26 PM EDT [facility] % Eos 7 1 - 7 % 10/16/2024 1:26 PM EDT [facility] % Baso 2(H) 0 - 1 % 10/16/2024 1:26 PM EDT [facility] # Neutros 3.66 1.56 - 6.13 K/ L 10/16/2024 1:26 PM EDT [facility] # Lymphs 1.54 1.18 - 3.74 K/ L 10/16/2024 1:26 PM EDT [facility] # Monos 0.57 0.24 - 0.82 K/ L 10/16/2024 1:26 PM EDT [facility] # Eos 0.45 0.04 - 0.54 K/ L 10/16/2024 1:26 PM EDT [facility] # Baso 0.10(H) 0.01 - 0.08 K/ L 10/16/2024 1:26 PM EDT [facility] Immature Granulocytes-Re lative 0.20 0.00 - 0.60 % 10/16/2024 1:26 PM EDT [facility] # IG 0.01 0.00 - 0.05 K/uL 10/16/2024 1:26 PM EDT [facility] Blood Venipuncture / Unknown 10/16/2024 10:53 AM EDT 10/16/2024 1:13 PM EDT [facility] - 10/16/2024 1:26 PM EDT When [...] MD LAB BLOOD ORDERABLES Miracle l Result [facility] [address] [place] [address], [facility] [phone] * Nicotine & Mets, S/P, Quant(SENDOUT) (10/16/2024 10:53 AM EDT) [facility] Cotinine, S/P, Quant <5 ng/mL 10/24/2024 1:51 AM EDT [facility] Nicotine, S/P, Quant <5 ng/mL 10/24/2024 1:51 AM EDT [facility] Comment: INTERPRETIVE INFORMATION: Nicotine and [...] developed and its performance characteristics determined by [facility]. It has not been cleared or approved by the [place] Food and Drug Administration. This test was performed in a CLIA certified laboratory and is intended for clinical purposes. Performed By: [facility] [address] [place] [id number] Cnp: Anders Wooten MD, PhD CLIA Number: [id number] Blood Venipuncture / Unknown 10/16/2024 10:53 AM EDT 10/16/2024 1:12 PM EDT Luís Thakur MD LAB BLOOD ORDERABLES Miracle l Result Performing Organization Address [facility] Co de Phone Number [facility] [address] [place], [place] [address] [phone] * (ABNORMAL) Fructosamine(SENDOUT) (10/16/2024 10:53 AM EDT) Pathologist [facility] Fructosamine 307(H) 205 - 285 umol/L 10/19/2024 5:25 AM EDT [facility] Comment: INTERPRETIVE INFORMATION: Fructosamine Variations in levels of serum proteins (albumin and immunoglobulins) may affect fructosamine results. Performed By: [facility] [address] [place] [address] Cnp: Anders Wooten MD, PhD CLIA Number: [id number] Blood Venipuncture / Unknown 10/16/2024 10:53 AM EDT 10/16/2024 1:12 PM EDT Luís Thakur MD LAB BLOOD ORDERABLES Miracle l Result Performing Organization Address [facility] Co de Phone Number [facility] [address] [place], [place] [address] [phone] * Vitamin D, 25-Hydroxy (10/16/2024 10:53 AM EDT) [facility] Vitamin D 25-Hydroxy 46.42 30.0 - 100.0 ng/mL 10/16/2024 1:49 PM EDT [facility] Blood Venipuncture / Unknown 10/16/2024 10:53 AM EDT 10/16/2024 1:12 PM EDT Luís Thakur MD LAB BLOOD ORDERABLES Miracle l Result Performing Organization Address City/[facility]/ZIP Co de Phone Number [facility] [address] [place] [address] * aPTT (10/16/2024 10:53 AM EDT) Pathologist [facility] aPTT 25.0 22.0 - 32.0 seconds 10/16/2024 1:31 PM EDT [facility] Blood Venipuncture / Unknown 10/16/2024 10:53 AM EDT 10/16/2024 1:12 PM EDT us Luís Thakur MD LAB BLOOD ORDERABLES Miracle l Result Performing Organization Address [facility] de Phone Number [facility] [address] [phone] * Prothrombin time/INR (10/16/2024 10:53 AM EDT) Pathologist [facility] Protime 10.2 9.0 - 12.0 seconds 10/16/2024 1:31 PM EDT [facility] INR 0.93 0.80 - 1.10 10/16/2024 1:31 PM EDT [facility] Comment: Recommended therapeutic ranges using [...] ORDERABLES Miracle l Result Performing Organization Address City/[facility] Co de Phone Number [facility] [address] [phone] * (ABNORMAL) MRSA Screen (10/16/2024 10:53 AM EDT) Pathologist [facility] MRSA by PCR [facility] MRSA Detected by PCR(A) MRSA Not Detected by PCR DEVICE ID9 10/16/2024 4:45 PM EDT [facility] Nasal BOTH ANTERIOR NARES / Unknown 10/16/2024 10:53 AM EDT 10/16/2024 1:12 PM EDT us Luís Thakur MD MICROBIOLOGY - GENERAL OR DERABLES Final Result [facility] [address] [phone] * Prealbumin (10/16/2024 10:53 AM EDT) Prealbumin 39 20 - 40 mg/dL 10/16/2024 1:49 PM EDT [facility] Blood Venipuncture / Unknown 10/16/2024 10:53 AM EDT 10/16/2024 1:12 PM EDT Luís Thakur MD LAB BLOOD ORDERABLES Miracle l Result Performing Organization Address [facility] Co de Phone Number [facility] [address] [place] [address], [facility] [phone] * (ABNORMAL) Hemoglobin A1c (10/16/2024 10:53 AM EDT) Hemoglobin A1C 7.0(H) 4.2 - 6.3 % 10/16/2024 1:36 PM EDT [facility] Comment: Hemoglobin A1C levels are related to mean glucose during the preceding 2-3 months. Less than 7% demonstrates glycemic control in diabetic patients. Hemoglobin AlC % Suggested Diagnosis > or = 6.5 Diabetic 5.7 - 6.4 Prediabetic <5.7 Non-diabetic eAVG Glucose 154.2 mg/dL 10/16/2024 1:36 PM EDT [facility] Blood Venipuncture / Unknown 10/16/2024 10:53 AM EDT 10/16/2024 1:13 PM EDT Luís Thakur MD LAB BLOOD ORDERABLES Miracle l Result Performing Organization Address City/[facility]/ZIP Co de Phone Number [facility] [address] [place] [address], [facility] [phone] * (ABNORMAL) Comprehensive metabolic panel (10/16/2024 10:53 AM EDT) Sodium 139 136 - 146 meq/L 10/16/2024 1:49 PM [facility] Potassium 4.1 3.5 - 5.1 meq/L 10/16/2024 1:49 PM [facility] Chloride 108 102 - 112 meq/L 10/16/2024 1:49 PM [facility] CO2 27 21 - 32 meq/L 10/16/2024 1:49 PM T [facility] Calcium 10.1 8.5 - 10.1 mg/dL 10/16/2024 1:49 PM [facility] Glucose 144(H) 74 - 106 mg/dL 10/16/2024 1:49 PM [facility] BUN 26(H) 7 - 22 mg/dL 10/16/2024 1:49 PM [facility] Creatinine 1.12 0.70 - 1.30 mg/dL 10/16/2024 1:49 PM [facility] BUN/Creatinine 23(H) 8 - 20 10/16/2024 1:49 PM [facility] Albumin 4.1 3.4 - 5.0 g/dL 10/16/2024 1:49 PM [facility] Alkaline Phosphatase 85 27 - 136 U/L 10/16/2024 1:49 PM [facility] ALT 27 12 - 78 U/L 10/16/2024 1:49 PM [facility] AST 11 5 - [...] 1.5 - 4.5 g/dL 10/16/2024 1:49 PM EDT [facility] Osmolality Calc 284.8 mOsm/kg 1:49 PM EDT [facility] eGFR (mL/min/1.73m2) >60 >=60 mL/min/1.7 3m2 10/16/2024 1:49 PM EDT [facility] Comment:ESTIMATED GFR IS NOT ACCURATE CREATININE CLEARANCE IN PREDICTING GLOMERULAR FILTRATION RATE. ESTIMATED GFR IS NOT APPLICABLE FOR DIALYSIS PATIENTS. Blood Venipuncture / Unknown 10/16/2024 10:53 AM EDT 10/16/2024 1:12 PM EDT Luís Thakur MD LAB BLOOD ORDERABLES Miracle l Result Performing Organization Address [facility] Co de Phone Number [facility] [address] [phone] * ECG 12 lead (10/16/2024 10:04 AM EDT) VENTRICULAR RATE EKG/MIN 72 BPM GE MUSE ATRIAL RATE (MCT) 72 BPM GE MUSE [place] Interval 164 ms GE MUSE QRS-INTERVAL (MSEC) 98 ms GE MUSE QT Interval 362 ms GE MUSE QTC Interval 396 ms GE MUSE P [place] 26 degrees GE MUSE R AXIS (MCT) -20 degrees GE MUSE T Wave [place] 62 degrees GE MUSE [place] Diagnosis Normal sinus rhythm Normal ECG Confirmed by Alycia LOPEZ SUZANNE ([id number]) on 10/17/2024 10:35:14 AM GE MUSE 10/16/2024 10:0 4 AM EDT 10/17/2024 10:35 AM EDT Luís Thakur MD ECG ORDERABLES Final Res ult Performing Organization Address City/[facility] Co de Phone Number GE MUSE from Last 3 Months Additional Health Concerns Infection Onset Date Last Indicated MRSA (C) 10/16/2024 10/16/2024 Insurance [facility] [employer] Advance Directives For more information, please contact: [phone] * Full Code (Latest Code Status on File) Date Activated Date Inactivated Comments 10/22/2024 6:56 AM 10/22/2024 6:39 PM Care Teams Coding Team Lead Relationship Specialty Start Date End Date Dany Smith MD [address] [facility] [address] [place] [id number] PCP - General Family Medicine 10/16/24
--- OUTSIDE RECORDS SUMMARY | 2024-11-27 09:46 | XMS_ITS | Clinical Summary ---
Author Organization [employer] ([place], [place], [place], [place]) Address [address] [place] [address] Care Team Providers Care Flight Superintendent Name Role Phone Dany Smith MD Primary Care Provider +1 [phone] Allergies No known active allergies Medications Ozempic [...] disease) Kidney stone 10/16/2024 HTN (hypertension) 10/16/2024 Encounters Date Type Department Care Team Description 10/22/2024 11:15 AM EDT - 10/22/2024 1:49 PM EDT Surgery [facility] Surgery Department [address] [place] [address] Geoff Aragon MD RIGHT TOTALHIP ARTHROPLASTY, DIRECT ANTERIOR APPROACH 10/22/2024 11:06 AM EDT Anesthesia Event [facility] Surgery Department [address] [place] [address] Xena Hernandez CRNA Littles, Joel T, MD 10/22/2024 7:46 AM EDT - 10/22/2024 4:52 PM EDT Hospital Encounter [facility] Surgery Department [address] [place] [address] Geoff Aragon MD Discharge Disposition: Home or Self Care 10/21/2024 Surgery Prep [facility] Surgery Department [address] [place] [address] Geoff Aragon MD 10/20/2024 Travel 10/16/2024 10:42 AM EDT - 10/16/2024 11:59 PM EDT Hospital Encounter [facility] Preadmission Testing [address] [facility] [address] [place] [phone] Dany Smith MD Preop examination (Primary Dx); 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); Neuropathy; Kidney stone Discharge Disposition: Home or Self Care 10/16/2024 Travel from Last 3 Months Social History Tobacco Use Types Packs/Day Years [...] 10/16/2024 10:58 AM EDT Plan of Treatment Health Maintenance Due Date Last Done Comments CT Colonography 1963 Colonoscopy 1963 Colorectal Cancer Screening 1963 Diabetic Kidney Health Evaluation (KED) 1963 FOBT/FIT 1963 Fit-DNA (Cologuard) 1963 Sigmoidoscopy 1963 Diabetic Eye Exam 1973 Tobacco Cessation Counseling and Screening (12+) 1975 HIV Screening 1978 Hepatitis C Screening 1981 Lipid Panel 1998 Shingles Vaccine (Zoster) (1 of 2) 2013 Pneumococcal 50+ years (2 of 2 - PCV) 08/22/2018 Respiratory Syncytial Virus (RSV) Adult or (1 - Risk 60-74 years 1-dose series) 2023 COVID-19 VACCINE ( season) 2023, 07/28/2020 Influenza Vaccine (#1) 2024 Hemoglobin A1C 04/17/2025 10/16/2024 DTAP/TDAP/TD VACCINES (2 - Td or Tdap) 08/23/2027 Medical Devices Implanted Type Area Dry Cleaner Device Identifier Shelf Expiration Date Model / Serial / Lot Plate And Screws For Lumbar Fusion IMPLANTS Pwdr Cellerate Clgn 1gm Strl Jhy-41-[id number] - [id number] Implanted:Qty : 1 on 10/22/2024 by Geoff Aragon MD at [facility] IMPLANTS Right: Hip [employer] 09/11/2026 I-01-SA CRXP / [id number] / Pain Mgmt/Stimulat or Pain Mgmt/Stimulat or Cup Clstr-Hole Altn Pcg6 54mm 59-456-35 [id number] - [id number] Implanted:Qty : 1 on 10/22/2024 by Geoff Aragon MD at [facility] [employer] Right: Hip [employer] 09/26/20330654 / [id number] / Liner Ext Cov Grp6 40mm 0 - [id number] Implanted:Qty : 1 on 10/22/2024 by Geoff Aragon MD at [facility] [employer] Right: Hip [employer] 04/24/20270640 / [id number] / Stem Fem Pf Sz6 104mm - - [id number] Implanted:Qty : 1 on 10/22/2024 by Geoff Aragon MD at [facility] [employer] Right: Hip [employer] 10/13/2028 / [id number] / Head Fem 40mm 04/12 3.5mm 170-40-03 - [id number] Implanted:Qty : 1 on 10/22/2024 by Geoff Aragon MD at [facility] [employer] Right: Hip [employer] 10/16/2028 170-40-03 / [id number] / Procedures Procedure Name Priority Date/Time Associated Diagnosis Comments NOVA GLUCOSE POC Routine 10/22/2024 1:13 PM EDT FL < 1 HOUR Routine 10/22/2024 12:30 PM EDT ANESTHESIA INTUBATION Routine 10/22/2024 11:13 AM EDT SD ARTHRP ACETBLR/PROX FEM PROSTC AGRFT/ALGRFT 10/22/2024 11:06 [...] of2 resultswithin the time period is included. POC-GLUCOSE 218(H) 70 - 110 mg/dL 10/22/2024 1:15 PM EDT [facility] Comment:In the event of poor peripheral blood flow, venous or arterial blood should be used due to the potential of erroneous results. [employer]S Locker Room Attendant [id number] 10/22/2024 1:15 PM EDT [facility] Blood WHOLE BLOOD / Unknown 10/22/2024 1:13 PM EDT 10/22/2024 1:15 PM EDT Narrative [facility] - 10/22/2024 1:15 PM EDT Men'S Locker Room Attendant ID is - [id number] us Geoff Aragon MD POINT OF CARE TEST ORDERABLES Fi nal Result Performing Organization Address City/State/[facility] Co de Phone Number [facility] [address] [place] [address] * Fluoroscopy less than 1 hour (10/22/2024 [...] of other approaches attempted: 0 Xena Hernandez CRNA ANESTHESIA ORDERABLES Final R esult * EKG-SCANNED (10/22/2024) Narrative 10/22/2024 Ordered by an unspecified provider. Default Scanning Provider SCAN ORDERS Final Result * (ABNORMAL) CBC with automated diff (10/16/2024 10:53 AM EDT) [facility] WBC 6.3 3.9 - 10.0 K/ L 10/16/2024 1:26 PM EDT [facility] RBC 4.43(L) 4.63 - 6.08 M/ L 10/16/2024 1:26 PM EDT [facility] Hemoglobin 12.9 11.2 - 15.7 GM/DL 10/16/2024 1:26 PM EDT [facility] Hematocrit 39.1(L) 40.1 - 51.0 % 10/16/2024 1:26 PM EDT [facility] MCV 88 79 - 95 fL 10/16/2024 1:26 PM EDT [facility] MCH 29.1 25.6 - 32.2 pg 10/16/2024 1:26 PM EDT [facility] MCHC 33.0 32.3 - 36.5 GM/DL 10/16/2024 1:26 PM EDT [facility] RDW 13.8 11.6 - 14.4 % 10/16/2024 1:26 PM EDT [facility] Platelets 163 163 - 369 K/CU MM 10/16/2024 1:26 PM EDT [facility] MPV 12.3 9.4 - 12.4 fL 10/16/2024 1:26 PM EDT [facility] % Neutros 58 34 - 68 % 10/16/2024 1:26 PM EDT [facility] % Lymphs 24 19 - 53 % 10/16/2024 1:26 PM EDT [facility] % Monos 9 4 - 13 % 10/16/2024 1:26 PM EDT [facility] % Eos 7 1 - 7 % 10/16/2024 1:26 PM EDT [facility] % Baso 2(H) 0 - 1 % 10/16/2024 1:26 PM EDT [facility] # Neutros 3.66 1.56 - 6.13 K/ L 10/16/2024 1:26 PM EDT [facility] # Lymphs 1.54 1.18 - 3.74 K/ L 10/16/2024 1:26 PM EDT [facility] # Monos 0.57 0.24 - 0.82 K/ L 10/16/2024 1:26 PM EDT [facility] # Eos 0.45 0.04 - 0.54 K/ L 10/16/2024 1:26 PM EDT [facility] # Baso 0.10(H) 0.01 - 0.08 K/ L 10/16/2024 1:26 PM EDT [facility] Immature Granulocytes-Re lative 0.20 0.00 - 0.60 % 10/16/2024 1:26 PM EDT [facility] # IG 0.01 0.00 - 0.05 K/uL 10/16/2024 1:26 PM EDT [facility] Blood Venipuncture / Unknown 10/16/2024 10:53 AM EDT 10/16/2024 1:13 PM EDT Narrative [facility] - 10/16/2024 1:26 PM EDT [...] MD LAB BLOOD ORDERABLES [facility] Result [facility] [address] [phone] * Nicotine & Mets, S/P, Quant(SENDOUT) (10/16/2024 10:53 AM EDT) Pathologist [facility] Cotinine, S/P, Quant <5 ng/mL 10/24/2024 1:51 AM EDT [facility] Nicotine, S/P, Quant <5 ng/mL 10/24/2024 1:51 AM EDT [facility] Comment: INTERPRETIVE INFORMATION: Nicotine and Metabolites, Serum [...] developed and its performance characteristics determined by [facility]. It has not been cleared or approved by the [place] Food and Drug Administration. This test was performed in a CLIA certified laboratory and is intended for clinical purposes. Performed By: [facility] [address] [place], [place] [id number] Surgical Elastic Knitter: Anders Wooten MD, PhD CLIA Number: [id number] Blood Venipuncture / Unknown 10/16/2024 10:53 AM EDT 10/16/2024 1:12 PM EDT Luís Thakur MD LAB BLOOD ORDERABLES [facility] Result [address] [phone] * (ABNORMAL) Fructosamine(SENDOUT) (10/16/2024 10:53 AM EDT) Fructosamine 307(H) 205 - 285 umol/L 10/19/2024 5:25 AM EDT [facility] Comment: INTERPRETIVE INFORMATION: Fructosamine Variations in levels of serum proteins (albumin and immunoglobulins) may affect fructosamine results. Performed By: [facility] [address] [place] [address] Surgical Elastic Knitter: Anders Wooten MD, PhD CLIA Number: [id number] Blood Venipuncture / Unknown 10/16/2024 10:53 AM EDT 10/16/2024 1:12 PM EDT Luís Thakur MD LAB BLOOD ORDERABLES [facility] Result [employer] [facility] [address] [place] [address], [facility] [phone] * Vitamin D, 25-Hydroxy (10/16/2024 10:53 AM EDT) Vitamin D 25-Hydroxy 46.42 30.0 - 100.0 ng/mL 10/16/2024 1:49 PM EDT [facility] Blood Venipuncture / Unknown 10/16/2024 10:53 AM EDT 10/16/2024 1:12 PM EDT Luís Thakur MD LAB BLOOD ORDERABLES [facility] Result Performing Organization Address [facility]/ZIP Co de Phone Number [facility] [address] [phone] * aPTT (10/16/2024 10:53 AM EDT) [facility] aPTT 25.0 22.0 - 32.0 seconds 10/16/2024 1:31 PM EDT [facility] Blood Venipuncture / Unknown 10/16/2024 10:53 AM EDT 10/16/2024 1:12 PM EDT Luís Thakur MD LAB BLOOD ORDERABLES [facility] Result Performing Organization Address City/[facility]/ZIP Co de Phone Number [facility] [address] [phone] * Prothrombin time/INR (10/16/2024 10:53 AM EDT) Protime 10.2 9.0 - 12.0 seconds 10/16/2024 1:31 PM EDT [facility] INR 0.93 0.80 - 1.10 10/16/2024 1:31 PM EDT [facility] Comment: Recommended therapeutic ranges using [...] ORDERABLES [facility] Result Performing Organization Address City/[facility]/ZIP Co de Phone Number [facility] [address] [phone] * (ABNORMAL) MRSA Screen (10/16/2024 10:53 AM EDT) Pathologist [facility] MRSA by PCR [facility] MRSA Detected by PCR(A) MRSA Not Detected by PCR DEVICE ID9 10/16/2024 4:45 PM EDT [facility] Nasal BOTH ANTERIOR NARES / Unknown 10/16/2024 10:53 AM EDT 10/16/2024 1:12 PM EDT us Luís Thakur MD MICROBIOLOGY - GENERAL OR DERABLES Final Result Performing Organization Address [facility] Co de Phone Number [facility] [address] [phone] * Prealbumin (10/16/2024 10:53 AM EDT) Pathologist [facility] Prealbumin 39 20 - 40 mg/dL 10/16/2024 1:49 PM EDT [facility] Blood Venipuncture / Unknown 10/16/2024 10:53 AM EDT 10/16/2024 1:12 PM EDT us Luís Thakur MD LAB BLOOD ORDERABLES [facility] Result Performing Organization Address City/[facility]/ZIP Co de Phone Number [facility] [address] [place] [address], [facility] [phone] * (ABNORMAL) Hemoglobin A1c (10/16/2024 10:53 AM EDT) Hemoglobin A1C 7.0(H) 4.2 - 6.3 % 10/16/2024 1:36 PM EDT [facility] Comment: Hemoglobin A1C levels are related to mean glucose during the preceding 2-3 months. Less than 7% demonstrates glycemic control in diabetic patients. Hemoglobin AlC % Suggested Diagnosis > or = 6.5 Diabetic 5.7 - 6.4 Prediabetic <5.7 Non-diabetic eAVG Glucose 154.2 mg/dL 10/16/2024 1:36 PM EDT [facility] Blood Venipuncture / Unknown 10/16/2024 10:53 AM EDT 10/16/2024 1:13 PM EDT Luís Thakur MD LAB BLOOD ORDERABLES [facility] Result Performing Organization Address City/State/[facility] Co de Phone Number [facility] [address] [phone] * (ABNORMAL) Comprehensive metabolic panel (10/16/2024 10:53 AM EDT) Pathologist [facility] Sodium 139 136 - 146 meq/L 10/16/2024 1:49 PM EDT [facility] Potassium 4.1 3.5 - 5.1 meq/L 10/16/2024 1:49 PM EDT [facility] Chloride 108 102 - 112 meq/L 10/16/2024 1:49 PM EDT [facility] CO2 27 21 - 32 meq/L 10/16/2024 1:49 PM EDT [facility] Calcium 10.1 8.5 - 10.1 mg/dL 10/16/2024 1:49 PM EDT [facility] Glucose 144(H) 74 - 106 mg/dL 10/16/2024 1:49 PM EDT [facility] BUN 26(H) 7 - 22 mg/dL 10/16/2024 1:49 PM EDT [facility] Creatinine 1.12 0.70 - 1.30 mg/dL 10/16/2024 1:49 PM EDT [facility] BUN/Creatinine 23(H) 8 - 20 10/16/2024 1:49 PM EDT [facility] Albumin 4.1 3.4 - 5.0 g/dL 10/16/2024 1:49 PM EDT [facility] Alkaline Phosphatase 85 27 - 136 U/L 10/16/2024 1:49 PM EDT [facility] ALT 27 12 - 78 U/L 10/16/2024 1:49 PM EDT [facility] AST 11 5 - 37 U/L 10/16/2024 1:49 PM EDT [facility] Total Bilirubin 0.4 0.2 - 1.3 mg/dL 10/16/2024 1:49 PM EDT [facility] Protein, Total 7.5 6.4 - 8.2 gm/dL 10/16/2024 1:49 PM EDT [facility] Anion Gap 8(L) 9 - 20 10/16/2024 1:49 PM EDT [facility] A/G Ratio 1.2 1.1 - 2.5 10/16/2024 1:49 PM EDT [facility] Globulin 3.4 1.5 - 4.5 g/dL 10/16/2024 1:49 PM EDT [facility] Osmolality Calc 284.8 mOsm/kg 1:49 PM EDT [facility] eGFR (mL/min/1.73m2) >60 >=60 mL/min/1.7 3m2 10/16/2024 1:49 PM EDT [facility] Comment:ESTIMATED GFR IS NOT ACCURATE CREATININE CLEARANCE IN PREDICTING GLOMERULAR FILTRATION RATE. ESTIMATED GFR IS NOT APPLICABLE FOR DIALYSIS PATIENTS. Blood Venipuncture / Unknown 10/16/2024 10:53 AM EDT 10/16/2024 1:12 PM EDT us Luís Thakur MD LAB BLOOD ORDERABLES [facility] Result [facility] [address] [place] [address], [facility] [phone] * ECG 12 lead (10/16/2024 10:04 AM EDT) VENTRICULAR RATE EKG/MIN 72 BPM GE MUSE ATRIAL RATE (MCT) 72 BPM GE MUSE SD Interval 164 ms GE MUSE QRS-INTERVAL (MSEC) 98 ms GE MUSE QT Interval 362 ms GE MUSE QTC Interval 396 ms GE MUSE P [place] 26 degrees GE MUSE R AXIS (MCT) -20 degrees GE MUSE T Wave [place] 62 degrees GE MUSE [place] Diagnosis Normal sinus rhythm Normal ECG Confirmed by Alycia LOPEZ SUZANNE ([id number]) on 10/17/2024 10:35:14 AM GE MUSE 10/16/2024 10:0 4 AM EDT 10/17/2024 10:35 AM EDT us Luís Thakur MD ECG ORDERABLES Final Res ult GE MUSE from Last 3 Months Additional Health Concerns Infection Onset Date Last Indicated MRSA (C) 10/16/2024 10/16/2024 Insurance [facility] [employer] Advance Directives For more information, please contact: [phone] * Full Code (Latest Code Status on File) Date Activated Date Inactivated Comments 10/22/2024 6:56 AM 10/22/2024 6:39 PM Care Teams Flight Superintendent Relationship Specialty Start Date End Date Dany Smith MD [address] [facility] [address] [place] [phone] PCP - General Family Medicine 10/16/24
--- OUTSIDE RECORDS SUMMARY | 2024-11-27 09:47 | XMS_ITS | Encounter Summary ---
Author Organization [employer] ([place], [place], [place], [place]) Address [address] [place] [address] Care Team Providers Care Desilverizer Name Role Phone Dany Smith MD Primary Care Provider + [phone] Encounter Details Date Type Department Care Team (Late st Contact Info) Description 10/21/2024 Surgery Prep [facility] Surgery Department [address] [place] [address] Geoff Aragon MD [address] [facility] [address] [place] [address] Social History Tobacco Use Types Packs/Day Years Used Date Smoking Tobacco: Former Cigarettes Comments:Quit vaping approx 45 days ago. (08/28/2024) Alcohol Use Standard Drinks/Week Comments Not Asked 0 (1 standard drink = 0.6 oz pur e alcohol) not now Sex and Gender Information Value Date Recorded Sex Assigned at Not on file Legal Sex Male 1:46 PM CDT Gender Identity Not on file Sexual Orientation Not on file documented as of this encounter Progress Notes * Geoff Aragon MD - 10/21/2024 12:29 PM EDT Subjective Review of Systems Objective Last Recorded Vitals There were no vitals taken for this visit. Physical Exam Labs: No results found for this visit on 10/21/24 (from the past 24 hours). No image results found. Assessment Plan Discharge Planning: documented in this encounter Plan of Treatment Not on file documented as of this encounter Visit Diagnoses Not on filedocumented in this encounter Additional Health Concerns Infection Onset Date Last Indicated Resolved Time MRSA (C) 10/16/2024 10/16/2024 documented as of this encounter Care Teams Desilverizer Relationship Specialty Start Date End Date Dany Smith MD [address] [place] [facility] [address] [place] [phone] PCP - General Family Medicine 10/16/24 documented as of this encounter
--- OUTSIDE RECORDS SUMMARY | 2024-11-27 09:47 | XMS_ITS | Encounter Summary ---
Author Organization [employer] ([place], [place], [place], [place]) Address [address] [place] [address] Care Team Providers Care Silver Service Waiter Name Role Phone Dany Smith MD Primary Care Provider +1 [phone] Encounter Details Date Type Department Care Team (Latest Contact Info) Description 10/20/2024 Travel Social History Tobacco Use Types Packs/Day Years [...] documented as of this encounter Care Teams Silver Service Waiter Relationship Specialty Start Date End Date Dany Smith MD [address] [facility] [address] [place] [phone] PCP - General Family Medicine 10/16/24 documented as of this encounter
--- OUTSIDE RECORDS SUMMARY | 2024-11-27 09:47 | XMS_ITS | Encounter Summary ---
Author Organization [employer] ([place], [place], [place], [place]) Address [address] [place] [address] Care Team Providers Care Supervisor Word Processing Name Role Phone Dany Smith MD Primary Care Provider [phone] [phone] Encounter Details Date Type Department Care Team (Latest Contact Info) Description 10/16/2024 Travel Social History Tobacco Use Types Packs/Day [...] documented as of this encounter Care Teams Supervisor Word Processing Relationship Specialty Start Date End Date Dany Smith MD [address] [facility] [address] [place] [phone] PCP - General Family Medicine 10/16/24 documented as of this encounter
--- NOTE | 2024-11-27 10:00 | CA_ITS ---
APPROVED REPORT Exam: Exercise Treadmill Technologist: Negra Osborne Ht: 6 ft 2 in Wt: 233 lbs BSA: 2.32 m2 HR: 102 bpm BP: 136/70 mmHg Rhythm: NSR Medical History Medical History: HTN, , Hyperlipidemia, Diabetes, Smoking Medications: Albuterol, Atorvastatin, Neurotin, Hydroxyzine, Metformin, Omeprazole, Ozempic, Triamterene HCTZ Allergies: No known drug allergies Cardiac Risk Factors: HTN, Hyperlipidemia, Diabetes, Smoking Stress Test Details Test: Exercise stress testing was performed using a Nicko protocol. HR Resting HR: 102 bpm Max Heart Rate (APMHR): 159 bpm Max HR Achieved: 143 bpm Target HR (85% APMHR): 135 bpm % of APMHR: 90 Recovery HR: 125 bpm HR response to stress: Normal HR response to stress BP Resting BP: 136.0/70.0 mmHg Max BP: 143.0/63.0 mmHg Recovery BP: 143.0/63.0 mmHg BP response to stress: Normal blood pressure response to stress. ECG Resting ECG: NSR Stress ECG: < 0.[address] depression Arrhythmia: PVCs Clinical Exercise duration: 4:00 min Exercise capacity: 4.7 METs Overall Exercise Capacity for Age: Fair Stress ECG Conclusion The patient developed dyspnea at peak stress Ectopy: Occasional PVCs ST changes: < 0.[address] depression CONCLUSION Fair exercise capacity. No significant ischemic ECG changes at peak stress Electronically signed by : Eileen Lam MD 11/27/2024 12:30:23
== END 2024-11-27 23:59 | disposition home or self-care (01) ==
LOC: RT 09:44
PROVIDERS: PCP Family Medicine; Visit Provider Nurse Practitioner Family
DX: I49.3 Ventricular premature depolarization (principal); I25.10 Atherosclerotic heart disease of native coronary artery without angina pectoris; R94.31 Abnormal electrocardiogram [ECG] [EKG]
CPT/HCPCS: 93016; 93017; 93018

== ENCOUNTER 2025-02-25 13:21 | Outpatient (CLI) | payer OTHER, SELFPAY ==
--- OUTSIDE RECORDS SUMMARY | 2024-08-12 09:45 | XMS_ITS ---
Author Organization [facility] Address [address] [facility] [address] [place] [id number] Care Team Providers [employer] Driver Name Role Phone Burke Smith Primary Care Provider [phone] Klaudia Potts [phone] Allergies No Known Allergies REASON FOR VISIT due to hip surgery, needs documentation on no longer smoking Medications Medication SIG (Take, Route, Frequency, Duration) Notes Start Date End Date Status Ozempic (1 MG/DOSE) 4 MG/3ML 1 mg Subcutaneous once a week; Duration: 30 days 07/28/2024 Active Albuterol Sulfate HFA 108 (90 Base) MCG/ACT INHALE 2 PUFF(S) BY MOUTH EVERY 6 HOURS NEEDED; Duration: 25 Active Triamterene-HCTZ 37.5-25 MG 1 tab(s) Orally Once a day; Duration: 90 days Active Atorvastatin Calcium 20 MG 1 tablet Oral ly Once a day; Duration: 90 days Active Tamsulosin HCl 0.4 MG 1 capsule Orally O nce a day, at bedtime; Duration: 90 days Active metFORMIN HCl 500 MG TAKE 1 TABLET BY MO UTH ONCE DAILY; Duration: 30 Active Neurontin 600 MG 1 tablet Orally Four times a day 06/20/2024 Active traZODone HCl 50 MG TAKE 1 TABLET BY GORDY TH AT BEDTIME NEEDED; Duration: 30 Active Mupirocin 2 % 1 application Inspector [employer] ally Twice a day; Duration: 5 day(s) 05/12/2024 Active Omeprazole 40 MG TAKE 1 CAPSULE BY MO UT ONCE DAILY; Duration: 30 Active Celecoxib 200 MG TAKE 1 CAPSULE BY MO UTH ONCE DAILY WITH FOOD; Duration: 30 Active Fluticasone Propionate 50 MCG/ACT as directed in each nostril once a day; Duration: 30 day(s) 03/06/2022 Active Problems Problem Type SNOMED Code ICD Code Onset Dates Problem Status W/U Status Risk Notes Problem Osteoarthritis of hip (005406795) Osteoarthritis of hip, unspecified (M16.9) Active confirmed Vital Signs Blood pressure systolic 120 mm Hg 08/13/19 25 Blood pressure diastolic 66 mm Hg 025 Heart Rate 85 /min 08/12/2024 Height 73 in 08/12/2024 Weight 241.4 lbs 08/12/2024 BMI 31.85 kg/m2 08/12/2024 Encounters Encounter Location Date Provider Diagnosis [facility] [address] [place] [id number] 08/12/2024 Klaudia Potts Tobacco use disorder Z72.0 and Osteoarthritis of hip, unspecified M16.9 Assessments Encounter Date Diagnosis (ICD Code) Assessment Notes Treatment Notes Treatment Clinical Notes Section Notes 08/12/2024 Tobacco use disorder (ICD-10 - Z72.0) He agrees to discontinue vaping. He feels he can do this on his own and does not want medication. He will return in 1 month for blood work to check his nicotine level. 08/12/2024 Osteoarthritis of hip, unspecified (ICD-10 - M16.9) Plan Of Treatment Treatment Notes Assessment Notes Tobacco use disorder He agrees to discon tinue vaping. He feels he can do this on his own and does not want medication. He will return in 1 month for blood work to check his nicotine level. Next Appt Details Follow Up: 30 days, Reason: Provider Name:Hina Guevara Amadeosridhar celso, 02/26/2025 04:00:00 PM, [address], [address], [place], [id number], Progress Notes * ARRON BROWNDOB:[birth year] (59 yo M)Acc No.[id number]:08/12/2024 Progress Notes Patient: ARRON JACKSON Provider: Klaudia Potts M.D. :1965 A ge:59 Y S ex:Male Date:08/12/2024 Address:[address] [place] [address] [place], [id number] Pcp:Burke Smith Subjective: * Chief Complaints: * 1 . Due to hip surgery, needs documentation on no longer smoking. * HPI: H PI: Arron has been following with a [facility] and is considering right total hip arthroplasty but the surgeon requires that he document 30 days of smoking cessation prior to his surgery. He is not currently smoking cigarettes but is vaping using nicotine. He tells me today that he has quit as of yesterday and intends to remain nicotine free in order to have his surgery. He seems quite motivated because of his significant hip pain and limited activity. He agrees to return in a month to have blood work to check his nicotine level. * ROS: D ERMATOLOGY: no R ivory. n o H iban. G ASTROENTEROLOGY: no N ausea. n o V omiting. n o D iarrhea.? U ROLOGY: no D ifficulty urinating. n o B lood in urine. * Medical History: R ecovering alcoholic and addict, Degenerative disc disease of the cervical spine, diffuse, Type 2 Diabetes mellitus, COVID 19 vaccine, Jun/July 2020, Moderna, 7mm renal stone right, with lithotripsy and removal, Dr. Harding, Flu shot 2021. * Surgical History: b one fusion in lower back , left knee surgery , nasal surgery , kidney stone - dr Harding 09/2020, colonoscopy, Dr. Staton, [facility] . * Hospitalization/Major Diagno stic Procedure: H ER Right hand/arm red, swollen, and infected 09/26/2019. * Family History: F ather: 71 yrs, [place]. M other: 70 yrs, heart attack. 1 brother(s) , 3 sister(s) . . * Social History: C URRENT TOBACCO USE: No S moking Status: P atient does NOT smoke, F ormer Smoker:?Yes, Q uit smokin 016. C affeine: yes, frequency: coffee on occasion. Home smoke detector use: yes. Occupation: construction. Recreational drug use: Past use: yes, Pt has been clean for 6 years. Alcohol: No, Type: , Frequency: ,Years: , Determination:. * Medications: T aking Fluticasone Propionate 50 MCG/ACT Suspension as directed in each nostril once a day , Taking Celecoxib 200 MG Capsule TAKE 1 CAPSULE BY MOUTH ONCE DAILY WITH FOOD , Taking metFORMIN HCl 500 MG Tablet TAKE 1 TABLET BY MOUTH ONCE DAILY , Taking Omeprazole 40 MG Capsule Delayed Release TAKE 1 CAPSULE BY MOUTH ONCE DAILY , Taking Mupirocin 2 % Ointment 1 application Externally Twice a day , Taking traZODone HCl 50 MG Tablet TAKE 1 TABLET BY MOUTH AT BEDTIME NEEDED , Taking Neurontin 600 MG Tablet 1 tablet Orally Four times a day , Taking Atorvastatin Calcium 20 MG Tablet 1 tablet Orally Once a day , Taking Triamterene-HCTZ 37.5-25 MG Tablet 1 tab(s) Orally Once a day , Taking Tamsulosin HCl 0.4 MG Capsule 1 capsule Orally Once a day, at bedtime , Taking Albuterol Sulfate HFA 108 (90 Base) MCG/ACT Aerosol Solution INHALE 2 PUFF(S) BY MOUTH EVERY 6 HOURS NEEDED , Taking Ozempic (1 MG/DOSE) 4 MG/3ML Solution Pen-injector 1 mg Subcutaneous once a week , Medication List reviewed and reconciled with the patient * Allergies: N .K.D.A. Objective: * Vitals: W t: 241.4, Temp: 98.4, BP: 120/66, HR: 85, Nurse: zayda, Ht: 73, BMI:31.85. Assessment: * Assessment: 1. T obacco use disorder - Z72.0 (Primary) 2 . O steoarthritis of hip, unspecified - M16.9 Plan: * Treatment: * Procedure Codes: 3 074F SYST BP LT 130 MM HG, 3078F DIAST BP < 80 MM HG * Follow Up: 3 0 days * Images: Billing Information: * Visit Code: 13279 Office Visit, Est Pt., Level 3. * Procedure Codes: 3074F SYST BP LT 130 MM HG. 3078F DIAST BP < 80 MM HG. * Electronic signature of Klaudia Potts MD on 02/25/2025 at 01:29 PM EDT Sign off status: Pending * Provider: Klaudia Potts M.D. Date: 0 08/12/2024 Generated for Cecilio fofana/Blake/eTransmitting on: 1 01:29 PM EDT History and Physical Notes * HPI (History of Present Illness) Category Sub-Category Detail Notes Category Not es HPI He is not curre ntly smoking cigarettes but is vaping using nicotine. He tells me today that he has quit as of yesterday and intends to remain nicotine free in order to have his surgery. He seems quite motivated because of his significant hip pain and limited activity. He agrees to return in a month to have blood work to check his nicotine level.
--- OUTSIDE RECORDS SUMMARY | 2024-09-10 05:00 | XMS_ITS ---
Author Organization [facility] Address [address] [place] [id number] Care Team Providers Care Scalp Treatment Specialist Name Role Phone Burke Smith Primary Care Provider Hina Odell Unavailable [phone] Allergies No Known Allergies Results Component Value Reference Range Notes CBC Venipuncture (in house) Reviewed date:09/11/2024 03:53:42 PM Interpretation:Normal Performing Lab: Notes/Report: Normal wbc 5.5 3.5 - 10 lymph 26.5 15 - 50 mid 7.0 2 - 15 gran 66.5 35 - 80 rbc 4.76 3.5 - 5.5 hgb 13.6 11.5 - 16.5 hct 40.9 35 - 55 mcv 85.9 75 - 100 mch 28.5 25 - 35 mchc 33.2 31 - 38 platlet 190 100 - 400 Glycohemoglobin A1c (in hous e) Reviewed date:09/18/2024 12:35:55 PM Interpretation:7.8% Performing Lab: Notes/Report: 7.8% glycohemoglobin 7.8% 5 - 6.5 % P-Comprehensive Metabolic Pa rob (CMP) Reviewed date:09/18/2024 12:35:55 PM Interpretation: Performing Lab: Notes/Report: Test performed by [facility], [facility] [address] [place] [address] , [address], [place] [address] Colton Cruz MD, Jewelry Model Maker CLIA: [id number] Sodium 141 135-145 mmol/L Potassium 4.2 3.5-5.3 mmol/L Chloride 104 97-108 mmol/L CO2 26 22-32 mmol/L Glucose 123 65-99 mg/dL BUN 21 8-23 mg/dL Creatinine 1.01 0.70-1.30 mg/dL Calcium 9.9 8.6-10.4 mg/dL eGFR by Creatinine 84 >59 mL/min/1.73m2 Protein 7.1 6.0-8.3 g/dL Albumin 4.5 3.5-5.3 g/dL Alkaline Phosphatase 87 40-129 IU/L ALT (SGPT) 17 <5-55 IU/L AST (SGOT) 15 <5-46 IU/L Bilirubin, Total 0.3 <0.2-1.2 mg/dL A/G Ratio 1.7 1.1-2.5 P-Lipid Panel Reviewed date:09/18/2024 12:35:55 PM Interpretation: Performing Lab: Notes/Report: Test performed by [facility], [address] , [place] [address] Colton Cruz MD, Jewelry Model Maker CLIA: [id number] Cholesterol 178 <200 mg/dL Triglycerides 193 <150 mg/dL HDL Cholesterol 34 >39 mg/dL Cholesterol / HDL Ratio 5.24 0.00-4.99 Ratio Non-HDL Cholesterol 144 <130 mg/dL LDL Cholesterol (Calculation) 105 <130 mg/dL LDL Cholesterol Levels* Less than 100 mg/dL Optimal 100 to 129 mg/dL Near Optimal/ Above Optimal 130 to 159 mg/dL Borderline High 160 to 189 mg/dL High 190 mg/dL and above Very High * Categories as recommended by the 2004 ATPIII guidelines LDL/HDL Ratio 3.1 <3.3 Ratio LDL Cholesterol Patient History Test Date: 10/18/2022 LDL Results: SEE COMMENT Units: mg/dL % Change: - Test Date: 05/12/2024 LDL Results: 122 Units: mg/dL % Change: - Test Date: 09/10/2024 LDL Results: 105 Units: mg/dL % Change: -13% P-Nicotine and Metabolites, Serum or Plasma, Quantitative Reviewed date:09/18/2024 12:35:55 PM Interpretation: Performing Lab: Notes/Report: Nicotine, Serum/Plasma <5 INTERPRETIVE INFORMATION: Nicotine and Metabolites, Serum or Plasma, Quantitative Methodology: Quantitative Liquid Chromatography-Tandem Mass Spectrometry Positive cutoff: 5 ng/mL For medical purposes only; not valid for forensic use. This test is designed to evaluate recent use of nicotine-containing products. Passive and active exposure cannot be discriminated definitively, although a cutoff of 10 ng/mL cotinine is frequently used for surgery qualification purposes. For smoking cessation programs or compliance testing, the absence of expected drug(s) and/or drug metabolite(s) may indicate non-compliance, inappropriate timing of specimen collection relative to drug administration, poor drug absorption, or limitations of testing. This test cannot distinguish between use of tobacco and purified nicotine products. The concentration value must be greater than or equal to the cutoff to be reported as positive. This test was developed and its performance characteristics determined by [facility]. It has not been cleared or approved by the [place] Food and Drug Administration. This test was performed in a CLIA certified laboratory and is intended for clinical purposes. Performed By: [facility] [address] [place] [address] Jewelry Model Maker: Anders Wooten MD, PhD CLIA Number: [id number] Cotinine, Serum/Plasma <5 CT SCAN : CHEST, LUNG CANCER SCREENING LOW DOSE Reviewed date:10/10/2024 11:27:07 AM Interpretation: Performing Lab: Notes/Report: REASON FOR VISIT 4 month ckup, Needs labs, low dose chest CT, colon cancer screening, diabetic eye exam, & shingles vaccine Medications Medication SIG (Take, Route, Frequency, Duration) Notes Start Date End Date Status Ozempic (1 MG/DOSE) 4 MG/3ML INJECT 1 MG ONCE A WEEK SUBCUTANEOUSLY Subcutaneous once a week Active traZODone HCl 50 MG TAKE 1 TABLET BY GORDY AT BEDTIME NEEDED Orally qhs; Duration: 90 days Active Omeprazole 40 MG TAKE 1 CAPSULE BY [facility] ONCE DAILY; Duration: 30 Active metFORMIN HCl 500 MG TAKE 1 TABLET BY [facility] ONCE DAILY; Duration: 30 Active Celecoxib 200 MG TAKE 1 CAPSULE BY [facility] ONCE DAILY WITH FOOD; Duration: 30 Active Atorvastatin Calcium 20 MG 1 tablet Orally Once a day; Duration: 90 days Active Neurontin 600 MG 1 tablet Orally Four times a day 06/20/2024 Active Albuterol Sulfate HFA 108 (90 Base) MCG/ACT INHALE 2 PUFF(S) BY MOUTH EVERY 6 HOURS NEEDED; Duration: 25 Active Tamsulosin HCl 0.4 MG 1 capsule Orally O nce a day, at bedtime; Duration: 90 days Active Triamterene-HCTZ 37.5-25 MG 1 tab(s) Orally Once a day; Duration: 90 days Active Mupirocin 2 % 1 application Remote Advisor ally Twice a day; Duration: 5 day(s) 05/12/2024 Active Fluticasone Propionate 50 MCG/ACT as directed in each nostril once a day; Duration: 30 day(s) 03/06/2022 Active Problems Problem Type SNOMED Code ICD Code Onset Dates Problem Status W/U Status Risk Notes Problem BMI 30+ - obesity (656041101) BMI 32.0-32.9,a dult (Z68.32) Active confirmed Vital Signs Blood pressure systolic 124 mm Hg 09/11/19 25 Blood pressure diastolic 76 mm Hg 025 Heart Rate 76 /min 09/10/2024 Height 73 in 09/10/2024 Weight 242.8 lbs 09/10/2024 BMI 32.03 kg/m2 09/10/2024 Encounters Encounter Location Date Provider Diagnosis [facility] [address] [facility] [address], [place] [id number] 09/10/2024 Hina Odell Osteoarthritis of hi p, unspecified M16.9 ; Type 2 diabetes mellitus without complication, without long-term current use of insulin E11.9 ; Essential hypertension I10 ; Mixed hyperlipidemia E78.2 ; Anxiety with depression F41.8 ; Chronic obstructive pulmonary disease, unspecified COPD type J44.9 ; Tobacco use disorder Z72.0 ; Primary insomnia F51.01 and BMI 32.0-32.9,adult Z68.32 Assessments Encounter Date Diagnosis (ICD Code) Assessment Notes Treatment Notes Treatment Clinical Notes Section Notes 09/10/2024 Osteoarthritis of hip, unspecified (ICD-10 - M16.9) 09/10/2024 Type 2 diabetes mellitus without complication, without long-term current use of insulin (ICD-10 - E11.9) 09/10/2024 Essential hypertension (ICD-10 - I10) 09/10/2024 Mixed hyperlipidemia (ICD-10 - E78.2) 09/10/2024 Anxiety with depression (ICD-10 - F41.8) 09/10/2024 Chronic obstructive pulmonary disease, unspecified COPD type (ICD-10 - J44.9) 09/10/2024 Tobacco use disorder (ICD-10 - Z72.0) He has been off of nicotine for 30 days. Will check a level today. 09/10/2024 Primary insomnia (ICD-10 - F51.01) 09/10/2024 BMI 32.0-32.9,adult (ICD-10 - Z68.32) Plan Of Treatment Medication Medication Name Sig Start Date Stop Date Notes Ozempic (1 MG/DOSE) 4 MG/3ML INJECT 1 MG ONCE A WEEK SUBCUTANEOUSLY Subcutaneous once a week traZODone HCl 50 MG TAKE 1 TABLET BY GORDY TH AT BEDTIME NEEDED Orally qhs; Duration: 90 days Treatment Notes Assessment Notes Tobacco use disorder He has been off of nicotine for 30 days. Will check a level today. Next Appt Details Follow Up: via phone to repo rt test results, Reason: Provider Name:Hina houston, 02/26/2025 04:00:00 PM, [address], [address], [place], [place], [id number], Progress Notes * ARRON BROWNDOB:[birth year] (59 yo M)Acc No.[id number]:09/10/2024 Progress Notes Patient: ARRON JACKSON Provider: MIA Benitez :1965 A ge:59 Y S ex:Male Date:09/10/2024 Address:[address] [place] [address] , [place], [id number] Pcp:Burke Smith Subjective: * Chief Complaints: * 1 . 4 month ckup. 2. Needs labs, low dose chest CT, colon cancer screening, diabetic eye exam, & shingles vaccine. * HPI: H PI: Patient is here today for t o get labs drawn to check his nicotine levels. Pt sts that he stopped smoking 31 days ago and cannot have hip surgery until he is free of any nicotine. Pts that he needs a refill of Trazodone and Ozempic today as well - needs nicotine level faxed to [facility] . * ROS: D ERMATOLOGY: no R ivory. [...] - dr Harding 09/2020, colonoscopy, Dr. Staton, [facility] . * Hospitalization/Major Diagno stic Procedure: H [...] each nostril once a day , Taking Mupirocin 2 % Ointment 1 application Externally Twice a day , Taking Neurontin 600 MG Tablet 1 tablet Orally Four times a day , Taking Atorvastatin Calcium 20 MG Tablet 1 tablet Orally Once a day , Taking Triamterene-HCTZ 37.5- 25 MG Tablet 1 tab(s) Orally Once a day , Taking Tamsulosin HCl 0.4 MG Capsule 1 capsule Orally Once a day, at bedtime , Taking Albuterol Sulfate HFA 108 (90 Base) MCG/ACT Aerosol Solution INHALE 2 PUFF(S) BY MOUTH EVERY 6 HOURS NEEDED , Taking Celecoxib 200 MG Capsule TAKE 1 CAPSULE BY MOUTH ONCE DAILY WITH FOOD , Taking metFORMIN HCl 500 MG Tablet TAKE 1 TABLET BY MOUTH ONCE DAILY , Taking traZODone HCl 50 MG Tablet TAKE 1 TABLET BY MOUTH AT BEDTIME NEEDED , Taking Omeprazole 40 MG Capsule Delayed Release TAKE 1 CAPSULE BY MOUTH ONCE DAILY , Taking Ozempic (1 MG/DOSE) 4 MG/3ML Solution Pen-injector INJECT 1 MG ONCE A WEEK SUBCUTANEOUSLY , Medication List reviewed and reconciled with the patient * Allergies: N .K.D.A. Objective: * Vitals: W t: 242.8, Temp: 98.5, BP: 124/76, HR: 76, Nurse: DALE, Ht: 73, BMI:32.03. * Examination: G eneral Examination: General Appearance: N AD. H EENT: u nremarkable.?Oral cavity: n o lesions, mucosa moist and WNL, no erythema. N giuliano: s upple, no lymphadenopathy. C hest: n ormal shape and expansion. H eart: R SR. L ungs: c lear to auscultation. A bdomen: b owel sounds present , soft and nontender , no organomegaly or masses. N eurologic Exam: I ntact, gait normal. S kin: n ormal, no rash. P eripheral pulses: n ormal (2+) bilaterally. E xtremities: n o leg edema. ? Assessment: * Assessment: 1. O steoarthritis of hip, unspecified - M16.9 (Primary) 2 . T ype 2 diabetes mellitus without complication, without long-term current use of insulin - E11.9 3 . E ssential hypertension - I10 4 . M ixed hyperlipidemia - E78.2 & #160; 5 . A nxiety with depression - F41.8 6 . C hronic obstructive pulmonary disease, unspecified COPD type - J44.9 7 . T obacco use disorder - Z72.0 8 . P rimary insomnia - F51.01 9 . B NJ 32.0-32.9,adult - Z68.32? Plan: * Treatment: Value Reference Range A /G Ratio 1.7 1.1-2.5 - * A lbumin 4.5 3.5-5.3 - g/dL * A lkaline Phosphatase 87 40-129 - IU/L * A LT (SGPT) 17 <5-55 - IU/L * A ST (SGOT) 15 <5-46 - IU/L * B ilirubin, Total 0.3 <0.2-1.2 - mg/dL * B UN 21 8-23 - mg/dL * C alcium 9.9 8.6-10.4 - mg/dL * C hloride 104 97-108 - mmol/L * C O2 26 22-32 - mmol/L * C reatinine 1.01 0.70-1.30 - mg/dL * G lucose 123 H 65-99 - mg/dL * P otassium 4.2 3.5-5.3 - mmol/L * S odium 141 135-145 - mmol/L * P rotein 7.1 6.0-8.3 - g/dL * e GFR by Creatinine 84 >59 - mL/min/1.73m2 * Hina Odell 09/18/2024 1 2:35:44 PM >see TE ?LAB: Glycohemoglobin A1c (in house) (Collection Date & Time - 09/10/2024)? 7.8%* Value Reference Range g lycohemoglobin 7.8% 5 - 6.5 % * Gunjan Herndon 09/10/2024 10: 02:35 AM > Hina Odell 09/18/2024 12:35:44 PM >see TE 2.?Essential hypertension?LAB: CBC Venipuncture (in house) (Collection Date & Time - 09/10/2024)? Normal* Value Reference Range w bc 5.5 3.5 - 10 * l ymph 26.5 15 - 50 * m id 7.0 2 - 15 * g ran 66.5 35 - 80 * r bc 4.76 3.5 - 5.5 * h gb 13.6 11.5 - 16.5 * h ct 40.9 35 - 55 * m cv 85.9 75 - 100 * m ch 28.5 25 - 35 * m chc 33.2 31 - 38 * p latlet 190 100 - 400 * Gunjan Herndon 09/10/2024 10: 00:26 AM > 3.?Mixed hyperlipidemia?LAB: P-Lipid Panel (Collection Date & Time - 09/10/2024 08:32 AM)* Value Reference Range C holesterol / HDL Ratio 5.24 H 0.00-4.99 - Ratio * C holesterol 178 <200 - mg/dL * H DL Cholesterol 34 L >39 - mg/dL * L DL Cholesterol (Calculation) 105 <130 - mg/d L * L DL/HDL Ratio 3.1 <3.3 - Ratio * N on-HDL Cholesterol 144 H <130 - mg/dL * T riglycerides 193 H <150 - mg/dL * Hina Odell 09/18/2024 1 2:35:44 PM >see TE 4.?Tobacco use disorder?LAB: P-Nicotine and Metabolites, Serum or Plasma, Quantitative (Collection Date & Time - 09/10/2024 08:32 AM)* Value Reference Range C otinine, Serum/Plasma <5 - ng/mL * N icotine, Serum/Plasma <5 - ng/mL * Hina Odell 09/18/2024 1 2:35:44 PM >see TE ?Imaging: CT SCAN : CHEST, LUNG CANCER SCREENING LOW DOSE (Performed Date - 09/30/2024)* Kailey Temple 09/25/2024 4:20: 44 PM > auth#[id number]; valid 09/25/2024 through 11/24/2024; CPT Code 97951; faxed to [facility] Gunjan Jordan 10/10/2024 11:27:01 AM EDT > See phone encounter Notes: He has been off of nicotine for 30 days. Will check a level today.?? 5.?Primary insomnia? Refill traZODone HCl Tablet, 50 MG, TAKE 1 TABLET BY MOUTH AT BEDTIME NEEDED, Orally, qhs, 90 days, 90, Refills 3.?? * Procedure Codes: 8 3036 GLYCATED HEMOGLOBIN TEST, Modifiers: QW , [address] CBC WITH AUTO DIFF, 3051F HG A1C>EQUAL 7.0%<8.0%, 3074F SYST BP LT 130 MM HG, 3078F DIAST BP < 80 MM HG * Follow Up: v ia phone to report test results * Images: Billing Information: * Visit Code: 80734 Office Visit, Est Pt., Level 4. * Procedure Codes: 40777 GLYCATED HEMOGLOBIN TEST. Modifiers: QW 99602 CBC WITH AUTO DIFF. 3051F HG A1C>EQUAL 7.0%<8.0%. 3074F SYST BP LT 130 MM HG. 3078F DIAST BP < 80 MM HG. * Electronic signature of MIA Mccullough on 02/25/2025 at 01:28 PM EDT Sign off status: Pending * Provider: MIA Benitez Date: 0 09/10/2024 Generated for Printi ng/Faxing/eTransmitting on: 1 01:28 PM EDT History and Physical Notes * HPI (History of Present Illness) Category Sub-Category Detail Notes Category Not es HPI Patient is here today for to get labs drawn to check his nicotine levels. Pt sts that he stopped smoking 31 days ago and cannot have hip surgery until he is free of any nicotine. Pts that he needs a refill of Trazodone and Ozempic today as well - needs nicotine level faxed to [facility] Examination Category Sub-Category Detail Notes Category Not es General Examination HEENT: unremarkable Heart: RSR Lungs: clear to auscultatio n Abdomen: bowel sounds present , soft and nontender , no organomegaly or masses Extremities: no leg edema General Appearance: NAD Skin: normal, no rash Neurologic Exam: Intact, gait normal Neck: supple, no lymphaden opathy Oral cavity: no lesions, mucosa m oist and WNL, no erythema Peripheral pulses: normal (2+) bilatera lly Chest: normal shape and exp ansion
--- OUTSIDE RECORDS SUMMARY | 2024-09-25 10:30 | XMS_ITS ---
Author Organization [facility] Address [address] [facility] [address] [place] [id number] Care Team Providers Care Relationship Mgr Name Role Phone Burke Smith Primary Care Provider REASON FOR VISIT 2 month check Encounters Encounter Location Date Provider Diagnosis [facility] [address] [place] [id number] 09/25/2024 Burke Smith Plan Of Treatment Next Appt Details Provider Name:Hina houston, 02/26/2025 04:00:00 PM, [address], [address], [place], [phone], Progress Notes * ARRON BROWNDOB:[birth year] (59 yo M)Acc No.[id number]:09/25/2024 Progress Notes Patient: ARRON JACKSON Provider: Burke Smith M.D. :1965 A ge:59 Y S ex:Male Date:09/25/2024 Address:[address] [facility] [address] [address], [id number] Subjective: * Chief Complaints: * 1 . 2 month check. * Medical History: Objective: * Vitals: Assessment: Plan: * Treatment: * Images: Billing Information: * Visit Code: * Procedure Codes: * Electronic signature of Burke Smith MD on 02/25/2025 at 01:27 PM EDT Sign off status: Pending * Provider: Burke Smith M.D. Date: 0 09/25/2024 Generated for Cecilio fofana/Blake/Parisitting on: 1 01:27 PM EDT
--- OUTSIDE RECORDS SUMMARY | 2024-11-17 06:45 | XMS_ITS ---
Author Organization [facility] Address [address] [facility] 36 [facility] [address] [place] [id number] Care Team Providers Care Commercial Sales Specialist Name Role Phone Burke Smith Primary Care Provider Haley Hester [phone] REASON FOR VISIT depression Encounters Encounter Location Date Provider Diagnosis [facility] [facility] [address] [facility] [address] [place] [phone] 11/17/2024 Haley Hester Plan Of Treatment Next Appt Details Provider Name:Hina Wallis y, 02/26/2025 04:00:00 PM, [address] [facility] [address], [place], [phone], Progress Notes * NAOMIARRONDOB:[birth year] (59 yo M)Acc No.[id number]:11/17/2024 Progress Notes Patient: ARRON JACKSON Provider: FRANKIE Izquierdo :1965 A ge:59 Y S ex:Male Date:11/17/2024 Address:[address] [facility] [id number] Pcp:Burke Smith Subjective: * Chief Complaints: * 1 . Depression. * Medical History: Objective: * Vitals: Assessment: Plan: * Treatment: * Images: Billing Information: * Visit Code: * Procedure Codes: * Electronic signature of Stephanie Hester APRN on 02/25/2025 at 01:28 PM EDT Sign off status: Pending * Provider: FRANKIE Izquierdo Date: 0 11/17/2024 Generated for Cecilio fofana/Blake/Ernesto on: 1 01:28 PM EDT
--- OUTSIDE RECORDS SUMMARY | 2024-11-27 11:30 | XMS_ITS ---
Author Organization [facility] Address [address] [facility] [address] [place] [id number] Care Team Providers Care Binder Chainstitch Name Role Phone Burke Smith Primary Care Provider [phone] Allergies No Known Allergies REASON FOR VISIT follow up for Hina Medications Medication SIG (Take, Route, Frequency, Duration) Notes Start Date End Date Status Albuterol Sulfate HFA 108 (90 Base) MCG/ACT INHALE 2 PUFF(S) BY MOUTH EVERY 6 HOURS NEEDED; Duration: 25 Active Omeprazole 40 MG TAKE 1 CAPSULE BY [facility] ONCE DAILY; Duration: 30 Active Neurontin 600 MG 1 tablet Orally Four times a day; Duration: 30 days 10/17/2024 Active Celecoxib 200 MG 1 capsule Orally Onc e a day; Duration: 30 days Active Triamterene-HCTZ 37.5-25 MG 1 tab(s) Orally Once a day; Duration: 90 days Active Zoloft 100 MG 1 tablet Orally Once a day; Duration: 30 days 11/20/2024 Active Tamsulosin HCl 0.4 MG TAKE 1 CAPSULE BY MOUTH AT BEDTIME; Duration: 30 Active Atorvastatin Calcium 20 MG 1 tablet Orally Once a day; Duration: 90 days Active Mupirocin 2 % 1 application Aircraft Sales Representative ally Twice a day; Duration: 5 day(s) 05/12/2024 Active Ozempic (1 MG/DOSE) 4 MG/3ML INJECT 1 MG ONCE A WEEK SUBCUTANEOUSLY Subcutaneous once a week Active hydrOXYzine HCl 25 MG 1 tab Orally 4 consuelo es a day, prn 11/20/2024 Active metFORMIN HCl 500 MG 1 tablet with a fartun l Orally Once a day; Duration: 30 days Active Fluticasone Propionate 50 MCG/ACT as directed in each nostril once a day; Duration: 30 day(s) 03/06/2022 Active Vital Signs Blood pressure systolic 124 mm Hg 11/28/19 25 Blood pressure diastolic 80 mm Hg 025 Heart Rate 101 /min 11/27/2024 Height 73 in 11/27/2024 Weight 223.4 lbs 11/27/2024 BMI 29.47 kg/m2 11/27/2024 Encounters Encounter Location Date Provider Diagnosis [facility] [address] [facility] 36 [facility] [address] [place] [id number] 11/27/2024 Burke Smith Anxiety with depression F41.8 ; Alcoholism in remission F10.21 ; Status post right hip replacement Z96.641 and BMI 29.0-29.9,adult Z68.29 Assessments Encounter Date Diagnosis (ICD Code) Assessment Notes Treatment Notes Treatment Clinical Notes Section Notes 11/27/2024 Anxiety with depression (ICD-10 - F41.8) 11/27/2024 Alcoholism in remission (ICD-10 - F10.21) 11/27/2024 Status post right hip replacement (ICD-10 - Z96.641) 11/27/2024 BMI 29.0-29.9,adult (ICD-10 - Z68.29) Plan Of Treatment Medication Medication Name Sig Start Date Stop Date Notes Zoloft 100 MG 1 tablet Orally Once a day; Duration: 30 days 11/20/2024 Next Appt Details Follow Up: 1 Week, Reason: Provider Name:Hina houston, 02/26/2025 04:00:00 PM, [address] [facility] 36 [facility], [address], [place], [id number], Progress Notes * ARRON BROWNDOB:[birth year] (59 yo M)Acc No.[id number]:11/27/2024 Progress Notes Patient: ARRON JACKSON Provider: Burke Smith M.D. :1965 A ge:59 Y S ex:Male Date:11/27/2024 Address:[address] [place] [address] , [id number] Subjective: * Chief Complaints: * 1 . follow up for Hina. * HPI: P sychology: The patient is here for a follow-up on Depression with anxiety. Pt states he has had several issues since he stopped smoking. Pt states he had his right hip replacement in September and that is doing better. Pt states he is having a lot of stress and worry since he had the chest CT. Pt states he is having a lot of anxiety and depression. Pt saw Hina, and she gave Zoloft and Hydroxyzine and that has helped some, but he is not sleeping very well. 59 year old male presents with c/o stress. * ROS: D ERMATOLOGY: no R ivory. [...] - dr Harding 09/2020, colonoscopy, Dr. Staton, [facility] , , [facility] 10/22/2024. * Hospitalization/Major Diagno stic Procedure: H [...] Orally Four times a day , Taking Celecoxib 200 MG [...] a meal Orally Once a day , Taking Zoloft 100 MG Tablet 1/2 tab x 2 weeks then increase to 1 tab daily Orally Once a day , Taking hydrOXYzine HCl 25 MG Tablet 1 tab Orally 4 times a day, prn , Medication List reviewed and reconciled with the patient * Allergies: N .K.D.A. Objective: * Vitals: W t: 223.4, Temp: 98.6, BP: 124/80, HR: 101, Nurse: SHELLI, Ht: 73, BMI:29.47. * Examination: G eneral Examination: General Appearance: N AD. H EENT: u nremarkable.?Oral cavity: n o lesions, mucosa moist and WNL, no erythema. N giuliano: s upple, no lymphadenopathy. C hest: n ormal shape and expansion. H eart: R SR. L ungs: c lear to auscultation. N eurologic Exam: I ntact, gait normal. P eripheral pulses: n ormal . B ack: n ontender . Assessment: * Assessment: 1. A nxiety with depression - F41.8 (Primary) 2 . A lcoholism in remission - F10.21 3 . S tatus post right hip replacement - Z96.641 4 .?BMI 29.0-29.9,adult - Z68.29 Plan: * Treatment: * Procedure Codes: 3 074F SYST BP LT 130 MM HG, 3079F DIAST BP 80-89 MM HG * Follow Up: 1 Week * Images: Billing Information: * Visit Code: 99979 Office Visit, Est Pt., Level 3. * Procedure Codes: 3074F SYST BP LT 130 MM HG. 3079F DIAST BP 80-89 MM HG. * Electronic signature of Burke Smith MD on 02/25/2025 at 01:28 PM EDT Sign off status: Pending * Provider: Burke Smith M.D. Date: 0 11/27/2024 Generated for Letyi ng/Blake/eTransmitting on: 1 01:28 PM EDT History and Physical Notes * HPI (History of Present Illness) Category Sub-Category Detail Notes Category Not es Psychology stress Examination Category Sub-Category Detail Notes Category Not es General Examination HEENT: unremarkable Heart: RSR Lungs: clear to auscultatio n General Appearance: NAD Skin: Neurologic Exam: Intact, gait normal Neck: supple, no lymphaden opathy Oral cavity: no lesions, mucosa m oist and WNL, no erythema Peripheral pulses: normal Back: nontender Chest: normal shape and exp ansion
--- OUTSIDE RECORDS SUMMARY | 2025-01-12 06:45 | XMS_ITS ---
Author Organization [facility] Address [address] [facility] [address] [place] [id number] Care Team Providers Care Phlebotomy Services Representative Name Role Phone Burke Smith Primary Care Provider Allergies No Known Allergies REASON FOR VISIT 2 months Medications Medication SIG (Take, Route, Frequency, Duration) Notes Start Date End Date Status Albuterol Sulfate HFA 108 (90 Base) MCG/ACT INHALE 2 PUFF(S) BY MOUTH EVERY 6 HOURS NEEDED; Duration: 25 Active metFORMIN HCl 500 MG 1 tablet with a fartun l Orally Once a day; Duration: 30 days Active hydrOXYzine HCl 25 MG 1 tab Orally 4 consuelo es a day, prn Active Zoloft 100 MG 1 tablet Orally Once a day; Duration: 30 days Active Omeprazole 40 MG TAKE 1 CAPSULE BY [facility] twice a day; Duration: 60 days Active Tamsulosin HCl 0.4 MG TAKE [...] e a day; Duration: 30 days Active Fluticasone Propionate 50 MCG/ACT as directed in each nostril once a day; Duration: 30 day(s) 03/06/2022 Active Mupirocin 2 % 1 application Atmospheric Technician ally Twice a day; Duration: 5 day(s) 05/12/2024 Active Ozempic (1 MG/DOSE) 4 MG/3ML INJECT 1 MG ONCE A WEEK SUBCUTANEOUSLY Subcutaneous once a week Active Vital Signs Blood pressure systolic 120 mm Hg 01/13/20 25 Blood pressure diastolic 70 mm Hg 025 Heart Rate 85 /min 01/12/2025 Height 73 in 01/12/2025 Weight 225.4 lbs 01/12/2025 BMI 29.73 kg/m2 01/12/2025 Encounters Encounter Location Date Provider Diagnosis [facility] [address] [facility] 36 [facility] [address] [place], [place] [phone] 01/12/2025 Burke CurryDamon Luis Type 2 diabetes mellitus without complication, without long-term current use of insulin E11.9 ; Chronic gastritis without bleeding, unspecified gastritis type K29.50 ; Essential hypertension I10 ; Arthropathy of knee M17.10 ; Anxiety with depression F41.8 and BMI 29.0-29.9,adult Z68.29 Assessments Encounter Date Diagnosis (ICD Code) Assessment Notes Treatment Notes Treatment Clinical Notes Section Notes 01/12/2025 Type 2 diabetes mellitus without complication, without long-term current use of insulin (ICD-10 - E11.9) 01/12/2025 Chronic gastritis without bleeding, unspecified gastritis type (ICD-10 - K29.50) 01/12/2025 Essential hypertension (ICD-10 - I10) 01/12/2025 Arthropathy of knee (ICD-10 - M17.10) 01/12/2025 Anxiety with depression (ICD-10 - F41.8) 01/12/2025 BMI 29.0-29.9,adult (ICD-10 - Z68.29) Plan Of Treatment Medication Medication Name Sig Start Date Stop Date Notes Omeprazole 40 MG TAKE 1 CAPSULE BY [facility] twice a day; Duration: 60 days Next Appt Details Follow Up: 4 Weeks, Reason: Provider Name:Hina houston, 02/26/2025 04:00:00 PM, [address] [facility] 36 [facility], [address], [place], [id number], Procedure Notes * Category Sub-Category Detail Notes Procedure-other Joint aspiration: consent signed , Betadine prep, 1 % lidocaine local, 21 guage 1 1/2 needle, DepoMedrol injected 1cc with 1cc Lidocaine, patient tolerated the procedure well, patient had significant pain relief, H2O2, Band Aid applied Progress Notes * ARRON BROWNDOB:[birth year] (59 yo M)Acc No.[id number]:01/12/2025 Progress Notes Patient: ARRON JACKSON Provider: Burke Smith M.D. :1965 A ge:59 Y S ex:Male Date:01/12/2025 Address:[address] [place] [address] [place], [id number] Subjective: * Chief Complaints: * 1 . 2 months. * HPI: P sychology: 59 year old male presents with c/o stress P t is here today for a 2 month f/u on stress, anxiety, and depression. c/o Anxiety. c/o depression. H PI: c/o Patient is here today for P t sts he would like to discuss a shot in his rt knee. G astroenterology: Getting nauseated while working. He thinks anxiety related. Denies chest pain, but can feel SOA. Sometimes vomits small amount. * Medical History: R ecovering alcoholic and [...] - dr Harding 09/2020, colonoscopy, Dr. Staton, [facility] , , [facility] 10/22/2024. * Hospitalization/Major Diagno stic [...] meal Orally Once a day , Taking hydrOXYzine HCl 25 MG Tablet 1 tab Orally 4 times a day, prn , Taking Zoloft 100 MG Tablet 1 tablet Orally Once a day , Medication List reviewed and reconciled with the patient * Allergies: N .K.D.A. Objective: * Vitals: W t: 225.4, Temp: 98.7, BP: 120/70, HR: 85, Nurse: zayda, Ht: 73, BMI:29.73. * Examination: G eneral Examination: General Appearance: [...] ormal . B ack: n ontender . K nee / Gonzalez: Inspection: o steoarthritic change, no effusion. Assessment: * Assessment: 1. T ype 2 diabetes mellitus without complication, without long-term current use of insulin - E11.9 (Primary) 2 . C hronic gastritis without bleeding, unspecified gastritis type - K29.50 3 . E ssential hypertension - I10 4 . A rthropathy of knee - M17.10 5 . A nxiety with depression - F41.8 6 .?BMI 29.0-29.9,adult - Z68.29 Plan: * Treatment: * Procedures: P rocedure-other: Joint aspiration: c onsent signed, Betadine prep, 1 % lidocaine local, 21 guage 1 1/2 needle, DepoMedrol injected 1cc with 1cc Lidocaine, patient tolerated the procedure well, patient had significant pain relief, H2O2, Band Aid applied. * Procedure Codes: 2 0610 DRAIN/INJECT BURSA,SHOULDER,HIP,KNEE, SUBACROMIAL BURSA, J1010 Inj, methylpred acetate 1 mg, 1036F TOBACCO NON-USER, 3074F SYST BP LT 130 MM HG, 3078F DIAST BP < 80 MM HG * Follow Up: 4 Weeks * Images: Billing Information: * Visit Code: 68768 Office Visit, Est Pt., Level 4. Modifiers: 25 * Procedure Codes: 69353 DRAIN/INJECT BURSA,SHOULDER,HIP,KNEE, SUBACROMIAL BURSA. J1010 Inj, methylpred acetate 1 mg. 1036F TOBACCO NON-USER. 3074F SYST BP LT 130 MM HG. 3078F DIAST BP < 80 MM HG. * Electronic signature of Burke Smith MD on 02/25/2025 at 01:28 PM EDT Sign off status: Pending * Provider: Burke Smith M.D. Date: 0 01/12/2025 Generated for Cecilio fofana/Blake/eTransmitting on: 1 01:28 PM EDT History and Physical Notes * HPI (History of Present Illness) Category Sub-Category Detail Notes Category Not es Psychology stress Pt is here today for a 2 month f/u on stress, anxiety, and depression Anxiety depression HPI Patient is here today for Pt sts he would like to discuss a shot in his rt knee Examination Category Sub-Category Detail Notes Category Not es General Examination HEENT: unremarkable Heart: RSR Lungs: clear to auscultatio n General Appearance: NAD Skin: Neurologic Exam: Intact, gait normal Neck: supple, no lymphaden opathy Oral cavity: no lesions, mucosa m oist and WNL, no erythema Peripheral pulses: normal Back: nontender Chest: normal shape and exp ansion Knee / Gonzalez Inspection: osteoarthritic change, no ef fusion
--- OUTSIDE RECORDS SUMMARY | 2025-02-11 12:00 | XMS_ITS ---
Author Organization [facility] Address [address] [place] [id number] Care Team Providers Care Manufacturing Controller Name Role Phone Burke Smith Primary Care Provider Jose R Hina Unavailable [phone] Allergies No Known Allergies REASON FOR VISIT 4 week ckup Medications Medication SIG (Take, Route, Frequency, Duration) Notes Start Date End Date Status Atorvastatin Calcium 20 MG 1 tablet Orally Once a day; Duration: 90 days Active Tamsulosin HCl 0.4 MG 1 capsule at bedti me Orally Once a day; Duration: 90 days Active Fluticasone Propionate 50 MCG/ACT as directed in each nostril once a day; Duration: 30 day(s) 03/06/2022 Active Triamterene-HCTZ 37.5-25 MG 1 tab(s) Orally Once a day; Duration: 90 days Active Zoloft 100 MG 1.5 tab Orally Once a day Active hydrOXYzine HCl 25 MG 1 tab Orally 4 consuelo es a day, prn Active Celecoxib 200 MG 1 capsule Orally Onc e a day; Duration: 30 days Active Albuterol Sulfate HFA 108 (90 Base) MCG/ACT 2 puffs as needed Inhalation every 6 hrs; Duration: 25 days Active metFORMIN HCl 500 MG 1 tablet with a fartun l Orally Once a day; Duration: 30 days Active Omeprazole 40 MG TAKE 1 CAPSULE BY [facility] twice a day; Duration: 60 days Active Neurontin 600 MG 1 tablet Orally Four times a day; Duration: 30 days 10/17/2024 Active Ozempic (1 MG/DOSE) 4 MG/3ML INJECT 1 MG ONCE A WEEK SUBCUTANEOUSLY Subcutaneous once a week Active Mupirocin 2 % 1 application Cook Night ally Twice a day; Duration: 5 day(s) 05/12/2024 Active Vital Signs Blood pressure systolic 130 mm Hg 02/12/20 25 Blood pressure diastolic 72 mm Hg 025 Heart Rate 84 /min 02/11/2025 Height 73 in 02/11/2025 Weight 217.2 lbs 02/11/2025 BMI 28.65 kg/m2 02/11/2025 Encounters Encounter Location Date Provider Diagnosis [facility] [address] [facility] 36 [facility] [address] [place], [place] [phone] 02/11/2025 Hina Childsmilana Type 2 diabetes sae itus without complication, without long-term current use of insulin E11.9 ; Chronic gastritis without bleeding, unspecified gastritis type K29.50 ; Essential hypertension I10 and Anxiety with depression F41.8 Assessments Encounter Date Diagnosis (ICD Code) Assessment Notes Treatment Notes Treatment Clinical Notes Section Notes 02/11/2025 Type 2 diabetes mellitus without complication, without long-term current use of insulin (ICD-10 - E11.9) Will come back for fasting labs: CBC, CMP, Lipid, A1C, Vit D, Vit B12 02/11/2025 Chronic gastritis without bleeding, unspecified gastritis type (ICD-10 - K29.50) 02/11/2025 Essential hypertension (ICD-10 - I10) 02/11/2025 Anxiety with depression (ICD-10 - F41.8) Plan Of Treatment Medication Medication Name Sig Start Date Stop Date Notes Zoloft 100 MG 1.5 tab Orally Once a day Treatment Notes Assessment Notes Type 2 diabetes mellitus wit hout complication, without long-term current use of insulin Will come back for fasting labs: CBC, CMP, Lipid, A1C, Vit D, Vit B12 Next Appt Details Follow Up: via phone to repo rt test results, Reason: Provider Name:Hina houston, 02/26/2025 04:00:00 PM, [address] [facility] 36 [facility], [address], [place], [id number], Progress Notes * ARRON BROWNDOB:[birth year] (59 yo M)Acc No.[id number]:02/11/2025 Progress Notes Patient: ARRON JACKSON Provider: MIA Benitez :1965 A ge:59 Y S ex:Male Date:02/11/2025 Address:[address] [place] [address] [id number] Pcp:Burke Smith Subjective: * Chief Complaints: * 1 . 4 week ckup. * HPI: P sychology: 59 year old male presents with c/o Anxiety 4 week f/u on anxiety and the new medication he is on for anxiety. Pt states the medication is helping some but he thinks the dose may need to be increased.. H PI: c/o Patient is here today for W ould also like labs but is not fasting today.. * ROS: D ERMATOLOGY: no R ivory. [...] - dr Harding 09/2020, colonoscopy, Dr. Staton, [facility] , , [facility] 10/22/2024. * Hospitalization/Major Diagno stic [...] SUBCUTANEOUSLY Subcutaneous once a week , Taking Neurontin 600 MG Tablet 1 tablet Orally Four times a day , Taking Celecoxib 200 MG Capsule 1 capsule Orally Once a day , Taking hydrOXYzine HCl 25 MG Tablet 1 tab Orally 4 times a day, prn , Taking Zoloft 100 MG Tablet 1 tablet Orally Once a day , Taking Omeprazole 40 MG Capsule Delayed Release TAKE 1 CAPSULE BY MOUTH twice a day , Taking metFORMIN HCl 500 MG Tablet 1 tablet with a meal Orally Once a day , Taking Albuterol Sulfate HFA 108 (90 Base) MCG/ACT Aerosol Solution 2 puffs as needed Inhalation every 6 hrs , Taking Atorvastatin Calcium 20 MG Tablet 1 tablet Orally Once a day , Taking Triamterene-HCTZ 37.5-25 MG Tablet 1 tab(s) Orally Once a day , Taking Tamsulosin HCl 0.4 MG Capsule 1 capsule at bedtime Orally Once a day , Medication List reviewed and reconciled with the patient * Allergies: N .K.D.A. Objective: * Vitals: W t: 217.2, Temp: 98.3, BP: 130/72, HR: 84, Nurse: pe, Ht: 73, BMI:28.65. * Examination: G eneral Examination: General Appearance: N AD. H EENT: u nremarkable.?Oral cavity: n o lesions, mucosa moist and WNL, no erythema. N giuliano: s upple, no lymphadenopathy. C hest: n ormal shape and expansion. H eart: R SR. L ungs: c lear to auscultation. A bdomen: s oft and nontender, bowel sounds present. N eurologic Exam: I ntact, gait normal. S kin: n ormal, no rash. P eripheral pulses: n ormal (2+) bilaterally. E xtremities: n o leg edema. Assessment: * Assessment: 1. T ype 2 diabetes mellitus without complication, without long-term current use of insulin - E11.9 (Primary) 2 . C hronic gastritis without bleeding, unspecified gastritis type - K29.50 3 . E ssential hypertension - I10 4 . A nxiety with depression - F41.8 Plan: * Treatment: 2. A nxiety with depression Increase Zoloft Tablet, 100 MG, 1.5 tab, Orally, Once a day. * Procedure Codes: 1 036F TOBACCO NON-USER, 3075F SYST BP GE 130 - 139MM HG, 3078F DIAST BP < 80 MM HG * Follow Up: v ia phone to report test results * Images: Billing Information: * Visit Code: 88714 Office Visit, Est Pt., Level 4. * Procedure Codes: 1036F TOBACCO NON-USER. 3075F SYST BP GE 130 - 139MM HG. 3078F DIAST BP < 80 MM HG. * Electronic signature of MIA Mccullough on 02/25/2025 at 01:28 PM EDT Sign off status: Pending * Provider: MIA Benitez Date: Generated for Cecilio fofana/Blake/eTransmitting on: 01:28 PM EDT History and Physical Notes * HPI (History of Present Illness) Category Sub-Category Detail Notes Category Not es Psychology Anxiety 4 week f/u on an xiety and the new medication he is on for anxiety. Pt states the medication is helping some but he thinks the dose may need to be increased. HPI Patient is here today for Would also like labs but is not fasting today. Examination Category Sub-Category Detail Notes Category Not es General Examination HEENT: unremarkable Heart: RSR Lungs: clear to auscultatio n Abdomen: soft and nontender, bowel sounds present Extremities: no leg edema General Appearance: NAD Skin: normal, no rash Neurologic Exam: Intact, gait normal Neck: supple, no lymphaden opathy Oral cavity: no lesions, mucosa m oist and WNL, no erythema Peripheral pulses: normal (2+) bilatera lly Chest: normal shape and exp ansion
--- OUTSIDE RECORDS SUMMARY | 2025-02-12 07:20 | XMS_ITS ---
Author Organization [facility] Address [address] [facility] 2C INGE [place] [id number] Care Team Providers Care Flue Gas Analyst Name Role Phone Burke Smith Primary Care Provider [phone] Hnia Odell Unavailable [phone] Results Component Value Reference Range Notes CBC Venipuncture (in house) Reviewed date:02/18/2025 09:39:21 AM Interpretation:Normal Performing Lab: Notes/Report: Normal wbc 4.6 3.5 - 10 lymph 33.3 15 - 50 mid 6.0 2 - 15 gran 60.7 35 - 80 rbc 4.79 3.5 - 5.5 hgb 11.7 11.5 - 16.5 hct 36.2 35 - 55 mcv 75.7 75 - 100 mch 24.5 25 - 35 mchc 32.4 31 - 38 platlet 260 100 - 400 Glycohemoglobin A1c (in hous e) Reviewed date:02/18/2025 09:39:21 AM Interpretation:Normal Performing Lab: Notes/Report: Normal glycohemoglobin 6.3% 5 - 6.5 % P-Vitamin B12 Reviewed date:02/18/2025 09:39:21 AM Interpretation:Normal Performing Lab: Notes/Report: Test performed by [facility], [email or web address] [address] [address] , [address], [place] [address] Colton Cruz MD, Fitting Room Associate CLIA: [id number] Vitamin B12 681 030-9674 pg/mL P-Comprehensive Metabolic Pa rob (CMP) Reviewed date:02/18/2025 09:39:21 AM Interpretation:Normal Performing Lab: Notes/Report: Test performed by [facility] [address] [place] [address] , [address], [place] [address] Colton Cruz MD, Fitting Room Associate CLIA: [id number] Sodium 140 135-145 mmol/L Potassium 3.8 3.5-5.3 mmol/L Chloride 102 97-108 mmol/L CO2 26 20-32 mmol/L Glucose 114 65-99 mg/dL BUN 14 8-23 mg/dL Creatinine 1.24 0.70-1.30 mg/dL Calcium 10.1 8.6-10.4 mg/dL eGFR by Creatinine 66 >59 mL/min/1.73m2 Protein 7.0 6.0-8.3 g/dL Albumin 4.4 3.5-5.3 g/dL Alkaline Phosphatase 83 40-129 IU/L ALT (SGPT) 12 <5-55 IU/L AST (SGOT) 15 <5-46 IU/L Bilirubin, Total 0.4 <0.2-1.2 mg/dL A/G Ratio 1.7 1.1-2.5 P-Lipid Panel Reviewed date:02/18/2025 09:39:21 AM Interpretation:HDL 32, TC/HDL 5.50, Non-HDL 144, LDL 117, LDL/HDL 3.65 Performing Lab: Notes/Report: Test performed by [facility] [address] [place] [address] , [address], [place] [address] Colton Cruz MD, Fitting Room Associate CLIA: [id number] Lipid Panel Footnote See Below *Based on optimal reference values. Please refer to the DOS for additional information regarding diagnostic lipid reference ranges, patient management based on the recently updated lipid guidelines ([employer] [employer] Task Force on Clinical Practice Guidelines (2018), and pediatric diagnostic lipid reference values (<18 years old). Total Cholesterol 176 <200 mg/dL Triglycerides 136 <150 mg/dL HDL Cholesterol 32 >40 mg/dL Total Cholesterol / HDL Ratio* 5.50 <4.99 Rati o Non-HDL Cholesterol 144 <130 mg/dL LDL Cholesterol (Calculation) 117 <100 mg/dL LDL / HDL Ratio* 3.65 <2.49 Ratio LDL Cholesterol Patient History Test Date: 05/12/2024 LDL Results: 122 Units: mg/dL % Change: - Test Date: 09/10/2024 LDL Results: 105 Units: mg/dL % Change: -13% Test Date: 02/12/2025 LDL Results: 117 Units: mg/dL % Change: +11% P-Vitamin D 25-Hydroxy Reviewed date:02/18/2025 09:39:21 AM Interpretation:40 Performing Lab: Notes/Report: Test performed by [facility] [address] [facility] , [facility] [place] [address] Colton Cruz MD, Fitting Room Associate CLIA: [id number] Vitamin D 25-Hydroxy 40.0 30.0-100.0 ng/mL Interpretation of Vitamin D 25 OH: < 20 ng/mL - Deficiency 20 - 29 ng/mL - Insufficiency 30 - 100 ng/mL - Sufficiency > 100 ng/mL - Super-therapeutic- toxicity may occur above this level. Clinical correlation required. REASON FOR VISIT blood work Medications Medication SIG (Take, Route, Frequency, Duration) Notes Start Date End Date Status Mupirocin 2 % 1 application Yard Manager ally Twice a day; Duration: 5 day(s) 05/12/2024 Active Fluticasone Propionate 50 MCG/ACT as directed in each nostril once a day; Duration: 30 day(s) 03/06/2022 Active Ozempic (1 MG/DOSE) 4 MG/3ML INJECT 1 MG ONCE A WEEK SUBCUTANEOUSLY Subcutaneous once a week Active Celecoxib 200 MG 1 capsule Orally Onc e a day; Duration: 30 days Active Neurontin 600 MG 1 tablet Orally Four times a day; Duration: 30 days 10/17/2024 Active Zoloft 100 MG 1.5 tab Orally Once a day Active Tamsulosin HCl 0.4 MG 1 capsule at [facility] Orally Once a day; Duration: 90 days Active Albuterol Sulfate HFA 108 (90 Base) MCG/ACT 2 puffs as needed Inhalation every 6 hrs; Duration: 25 days Active Triamterene-HCTZ 37.5-25 MG 1 tab(s) Orally Once a day; Duration: 90 days Active Atorvastatin Calcium 20 MG 1 tablet Orally Once a day; Duration: 90 days Active metFORMIN HCl 500 MG 1 tablet with a fartun l Orally Once a day; Duration: 30 days Active Omeprazole 40 MG TAKE 1 CAPSULE BY [facility] twice a day; Duration: 60 days Active hydrOXYzine HCl 25 MG 1 tab Orally 4 consuelo es a day, prn Active Encounters Encounter Location Date Provider Diagnosis [facility] [address] [facility] [address] [place], [place] [id number] 02/12/2025 Hina Odell Type 2 diabetes sae itus without complication, without long-term current use of insulin E11.9 ; Chronic fatigue R53.82 ; Essential hypertension I10 and Mixed hyperlipidemia E78.2 Assessments Encounter Date Diagnosis (ICD Code) Assessment Notes Treatment Notes Treatment Clinical Notes Section Notes 02/12/2025 Type 2 diabetes mellitus without complication, without long-term current use of insulin (ICD-10 - E11.9) 02/12/2025 Chronic fatigue (ICD-10 - R53.82) 02/12/2025 Essential hypertension (ICD-10 - I10) 02/12/2025 Mixed hyperlipidemia (ICD-10 - E78.2) Plan Of Treatment Next Appt Details Provider Name:Hina houston, 02/26/2025 04:00:00 PM, [address], [address], [place], [place], [id number], Progress Notes * NAOMIARRON CAPPSDOB:[birth year] (59 yo M)Acc No.[id number]:02/12/2025 Patient: ARRON JACKSON Provider: MIA Benitez :1965 A ge:59 Y S ex:Male Date:02/12/2025 Address:[address] [place] [address] , [id number] Pcp:Burke Smith Subjective: * Chief Complaints: * 1 . Blood work. * Medical History: * Medications: T aking Fluticasone Propionate 50 [...] 4 times a day, prn , Taking Omeprazole 40 MG Capsule Delayed [...] at bedtime Orally Once a day , Taking Zoloft 100 MG Tablet 1.5 tab Orally Once a day , Medication List reviewed and reconciled with the patient Objective: * Vitals: Assessment: * Assessment: 1. T ype 2 diabetes mellitus without complication, without long-term current use of insulin - E11.9 2 . C hronic fatigue - R53.82 3 . E ssential hypertension - I10 4 . M ixed hyperlipidemia - E78.2 Plan: * Treatment: Value Reference Range g lycohemoglobin 6.3% 5 - 6.5 % * Leyla Guerrero 02/12/2025 01:02:08 PM EDT > Gunjan Herndon 02/18/2025 09:39:13 AM EDT > See phone encounter 2.?Chronic fatigue?LAB: P-Vitamin B12 (Collection Date & Time - 02/12/2025 10:45 AM)?Normal* Value Reference Range V itamin B12 098 000-1857 - pg/mL * Gunjan Herndon 02/18/2025 09 :39:13 AM EDT > See phone encounter ?LAB: P-Vitamin D 25-Hydroxy (Collection Date & Time - 02/12/2025 10:45 AM)? 40* Value Reference Range V itamin D 25-Hydroxy 40.0 30.0-100.0 - ng/mL * Gunjan Herndon 02/18/2025 09 :39:13 AM EDT > See phone encounter ?LAB: CBC Venipuncture (in house) (Collection Date & Time - 02/12/2025)? Normal* Value Reference Range w bc 4.6 3.5 - 10 * l ymph 33.3 15 - 50 * m id 6.0 2 - 15 * g ran 60.7 35 - 80 * r bc 4.79 3.5 - 5.5 * h gb 11.7 11.5 - 16.5 * h ct 36.2 35 - 55 * m cv 75.7 75 - 100 * m ch 24.5 25 - 35 * m chc 32.4 31 - 38 * p latlet 260 100 - 400 * Leyla Guerrero 02/12/2025 12:58:56 PM EDT > Gunjan Herndon 02/18/2025 09:39:13 AM EDT > See phone encounter 3.?Essential hypertension?LAB: P-Comprehensive Metabolic Panel (CMP) (Collection Date & Time - 02/12/2025 10:45 AM)?Normal* Value Reference Range A /G Ratio 1.7 1.1-2.5 - * A lbumin 4.4 3.5-5.3 - g/dL * A lkaline Phosphatase 83 40-129 - IU/L * A LT (SGPT) 12 <5-55 - IU/L * A ST (SGOT) 15 <5-46 - IU/L * B ilirubin, Total 0.4 <0.2-1.2 - mg/dL * B UN 14 8-23 - mg/dL * C alcium 10.1 8.6-10.4 - mg/dL * C hloride 102 97-108 - mmol/L * C O2 26 20-32 - mmol/L * C reatinine 1.24 0.70-1.30 - mg/dL * G lucose 114 H 65-99 - mg/dL * P otassium 3.8 3.5-5.3 - mmol/L * S odium 140 135-145 - mmol/L * P rotein 7.0 6.0-8.3 - g/dL * e GFR by Creatinine 66 >59 - mL/min/1.73m2 * Gunjan Herndon 02/18/2025 09 :39:13 AM EDT > See phone encounter 4.?Mixed hyperlipidemia?LAB: P-Lipid Panel (Collection Date & Time - 02/12/2025 10:45 AM)?HDL 32, TC/HDL 5.50, Non-HDL 144, LDL 117, LDL/HDL 3.65* Value Reference Range C holesterol / HDL Ratio 5.50 H <4.99 - Ratio * C holesterol 176 <200 - mg/dL * H DL Cholesterol 32 L >40 - mg/dL * L DL Cholesterol (Calculation) 117 H <100 - mg/d L * L DL/HDL Ratio 3.65 H <2.49 - Ratio * N on-HDL Cholesterol 144 H <130 - mg/dL * T riglycerides 136 <150 - mg/dL * L ipid Panel Footnote See Below - * Gunjan Herndon 02/18/2025 09 :39:13 AM EDT > See phone encounter * Procedure Codes: 8 5025 CBC WITH AUTO DIFF, 42580 GLYCATED HEMOGLOBIN TEST, Modifiers: QW , 3044F HG A1C LEVEL LT 7.0% * Images: Billing Information: * Visit Code: * Procedure Codes: 42522 CBC WITH AUTO DIFF. 52771 GLYCATED HEMOGLOBIN TEST. Modifiers: QW 3044F HG A1C LEVEL LT 7.0%. * Electronic signature of MIA Mccullough on 02/25/2025 at 01:29 PM EDT Sign off status: Pending * Provider: MIA Benitez Date: 1 Generated for Cecilio fofana/Blake/eTransmitting on: 01:29 PM EDT
--- OUTSIDE RECORDS SUMMARY | 2025-02-25 13:28 | XMS_ITS | Patient Health Record ---
Author Organization [facility] Address [address] [place] [id number] Care Team Providers Care Microelectronics Engineer Name Role Phone Burke Smith Primary Care Provider Klaudia Potts Unavailable [phone] Suraj Wiseman Unavailable [phone] Haley Hester Unavailable [phone] Hina Odell Unavailable [phone] Allergies No Known Allergies Results Component Value Reference Range Notes Glycohemoglobin A1c (in hous e) Reviewed date:11/10/2024 02:31:57 PM Interpretation: Performing Lab: Notes/Report: glycohemoglobin 6.9% 5 - 6.5 % P-Lipid Panel Reviewed date:02/18/2025 09:39:21 AM Interpretation:HDL 32, TC/HDL 5.50, Non-HDL 144, LDL 117, LDL/HDL 3.65 Performing Lab: Notes/Report: Test performed by [facility] [address] [place] [address] , [address], [place] [address] Colton Cruz MD, Network Announcer CLIA: [id number] Lipid Panel Footnote See Below *Based on optimal reference values. Please refer to the DOS for additional information regarding diagnostic lipid reference ranges, patient management based on the recently updated lipid guidelines ([place] [employer]/[place] [employer] Task Force on Clinical Practice Guidelines (2018), and pediatric diagnostic lipid reference values (<18 years old). Total Cholesterol 176 <200 mg/dL Triglycerides 136 <150 mg/dL HDL Cholesterol 32 >40 mg/dL Total Cholesterol / HDL Ratio* 5.50 <4.99 Ratio Non-HDL Cholesterol 144 <130 mg/dL LDL Cholesterol (Calculation) 117 <100 mg/dL LDL / HDL Ratio* 3.65 <2.49 Ratio LDL Cholesterol Patient History Test Date: 05/12/2024 LDL Results: 122 Units: mg/dL % Change: - Test Date: 09/10/2024 LDL Results: 105 Units: mg/dL % Change: -13% Test Date: 02/12/2025 LDL Results: 117 Units: mg/dL % Change: +11% P-Comprehensive Metabolic Pa rob (CMP) Reviewed date:02/18/2025 09:39:21 AM Interpretation:Normal Performing Lab: Notes/Report: Test performed by [facility] [address] [place] [address] , [address], [place] [address] Colton Cruz MD, Network Announcer CLIA: [id number] Sodium 140 135-145 mmol/L Potassium 3.8 3.5-5.3 [...] 0.4 <0.2-1.2 mg/dL A/G Ratio 1.7 1.1-2.5 P-Vitamin B12 Reviewed date:02/18/2025 09:39:21 AM Interpretation:Normal Performing Lab: Notes/Report: Test performed by [facility] [address] [place] [address] , [address], [place] [address] Colton Cruz MD, Network Announcer CLIA: [id number] Vitamin B12 824 372-3399 pg/mL Glycohemoglobin A1c (in hous e) Reviewed date:02/18/2025 09:39:21 AM Interpretation:Normal Performing Lab: Notes/Report: Normal glycohemoglobin 6.3% 5 - 6.5 % CBC Venipuncture (in house) Reviewed date:02/18/2025 09:39:21 [...] - 38 platlet 260 100 - 400 CT SCAN : CHEST, LUNG CANCER SCREENING LOW DOSE Reviewed date:10/10/2024 11:27:07 AM Interpretation: Performing Lab: Notes/Report: P-Nicotine and Metabolites, Serum or Plasma, Quantitative [...] developed and its performance characteristics determined by [facility]. It has not been cleared or approved by the US Food and Drug Administration. This test was performed in a CLIA certified laboratory and is intended for clinical purposes. Performed By: [facility] [address] [place] [address] Network Announcer: Anders Wooten MD, PhD CLIA Number: [id number] Cotinine, Serum/Plasma <5 P-Lipid Panel Reviewed date:09/18/2024 12:35:55 PM Interpretation: Performing Lab: Notes/Report: Test performed by [facility] [address] [place] [address] , [address], [place] [address] Colton Cruz MD, Network Announcer CLIA: [id number] Cholesterol 178 <200 mg/dL Triglycerides 193 <150 [...] Results: 105 Units: mg/dL % Change: -13% P-Comprehensive Metabolic Pa rob (CMP) Reviewed date:09/18/2024 12:35:55 PM Interpretation: Performing Lab: Notes/Report: Test performed by [facility] , [address], [place] [address] Colton Cruz MD, Network Announcer CLIA: [id number] Sodium 141 135-145 mmol/L Potassium 4.2 3.5-5.3 [...] 0.3 <0.2-1.2 mg/dL A/G Ratio 1.7 1.1-2.5 Glycohemoglobin A1c (in hous e) Reviewed date:09/18/2024 12:35:55 PM Interpretation:7.8% Performing Lab: Notes/Report: 7.8% glycohemoglobin 7.8% 5 - 6.5 % CBC Venipuncture (in house) Reviewed date:09/11/2024 03:53:42 [...] - 38 platlet 190 100 - 400 P-Vitamin D 25-Hydroxy Reviewed date:02/18/2025 09:39:21 AM Interpretation:40 Performing Lab: Notes/Report: Test performed by [facility] , [address], [place] [address] Colton Cruz MD, Network Announcer CLIA: [id number] Vitamin D 25-Hydroxy 40.0 30.0-100.0 ng/mL Interpretation of Vitamin D 25 OH: < 20 ng/mL - Deficiency 20 - 29 ng/mL - Insufficiency 30 - 100 ng/mL - Sufficiency > 100 ng/mL - Super-therapeutic- toxicity may occur above this level. Clinical correlation required. Glycohemoglobin A1c (in hous e) Reviewed date:05/12/2024 12:08:40 PM Interpretation: Performing Lab: Notes/Report: glycohemoglobin 6.9% 5 - 6.5 % P-Comprehensive Metabolic Pa rob (CMP) Reviewed date:05/14/2024 08:42:20 AM Interpretation:gluc 188, bun 27 Performing Lab: Notes/Report: Test performed by [facility] [address] [place] [address] , [address], [place] [address] Colton Cruz MD, Network Announcer CLIA: [id number] Sodium 138 135-145 mmol/L Potassium 4.1 3.5-5.3 [...] 3.3 Performing Lab: Notes/Report: Test performed by [facility] [address] [place], [place] [address] , [address], [place] [address] Colton Cruz MD, Network Announcer CLIA: [id number] Cholesterol 187 <200 mg/dL Triglycerides 141 <150 [...] Normal Performing Lab: Notes/Report: Test performed by [facility], [address] , [address], [place] [address] Colton Cruz MD, Network Announcer CLIA: [id number] PSA 0.32 <4.00 ng/mL Please note this is an ultrasensitive PSA assay with a lower limit of detection of 0.014 ng/mL. This test is performed by the [employer] ECLIA methodology. Values obtained with different assay methods or kits cannot be directly compared. P-Microalbumin/Creatinine, R andom Urine Sample Reviewed date:05/14/2024 08:42:20 AM Interpretation: Normal Performing Lab: Notes/Report: Test performed by [facility] [address] [place] [address] , [address], [place] [address] Colton Cruz MD, Network Announcer CLIA: [id number] Albumin/Creatinine Ratio, Urine 6 0-30 ug/mg Microalbumin, Urine, Random 0.7 Creatinine, Urine 112.6 Reason For Referral Diagnosis 1 Coronary artery calc ification (I25.10) [facility] Referring Provider First Name Hina Referring Provider Last Name Jose R Referring Provider Speciality Physician Hasher Operator Referred Provider Specialty Cardiovascul ar Disease General Notes Kailey Temple 2024 08:43:10 AM > faxed to [facility] Cardiology Referral Priority Routine Medications Medication SIG (Take, Route, Frequency, Duration) Notes Start Date End Date Status Mupirocin 2 % 1 application Paper Bag Inspector ally Twice a day; Duration: 5 day(s) 05/12/2024 Active Zoloft 100 MG 1.5 tab Orally Once a day Active Fluticasone Propionate 50 MCG/ACT as directed in each nostril once a day; Duration: 30 day(s) 03/06/2022 Active Tamsulosin HCl 0.4 MG 1 capsule at bedti fl Orally Once a day; Duration: 90 days Active Ozempic (1 MG/DOSE) 4 MG/3ML INJECT 1 MG ONCE A WEEK SUBCUTANEOUSLY Subcutaneous once a week Active Neurontin 600 MG 1 tablet Orally Four times a day; Duration: 30 days 02/13/2025 Active Celecoxib 200 MG 1 capsule Orally Onc e a day; Duration: 30 days Active Albuterol Sulfate HFA 108 (90 Base) MCG/ACT 2 puffs as needed Inhalation every 6 hrs; Duration: 25 days Active metFORMIN HCl 500 MG 1 tablet with a fartun l Orally Once a day; Duration: 30 days Active Triamterene-HCTZ 37.5-25 MG 1 tab(s) Orally Once a day; Duration: 90 days Active Atorvastatin Calcium 20 MG 1 tablet Orally Once a day; Duration: 90 days Active Omeprazole 40 MG TAKE 1 CAPSULE BY [facility] twice a day; Duration: 60 days Active hydrOXYzine HCl 25 MG 1 tab Orally 4 consuelo es a day, prn Active Immunizations Vaccine Route Administration Date Status Comme nts COVID 19 Moderna Unknown 07/28/2020 Administered COVID 19 Moderna Unknown 08/25/2020 Administered Fluzone PF Quad (6-35 months) Unknown 02/20/2021 Administered Fluzone PF Quad (6-35 months) Unknown 02/04/2022 Administered Fluzone PF Quad (6-35 months) Unknown 01/31/2023 Administered Fluzone Quad (6months&older) IM Intramuscular 02/07/2018 Administered Fluzone Quad (6months&older) IM Intramuscular 02/24/2019 Administered PNEUMOVAX 23 VACCINE IM Intramuscular 08/22/2017 Administe red Tetanus Tdap-Adacel (over 7yrs) IM Intramuscular 08/22/2017 Administered Problems Problem Type SNOMED Code ICD Code Onset Dates Problem Status W/U Status Risk Notes Problem Weight gain (590253720) Weight gain (R63.5) Active confirmed Problem Hypokalemia (13543130) Hypokalemia (E87.6) Active confirmed Problem Essential hypertension (11948757) Essential hypertension (I10) Active confirmed Problem Osteoarthritis of knee (082734645) DJD (degenerative joint disease) of knee (M17.9) Active confirmed Problem Cervical radiculopathy (17219506) Cervical radiculopathy (M54.12) Active confirmed Problem Mixed anxiety and depressive disorder (608247504) Depression with anxiety (F41.8) Active confirmed Problem BMI 30+ - obesity (022867936) BMI 32.0-32.9,adult (Z68.32) Active confirmed Problem Acute constipation (187607073) Acute constipation (K59.00) Active confirmed Problem Acute exacerbation of chronic obstructive airways disease (686578421) COPD exacerbation (J44.1) Active confirmed Problem Actinic keratosis (353890) Actinic keratosis (L57.0) Active confirmed Problem Mixed hyperlipidemia (424688099) Mixed hyperlipidemia (E78.2) Active confirmed Problem Primary insomnia (8282492) Primary insomnia (F51.01) Active confirmed Problem Osteoarthritis of hip (300235140) Osteoarthritis of hip, unspecified (M16.9) Active confirmed Problem Degeneration of cervical intervertebral disc (48231783) Degenerative disc disease, cervical (M50.30) Active confirmed Problem Disorder of prostate (88977421) Benign prostatic disease (N42.9) Active confirmed Problem Reactive depression (situational) (89697945) Situational depression (F43.21) Active confirmed Problem Chronic fatigue syndrome (66570672) Chronic fatigue (R53.82) Active confirmed Problem COPD - Chronic obstructive pulmonary disease (59379249) Chronic obstructive pulmonary disease, unspecified COPD type (J44.9) Active confirmed Problem Insomnia disorder related to another mental disorder (79120475) Psychophysiological insomnia (F51.04) Active confirmed Problem Carpal tunnel syndrome of left wrist (376477677868443) Carpal tunnel syndrome of left wrist (G56.02) Active confirmed Problem Dyslipidemia (427191202) Dyslipidemia (E78.5) Active confirmed Problem Low back pain (599626738) Acute left-sided low back pain without sciatica (M54.5) Active confirmed Problem Type II diabetes mellitus without complication (253653328) Type 2 diabetes mellitus without complication, without long-term current use of insulin (E11.9) Active confirmed Problem Pain in right sacroiliac joint (9914655058103492 7) Pain of right sacroiliac joint (M53.3) Active confirmed Problem Atrophic gastritis (95602186) Chronic gastritis without bleeding, unspecified gastritis type (K29.50) Active confirmed Problem Benign prostatic hypertrophy without outflow obstruction (920787723) Benign prostatic hyperplasia without lower urinary tract symptoms (N40.0) Active confirmed Problem History of right hip replacement (6732651193262406 ) Status post right hip replacement (Z96.641) Active confirmed Problem Anxiety depression (184923707) Anxiety with depression (F41.8) Active confirmed Problem Arthritis of right hip (6832973069551004 ) Arthritis of right hip (M16.11) Active confirmed Problem Osteoarthritis of knee (399958249) Arthropathy of knee (M17.10) Active confirmed Problem Allergic rhinitis (15166351) Allergic rhinitis, unspecified seasonality, unspecified trigger (J30.9) Active confirmed Problem Neck sprain (444871270) Neck sprain, initial encounter (S13.9XXA) Active confirmed Problem Chronic alcoholism in remission (903755289) Alcoholism in remission (F10.21) Active confirmed Problem Atherosclerotic heart disease of [place] coronary artery without angina pectoris (378425280384491) Coronary artery calcification (I25.10) Active confirmed Vital Signs Heart Rate 84 /min 02/11/2025 Blood pressure diastolic 72 mm Hg 02/11/2025 Height 73 in 02/11/2025 Blood pressure systolic 130 mm Hg 02/11/2025 Weight 217.2 lbs 02/11/2025 BMI 28.65 kg/m2 02/11/2025 Encounters Encounter Location Date Provider Diagnosis [facility] [address] [place] [address] [place] [id number] 05/12/2024 Burke Smith Type 2 diabetes sae itus without complication, without long-term current use of insulin E11.9 ; Benign prostatic disease N42.9 ; Essential hypertension I10 ; Alcoholism in remission F10.21 ; Arthritis of right hip M16.11 ; History of tobacco use Z87.891 ; Scalp abscess L02.811 and Mixed hyperlipidemia E78.2 [facility] [address] [place] [id number] 07/18/2024 Burke Smith DJD (degenerative adolph int disease) of knee M17.[address] [place] [id number] 08/12/2024 Klaudia Potts Tobacco use disorder Z72.0 and Osteoarthritis of hip, unspecified M16.9 [facility] [address] [place], [place] [id number] 09/10/2024 Hina Odell Osteoarthritis of hi p, unspecified M16.9 ; Type 2 diabetes mellitus without complication, without long-term current use of insulin E11.9 ; Essential hypertension I10 ; Mixed hyperlipidemia E78.2 ; Anxiety with depression F41.8 ; Chronic obstructive pulmonary disease, unspecified COPD type J44.9 ; Tobacco use disorder Z72.0 ; Primary insomnia F51.01 and BMI 32.0-32.9,adult Z68.32 [facility] [address] [place] [id number] 11/27/2024 Burke Smith Anxiety with depress ion F41.8 ; Alcoholism in remission F10.21 ; Status post right hip replacement Z96.641 and BMI 29.0-29.9,adult Z68.29 [facility] [address] [place] [id number] 01/12/2025 Burke Smith Type 2 diabetes sae itus without complication, without long-term current use of insulin E11.9 ; Chronic gastritis without bleeding, unspecified gastritis type K29.50 ; Essential hypertension I10 ; Arthropathy of knee M17.10 ; Anxiety with depression F41.8 and BMI 29.0-29.9,adult Z68.29 [facility] [address] [place] [id number] 02/11/2025 Hina Odell Type 2 diabetes sae itus without complication, without long-term current use of insulin E11.9 ; Chronic gastritis without bleeding, unspecified gastritis type K29.50 ; Essential hypertension I10 and Anxiety with depression F41.8 [facility] [address] [place] [id number] 02/12/2025 Hina Jose R Type 2 diabetes sae itus without complication, without long-term current use of insulin E11.9 ; Chronic fatigue R53.82 ; Essential hypertension I10 and Mixed hyperlipidemia E78.2 [facility] [address] [place] [id number] 11/10/2024 Burke Smith Type 2 diabetes sae itus without complication, without long-term current use of insulin E11.9 and Status post right hip replacement Z96.641 [facility] [address] [place], [place] [id number] 11/20/2024 Hina Odell Depression with anxi ety F41.8 and Psychophysiological insomnia F51.04 [facility] [address] [place] [id number] 03/19/2024 Burke Smith [facility] [address] [place], [place] [id number] 05/09/2024 J Damon Smith [facility] [address] [place], [place] [id number] 05/14/2024 J Damon Smith [facility] [address] [place], [place] [id number] 06/19/2024 J Damon Smith Degenerative disc di sease, cervical M50.30 [facility] [address] [place], [place] [id number] 07/14/2024 J Damon Smith [facility] [address] [place], [place] [id number] 07/28/2024 J Damon Smith [facility] [address] [place], [place] [id number] 08/25/2024 J Damon Smith [facility] [address] [place] [id number] 09/15/2024 Hina Crowdy [facility] [address] [place], [place] [id number] 09/18/2024 Hina Crowdy [facility] [address] [place] [id number] 10/10/2024 Hina Crowdy [facility] [address] [place], [place] [id number] 10/14/2024 J Damon Smith Degenerative disc di sease, cervical M50.30 [facility] [address] [place], [place] [id number] 10/17/2024 J Damon Smith Primary insomnia F51 .01 [facility] [address] [place], [place] [id number] 11/25/2024 J Damon Smith [facility] [address] [place], [place] [id number] 12/02/2024 J Damon Smith [facility] [address] [place] [id number] 12/16/2024 J Damon Smith [facility] [address] [place] [id number] 01/15/2025 Burke Smith [facility] [address] [place] [id number] 02/13/2025 Suraj Wiseman Degenerative disc di sease, cervical M50.30 [facility] [address] [facility] [address] [place], [place] [id number] 02/18/2025 Hina Odell Assessments Encounter Date Diagnosis (ICD Code) Assessment Notes Treatment Notes Treatment Clinical Notes Section Notes 05/12/2024 Benign prostatic disease (ICD-10 - N42.9) [...] hydroxyzine. 11/20/2024 Psychophysiological insomnia (ICD-10 - F51.04) 11/27/2024 Anxiety with depress ion (ICD-10 - F41.8) 11/27/2024 Alcoholism in [facility] ion (ICD-10 - F10.21) 01/12/2025 Type 2 diabetes mellitus without complication, without long-term current use of insulin (ICD-10 - E11.9) 01/12/2025 Chronic gastritis without bleeding, unspecified gastritis type (ICD-10 - K29.50) 02/11/2025 Type 2 diabetes mellitus without complication, without long-term current use of insulin (ICD-10 - E11.9) Will come back for fasting labs: CBC, CMP, Lipid, A1C, Vit D, Vit B12 02/12/2025 Type 2 diabetes mellitus without complication, without long-term current use of insulin (ICD-10 - E11.9) 02/13/2025 Degenerative disc disease, cervical (ICD-10 - M50.30) 11/27/2024 Status post right hi p replacement (ICD-10 - Z96.641) 02/12/2025 Chronic fatigue (ICD -10 - R53.82) 02/11/2025 Chronic gastritis without bleeding, unspecified gastritis type (ICD-10 - K29.50) 01/12/2025 Essential hypertensi on (ICD-10 - I10) 09/10/2024 Essential hypertensi on (ICD-10 - I10) 05/12/2024 Essential hypertensi on (ICD-10 - I10) 05/12/2024 Alcoholism in [facility] ion (ICD-10 - F10.21) 09/10/2024 Mixed hyperlipidemia (ICD-10 - E78.2) 11/27/2024 BMI 29.0-29.9,adult (ICD-10 - Z68.29) 02/12/2025 Essential hypertensi on (ICD-10 - I10) 01/12/2025 Arthropathy of knee (ICD-10 - M17.10) 02/11/2025 Essential hypertensi on (ICD-10 - I10) 01/12/2025 Anxiety with depress ion (ICD-10 - F41.8) 02/12/2025 Mixed hyperlipidemia (ICD-10 - E78.2) 02/11/2025 Anxiety with depress ion (ICD-10 - F41.8) 09/10/2024 Anxiety with depress ion (ICD-10 - F41.8) 05/12/2024 Arthritis of right h ip (ICD-10 - M16.11) 05/12/2024 History of tobacco u se (ICD-10 - Z87.891) 09/10/2024 Chronic obstructive pulmonary disease, unspecified COPD type (ICD-10 - J44.9) 01/12/2025 BMI 29.0-29.9,adult (ICD-10 - Z68.29) 05/12/2024 Scalp abscess (ICD-1 0 - L02.811) 09/10/2024 Tobacco use disorder (ICD-10 - Z72.0) He has been off of nicotine for 30 days. Will check a level today. 09/10/2024 Primary insomnia (ICD-10 - F51.01) 09/10/2024 BMI 32.0-32.9,adult (ICD-10 - Z68.32) 05/12/2024 Mixed hyperlipidemia (ICD-10 - E78.2) Plan Of Treatment Pending Test Test Name Order Date Cologuard 03/06/2022 Next Appt Details Provider Name:Hina houston, 02/26/2025 04:00:00 PM, [address], [address], [place], [place], [id number], Insurance Providers Payer Name Payer Address Payer Phone Subscriber Number Group Number Insured Name Patient Relationship to Insured Coverage Start Date Coverage End Date [employer] [facility] [id number] [place], [place] [id number] ARRON BROWN Self - patient is the insured Medications [...] - dr Harding 09/2020 colonoscopy, Dr. Staton, [facility] , [facility] 10/22/2024 Hospitalization History Reason Date(Month/Year) [facility] ER Right hand/arm red, swollen, and infected 09/26/2019
--- OUTSIDE RECORDS SUMMARY | 2025-02-25 13:28 | XMS_ITS | Encounter Summary ---
Author Organization Healthcare Address [address] [place] [address] Care Team Providers Care Buckle Sewer Name Role Phone Dany Smith MD Primary Care Provider [phone] Encounter Details Date Type Department Care Team (Late st Contact Info) Description 02/05/2024 Orders Only External Location [address] [place] [address] Provider, External Social History Tobacco Use Types [...] on filedocumented in this encounter Care Teams Buckle Sewer Relationship Specialty Start Date End Date Dany Smith MD [address] [place] [address] PCP - General 05/07/24 documented as of this encounter
--- OUTSIDE RECORDS SUMMARY | 2025-02-25 13:28 | XMS_ITS | Encounter Summary ---
Author Organization [facility] Address [address] [place] [address] Care Team Providers Care Cook Chill Technician Name Role Phone Dany Smith MD Primary Care Provider [phone] Reason for Referral * Consultation (Routine) - Closed Specialty Diagnoses / Procedures Referred By Ifrah phelan Referred To Contact Orthopaedic Surgery Diagnoses Primary osteoarthritis of right hip Alistair Rivas DO [address] [place] [address] Phone: tel: fax: Jose Ang MD [address] [address] Phone: tel: fax: Referral ID Status Reason Start Date Expiration Date Visits Re quested Visits Authorized [id number] Closed 05/06/2024 11/05/2025 1 1 Encounter Details Date Type Department Care Team (Latest Contact Info) Description 05/06/2024 Community [facility] [address] [place] [address] Alistair Rivas DO [address] [place] [address] Primary osteoarthritis of right hip (Primary Dx) [...] Primary documented in this encounter Care Teams Cook Chill Technician Relationship Specialty Start Date End Date Dany Smith MD [address] [place] [address] PCP - General 05/07/24 documented as of this encounter
--- OUTSIDE RECORDS SUMMARY | 2025-02-25 13:29 | XMS_ITS | Referral Summary ---
Author Organization [employer] ([place], [place], [place], [place]) Address [address] [place] [address] Care Team Providers Care Flatwork Feeder Name Role Phone Dany Smith MD Primary Care Provider [phone] Allergies No known active allergies Medications Ozempic [...] on file Medical Devices Implanted Type Area Director Of Education Device Identifier Shelf Expiration Date Model / Serial / Lot Plate And Screws For Lumbar Fusion IMPLANTS Pwdr Cellerate Clgn 1gm Strl [id number]-[id number] - [id number] Implanted:Qty : 1 on 10/22/2024 by Geoff Aragon MD at [facility] IMPLANTS Right: Hip [employer] 09/11/2026 WCI-01-SA CRXP / [id number] / Pain Mgmt/Stimulat or Pain Mgmt/Stimulat or Cup Clstr-Hole Altn Pcg6 54mm 59-242-10 4 - [id number] Implanted:Qty : 1 on 10/22/2024 by Geoff Aragon MD at [facility] [employer] Right: Hip [employer] 09/26/203354 / [id number] / Liner Ext Cov Grp6 40mm 0 - [id number] Implanted:Qty : 1 on 10/22/2024 by Geoff Aragon MD at [facility] [employer] Right: Hip [employer] 04/24/202740 / [id number] / Stem Fem Pf Sz6 104mm 190- - [id number] Implanted:Qty : 1 on 10/22/2024 by Geoff Aragon MD at [facility] [employer] Right: Hip [employer] 10/13/2028 190-31- / [id number] / Head Fem 40mm 14 3.5mm 170-40- - [id number] Implanted:Qty : 1 on 10/22/2024 by Geoff Aragon MD at [facility] [employer] Right: Hip [employer] 10/16/2028 170-40-03 / [id number] / Procedures Procedure Name Priority Date/Time Associated Diagnosis Comments HEMOGLOBIN A1C Routine 10/16/2024 10:53 AM EDT Preop examination from Last 3 Months or Most Recently Relevant to Health Maintenance Results * (ABNORMAL) Hemoglobin A1c (10/16/2024 10:53 AM EDT) Hemoglobin A1C 7.0(H) 4.2 - 6.3 % 10/16/2024 1:36 PM EDT [facility] Comment: Hemoglobin A1C levels are related to mean glucose during the preceding 2-3 months. Less than 7% demonstrates glycemic control in diabetic patients. Hemoglobin AlC % Suggested Diagnosis > or = 6.5 Diabetic 5.7 - 6.4 Prediabetic <5.7 Non-diabetic eAVG Glucose 154.2 mg/dL 10/16/2024 1:36 PM EDT [facility] Blood Venipuncture / Unknown 10/16/2024 10:53 AM EDT 10/16/2024 1:13 PM EDT us Luís Thakur MD LAB BLOOD ORDERABLES [facility] Result [facility] [address] [phone] from Last 3 Months or Most Recently Relevant to Health Maintenance Additional Health Concerns Infection Onset Date Last Indicated MRSA (C) 10/16/2024 10/16/2024 [facility] [id number] [facility] [address] [facility] [employer] Advance Directives For more information, please contact: [phone] * Full Code (Latest Code Status on File) Date Activated Date Inactivated Comments 10/22/2024 6:56 AM 10/22/2024 6:39 PM Care Teams Flatwork Feeder Relationship Specialty Start Date End Date Dany Smith MD [address] [facility] [address] [place] [phone] PCP - General Family Medicine 10/16/24
--- OUTSIDE RECORDS SUMMARY | 2025-02-25 13:29 | XMS_ITS | Clinical Summary ---
Author Organization [employer] ([place], [place], [place], [place]) Address [address] [place] [address] Care Team Providers Care Spice Mixer Name Role Phone Dany Smith MD Primary Care Provider [phone] Allergies No known active allergies Medications Ozempic [...] 60-74 years 1-dose series) 2023 COVID-19 VACCINE (3 - 2024- season) 2024, 07/28/2020 Influenza Vaccine (#1) 2024 Hemoglobin A1C 04/17/2025 10/16/2024 DTAP/TDAP/TD VACCINES (2 - Td or Tdap) 08/23/2027 Medical Devices Implanted Type Area Can Bander Operator Device Identifier Shelf Expiration Date Model / Serial / Lot Plate And Screws For Lumbar Fusion IMPLANTS Pwdr Cellerate Clgn 1gm Strl [id number]-[id number] - [id number] Implanted:Qty : 1 on 10/22/2024 by Geoff Aragon MD at [facility] IMPLANTS Right: Hip [employer] [facility] 09/11/2026 WCI-01-SA CRXP / [id number] / Pain Mgmt/Stimulat or Pain Mgmt/Stimulat or Cup Clstr-Hole Altn Pcg6 54mm 30-360-53 4 - [id number] Implanted:Qty : 1 on 10/22/2024 by Geoff Aragon MD at [facility] [employer] Right: Hip [employer] 09/26/203354 / [id number] / Liner Ext Cov Grp6 40mm 0 - [id number] Implanted:Qty : 1 on 10/22/2024 by Geoff Aragon MD at [facility] [employer] Right: Hip [employer] 04/24/2027- / [id number] / Stem Fem Pf Sz6 104mm 190- - [id number] Implanted:Qty : 1 on 10/22/2024 by Geoff Aragon MD at [facility] [employer] Right: Hip [employer] 10/13/2028 190-31- / [id number] / Head Fem 40mm 14 3.5mm 170 - [id number] Implanted:Qty : 1 on 10/22/2024 by Geoff Aragon MD at [facility] [employer] Right: Hip [employer] 10/16/2028 170-40- / [id number] / Procedures Procedure Name Priority Date/Time Associated Diagnosis Comments HEMOGLOBIN A1C Routine 10/16/2024 10:53 AM EDT Preop examination from Last 3 Months or Most Recently Relevant to Health Maintenance Results * (ABNORMAL) Hemoglobin A1c (10/16/2024 10:53 AM EDT) Hemoglobin A1C 7.0(H) 4.2 - 6.3 % 10/16/2024 1:36 PM EDT [facility] Comment: Hemoglobin A1C levels are related to mean glucose during the preceding 2-3 months. Less than 7% demonstrates glycemic control in diabetic patients. 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
--- OUTSIDE RECORDS SUMMARY | 2025-02-25 13:29 | XMS_ITS | Encounter Summary ---
Author Organization Healthcare Address [address] [place] [address] Care Team Providers Care Fender Mechanic Name Role Phone Dany Smith MD Primary Care Provider [phone] Encounter Details Date Type Department Care Team (Late st Contact Info) Description 10/03/2023 Orders Only External Location [address] [place] [address] Alistair Rivas DO [address] [place] [address] [place] [id number] Social History Tobacco Use Types Packs/Day Years [...] on filedocumented in this encounter Care Teams Fender Mechanic Relationship Specialty Start Date End Date Dany Smith MD [address] [place] [phone] PCP - General 05/07/24 documented as of this encounter
--- OUTSIDE RECORDS SUMMARY | 2025-02-25 13:29 | XMS_ITS | Encounter Summary ---
Author Organization Healthcare Address [address] [place] [address] Care Team Providers Care Service Center Supervisor Name Role Phone Dany Smith MD Primary Care Provider [phone] Encounter Details Date Type Department Care Team (Late st Contact Info) Description 09/06/2023 Orders Only External Location [address] [place] [address] Provider, External Social History Tobacco Use Types [...] on filedocumented in this encounter Care Teams Service Center Supervisor Relationship Specialty Start Date End Date Dany Smith MD [address] [place] [id number] PCP - General 05/07/24 documented as of this encounter
--- OUTSIDE RECORDS SUMMARY | 2025-02-25 13:29 | XMS_ITS | Clinical Summary ---
Author Organization [facility] Address [address] [place] [address] Care Team Providers Care Scagliola Mechanic Name Role Phone Dany Smith MD Primary Care Provider [phone] Allergies No known active allergies Medications gabapentin [...] [facility]-HIV Screening 1963 [facility]-Hepatitis C Screening 1963 [facility]-Infant/Child/Adol SDOH Screenings 1963 [facility]- SDOH Screenings 1981 [facility]-Adult SDOH Screenings 1981 CT Colonography 2008 Colonoscopy 2008 FIT-DNA 2008 FIT 2008 FOBT 2008 Sigmoidoscopy 2008 [facility]-Colorectal Cancer Screening 2008 [facility]-Zoster Vaccines (1 of 2) 2013 [facility]-Pneumococcal Vaccine: 50+ Years (2 of 2 - PCV) 08/22/2018 08/22/2017 [id number] Vaccine (3 - Moderna risk series) 09/22/2020 [...] patient's age to complete this topic Insurance [facility] Care Teams Scagliola Mechanic Relationship Specialty Start Date End Date Dany Smith MD [address] [place] [id number] PCP - General 05/07/24
[2025-02-25 13:49] LABS: Blood Urea Nitrogen 17 mg/dl (9-20); Creatinine,Serum 1.10 mg/dl (0.66-1.25); Estimated Glomerular Filt Rate 68 ml/min (>60); GFR (African American) 82 ML/MIN (>60)
--- NOTE | 2025-02-25 14:00 | CT_ITS ---
FINAL REPORT TECHNIQUE: The patient was injected with IV contrast. Axial images were obtained through the chest in a PE protocol. 3-D reconstruction images were also performed. Individualized dose reduction techniques using automated exposure control or adjustment of the MA and/or KV according to patient's size were employed. CLINICAL HISTORY: ascending aorta dilation COMPARISON: CT low-dose 09/30/2024 FINDINGS: Mediastinal vasculature is adequately opacified. No pulmonary artery filling defects are identified to suggest PE. There is no aortic dissection. The ascending aorta measures 40 mm in diameter. There is no axillary adenopathy. There is no hilar or mediastinal adenopathy. The heart size is normal. There is no pericardial or pleural effusion. Limited images of the upper abdomen are unremarkable. No suspicious infiltrate or nodule is identified. Scarring is noted at the lung bases. IMPRESSION: No pulmonary embolus or dissection. 40 mm ascending aorta. Reviewed, Interpreted and Dictated by Kenneth Colunga MD Transcribed by María Ruiz Authenticated and [facility]
[2025-02-25] MEDS: IOPAMIDOL-370 (76%);100ML BOTTLE 85 ML IV (14:46)
[2025-02-25] MEDS: SODIUM CHLORIDE 0.9% 10ML SYR (RAD ONLY) 10 ML IV (14:46)
[2025-02-25] MEDS: 0.9 % SODIUM CHLORIDE 50 ML VIAL IV (14:46)
== END 2025-02-25 23:59 | disposition home or self-care (01) ==
LOC: RAD 13:21
PROVIDERS: PCP Family Medicine; Visit Provider Nurse Practitioner
DX: I77.810 Thoracic aortic ectasia (principal); R93.1 Abnormal findings on diagnostic imaging of heart and coronary circulation; R06.02 Shortness of breath
CPT/HCPCS: 36415; 71275; 82565; 84520; Q9967